=== PATIENT | female | born 1985 | race Caucasian/White ===

== ENCOUNTER → 2018-04-12 13:40 | Outpatient (CLI) | payer OTHER, SELFPAY ==
[2018-04-20 09:48] LABS: HPV APTIMA, High Risk Negative (Negative)
== END ==
PROVIDERS: Visit Provider Obstetrics & Gynecology
DX: Z12.4 Encounter for screening for malignant neoplasm of cervix (principal); N92.6 Irregular menstruation, unspecified
CPT/HCPCS: 88175; G0145

== ENCOUNTER → 2018-04-25 08:06 | Outpatient (CLI) | payer OTHER, SELFPAY ==
[2018-04-25 09:13] LABS: Hematocrit 36.4 % (37-47); Hemoglobin 10.3 g/dl (12.0-15.0); Mean Corp Hgb Conc 28.3 g/gl (32-36); Mean Corpuscular Hgb 21.4 pg (27.0-32.0); Mean Corpuscular Volume 75.7 fL (81-99); Mean Platelet Vol. 10.8 fl (6.2-12.0); Platelet Count 283 K/mm3 (150-450); RBC Distribution Width CV 16.9 % (11.6-14.6); RBC Distribution Width SD 46.5 fl (35.1-43.9); Red Blood Count 4.81 M/mm3 (4.2-5.4); White Blood Count 8.7 K/mm3 (4.4-11.0)
[2018-04-25 09:15] LABS: Scan Indicated on CBC? Y/N NO
[2018-04-25 09:33] LABS: Progesterone Level 0.19 ng/mL (See Comment); Vitamin D,25 Hydroxy 16.6 ng/mL (29.95-100.01)
[2018-04-25 09:38] LABS: ALB/GLOB Ratio 0.9 RATIO (0.9-2.4); AST(SGOT) 43 U/L (15-37); Alanine Aminotransfer ALT/SGPT 60 U/L (13-56); Albumin, Serum 3.5 g/dL (3.2-5.0); Alkaline Phosphatase 93 U/L (45-117); Anion Gap 9 (5-15); BUN 6 mg/dL (7-18); BUN/Creat Ratio 7.7 RATIO (10-20); Chloride 108 mmol/L (98-107); Cholesterol 141 mg/dL (200); Creatinine, Serum 0.78 mg/dL (0.55-1.02); EST Glomerular Filtration Rate 92 mL/min (>60); Est Glom Filt Rate - Afr Amer 111 mL/min (>60); Estradiol 42.7 pg/mL; Follicle Stimulating Hormone 3.9 mIU/mL; Free T3 2.9 pg/mL (2.18-3.98); Globulin 4.1 g/dL (2.2-4.2); Glucose 114 mg/dL (74-106); High Density Lipoprotein 30 mg/dL; Luteinizing Hormone 3.7 mIU/mL; Potassium 3.3 mmol/L (3.5-5.1); Protein, Total 7.6 g/dL (6.4-8.2); Sodium Level 142 mmol/L (136-145); T4 Free Direct 1.01 ng/dL (0.76-1.46); Thyroid Stim Hormone (TSH) 2.95 uIU/mL (0.358-3.74); Triglycerides 210 mg/dL; Very Low Density Lipoprotein 42 mg/dL (5-40)
[2018-04-25 14:48] LABS: Prolactin 7.7 ng/mL
[2018-04-26 09:17] LABS: DHEA Sulfate 128.6 ug/dL (84.8-378.0)
[2018-04-26 10:51] LABS: Sex Hormone-binding Globulin 19.8 nmol/L (24.6-122.0)
[2018-04-28 10:58] LABS: 17-Hydroxyprogesterone 41 ng/dL (.)
== END ==
PROVIDERS: Visit Provider Obstetrics & Gynecology
DX: N92.4 Excessive bleeding in the premenopausal period (principal); I10 Essential (primary) hypertension
CPT/HCPCS: 36415; 80053; 80061; 82306; 82533; 82627; 82670; 83001; 83002; 83498; 84144; 84146; 84270; 84403; 84439; 84443; 84481; 85027; 82626

== ENCOUNTER → 2018-05-16 08:13 | Outpatient (CLI) | payer OTHER, SELFPAY ==
--- NOTE | 2018-05-16 08:19 | US_ITS ---
STUDY: ABDOMINAL ULTRASOUND - RIGHT UPPER QUADRANT REASON FOR VISIT: Female, 32 years old. Elevated liver enzymes. Prior cholecystectomy. TECHNIQUE: Ultrasound evaluation of the right upper quadrant was performed with real-time and static sinclair-scale imaging. TECHNICAL QUALITY: Adequate. COMPARISON: None. FINDINGS: Liver: The liver is enlarged and measures 21.3 cm. There is increased echogenicity consistent with fatty infiltration. The bile ducts are within normal limits. There is hepatic color flow. The direction of portal flow is hepatopetal. There is no demonstrated mass lesion. Gallbladder: The patient is status post cholecystectomy. Common Bile Duct (C.B.D.): The common bile duct measures 4.4 mm. Pancreas: Normal size of the head, body and tail of the pancreas. There is increased echogenicity of the pancreas. There is no demonstrated pancreatic mass or cyst. Right Kidney: Normal size of the right kidney. The right kidney measures 12.4 cm x 6.7 cm x 5.8 cm. Normal renal cortex. The right cortex measures 1.8 cm. There is no demonstrated renal mass or cyst. There is no right hydronephrosis. US/Liver IMPRESSION: Hepatomegaly and fatty infiltration of the liver. Electronically Signed: Jameel Mckinney MD at 15:27 EDT Tel [phone], Service support ,
== END ==
PROVIDERS: Visit Provider Obstetrics & Gynecology
DX: R94.5 Abnormal results of liver function studies (principal)
CPT/HCPCS: 76705

== ENCOUNTER 2018-05-26 05:29 | Day surgery (SDC) | payer SELFPAY, OTHER ==
[2018-05-19 14:47] VITALS: BP 156/104; PULSE 89; RESP 18; TEMP 36.4; O2SAT 92; BMI 60.0
--- NOTE | 2018-05-19 15:07 | SDCEKG_ITS ---
Test Reason : Blood Pressure : / mmHG Vent. Rate : 091 BPM Atrial Rate : 091 BPM P-R Int : 158 ms QRS Dur : 102 ms QT Int : 380 ms P-R-T Axes : 028 032 035 degrees QTc Int : 467 ms Normal sinus rhythm Nonspecific ST abnormality Abnormal ECG Confirmed by SAMUEL AYALA ([id number]), newspaper editor managing NIKKI CHOI ([id number]) on 05/24/2018 1:44:44 PM Referred By: Rosalina Berrios Confirmed By:SAMUEL AYALA
[2018-05-19 15:53] LABS: Partial Thromboplast Time 28.5 Seconds (24.1-36.2); Prothrombin Time (Protime)PT. 13.5 SECONDS (11.7-14.9)
[2018-05-24 15:36] LABS: Thyroglobulin Antibody < 1.0 IU/mL (0.0-0.9); Thyroid Peroxidase AB 18 IU/mL (0-34)
[2018-05-26] VITALS (7 sets, daily range): BP systolic 121–156; BP diastolic 67–95; PULSE 88–99; RESP 16–30; TEMP 35.9–36.2; O2SAT 92–99; BMI 60.0
[2018-05-26 05:56] LABS: Internal QC Validated? YES +Cl - CLEAR BKGD; Pregnancy, Urine Negative Negative
--- NOTE | 2018-05-26 07:47 | EMB_PTH ---
PATIENT: TASIA EDWARDS LOC: [facility] [place] U#:[id number] AGE/SX: 32/F ROOM: RE05/26/[address]: Dr. Rosalina Fu MD : [id number] BED: DIS: 05/26/2018 SPEC #: [id number] RECD: 05/26/18 10:51 STATUS: AMANDA FIGUEROAVera #: [id number] PAMELA: 05/26/18 07:[address]: Rosalina Farrell DEPT: SURGICAL PATHOLOGY RECD BY: Teofilo Amin ENTERED: 05/26/18 11:55 SP TYPE: ENDOM BX/C OTHR DR: Dr. Stacy Malik MD Tissues: Endometrium, NOS Procedures: Surgery Specimen Level IV HEADER OPERATION: Hysteroscopy, dilation and curettage, Tyrone Clear PRE-OP DIAGNOSIS: Menorrhagia TISSUE SUBMITTED: Endometrial tissue MICROSCOPIC DIAGNOSIS Endometrial curettings: Endometrial adenocarcinoma, endometrioid type, FIGO grade 2. Fragments of benign ecto- and endocervical mucosa. DOROTEO:mateo 05/27/18 COMMENT Immunohistochemistry for mismatch repair protein can be performed if clinically indicated. Please notify the laboratory if it is needed. MICROSCOPIC DESCRIPTION Slides are reviewed. GROSS DESCRIPTION Received in fixative is one container labeled with the patient's name and designated endometrial curettings. The specimen consists of multiple irregular fragments of light bess soft tissue that in aggregate measure 7.5 x 6 x 1.5 cm. The entire specimen is submitted in 17 cassettes. / DOROTEO:mateo 05/26/18 TC:0 CPT: 69899
--- NOTE | 2018-05-26 08:40 | DCINST_ITS ---
Discharge Diet: No Restrictions Discharge Activity: Return to Normal Activity, May Shower, - - No tub bath for 2 weeks May resume sexual activity in: 4 weeks Call your doctor if your incision/area has: Sudden Increased Bleeding Call your doctor if you observe: Fever of 101 or Higher, Inability to urinate, Inability to have a bowel movement, Using more than one pad per hour, Shortness of breath, Chest pain, Calf discomfort, Uncontrolled pain Allergies/Adverse Reactions: Allergies sulfamethoxazole [From ] Allergy (Verified 05/19/18 14:37) SORES IN MOUTH trimethoprim [From ] Allergy (Verified 05/19/18 14:37) SORES IN MOUTH Medications to take at Discharge Calcium Carbonate [Calcium] 600 mg PO DAILY 05/19/18 Cholecalciferol (Vitamin D3) [Vitamin D3] 5,000 unit PO DAILY 05/19/18 Iron Carbonyl [Feosol] 65 mg PO BID 05/19/18 Metformin HCl [Glucophage] 1,000 mg PO BIDCM 05/19/18 Norethindrone [Aygestin] 2 tab PO DAILY 5 Days #20 tab 05/26/18 The following prescriptions were given: Norethindrone [Aygestin] 2 tab PO DAILY 5 Days #20 tab Primary Care Physician: Stacy Malik MD [Primary Care Provider] - Test Results: Test results from this visit will be discussed in further detail at your follow- up appointment, if applicable. Please Follow Up With: Rosalina Berrios MD When: 5-7 days
--- NOTE | 2018-05-26 08:40 | PCM.IMDPSTOP ---
Problem List (1) Anemia Status: Acute Qualifiers: Anemia type: iron deficiency Iron deficiency anemia type: chronic blood loss Qualified Code(s): D50.0 - Iron deficiency anemia secondary to blood loss (chronic) (2) BMI 60.0-69.9, adult Status: Acute (3) Excessive and frequent menstruation with irregular cycle Status: Acute (4) Metabolic syndrome Status: Acute Immediate Post-Op Note Date of Procedure: 05/26/18 Primary Surgeon/Physician: Rosalina Berrios, director of outpatient services: Mercedez Benson Pre-Operative Diagnosis: Menometrorrhagia, Thickened endometrial stripe Post-Operative Diagnosis: Menometrorrhagia, Thickened endometrial stipe Surgery/Procedure Performed:: Hysterosocpy, dilation and curettage, TruClear polypectomy Description of Surgical Findings:: Abundant polypoid tissue within endometrial cavity Estimated Blood Loss: 20 mL Specimen's removed: endometrial curettings Type of Anesthesia:: Local MAC ASA Class: ASA3 Severe Disease - Admit VTE Documentation VTE Present on Admission: No VTE Mechan Device Prophylaxis: SCD's VTE Pharm Prophylaxis ordered?: No
--- NOTE | 2018-05-26 09:00 | PCM.OPRPT ---
Problem List (1) Anemia Status: Acute Qualifiers: Anemia type: iron deficiency Iron deficiency anemia type: chronic blood loss Qualified Code(s): D50.0 - Iron deficiency anemia secondary to blood loss (chronic) (2) BMI 60.0-69.9, adult Status: Acute (3) Excessive and frequent menstruation with irregular cycle Status: Acute (4) Metabolic syndrome Status: Acute Report of Operation Date of Procedure: 05/26/18 Pre-Operative Diagnosis: Menometrorrhagia, Thickened endometrial stripe Post-Operative Diagnosis: Menometrorrhagia, Thickened endometrial stipe Surgery/Procedure Performed:: Hysterosocpy, dilation and curettage, TruClear polypectomy Description of Surgical Findings:: Abundant polypoid tissue within endometrial cavity drapery inspector: Mercedez Benson Type of Anesthesia:: Local MAC Specimen's removed: endometrial curettings Estimated Blood Loss (mL): 20 mL Description of Procedure: Patient taken to the operating room and signed and performed. She is placed in the dorsal supine position and induced under MAC. She is then placed into dorsal lithotomy and examination under anesthesia performed. The perineum was prepped and draped in sterile fashion. The bladder was straight cathed that arise. A long weighted speculum placed the vagina and the cervix visualized and grasped at the anterior cervical lip. A paracervical block was placed to a total of 20 cc of 1% lidocaine without epinephrine. The cervix was already significantly dilated consistent with 26 [place]. There was abundant vaginal bleeding without any hemorrhage however. Hysteroscopy was performed demonstrating a large intrauterine polyp as well as papillary changes throughout the uterine cavity. I was unable to visualize the ostia due to the prominence of changes in the polyp. The fluid deficit was quickly reached due to the saline required for optimal visualization given the amount of bleeding present. 1500 mL a aborted the true clear procedure. Traditional D&C with polypectomy was performed retrieving abundant tissue. The procedure was completed with improvement of the bleeding. The tenaculum and speculum were removed. The tenaculum site was hemostatic. The patient was placed into dorsal supine position, awakened and transferred to the recovery room without complication. Sponge counts were correct ?2. - Complications None - Admit VTE Documentation VTE Present on Admission: No VTE Mechan Device Prophylaxis: SCD's
--- NOTE | 2018-05-26 10:18 | SUR.PHASEII ---
AT 1001, PHASE 2 COMPLETE. AWAITING RIDE HOME WHICH CANNOT COME UNTIL 1200 AT THE EARLIEST. PATIENT AND FAMILY 'HOTEL STATUS' AT THIS POINT FOR THEIR CONVENIENCE.
--- NOTE | 2018-05-27 08:41 | OP.PCM_ITS ---
Problem List (1) Anemia Status: Acute Qualifiers: Anemia type: iron deficiency Iron deficiency anemia type: chronic blood loss Qualified Code(s): D50.0 - Iron deficiency anemia secondary to blood loss (chronic) (2) BMI 60.0-69.9, adult Status: Acute (3) Excessive and frequent menstruation with irregular cycle Status: Acute (4) Metabolic syndrome Status: Acute Report of Operation Date of Procedure: 05/26/18 Pre-Operative Diagnosis: Menometrorrhagia, Thickened endometrial stripe Post-Operative Diagnosis: Menometrorrhagia, Thickened endometrial stipe Surgery/Procedure Performed:: Hysterosocpy, dilation and curettage, TruClear polypectomy Description of Surgical Findings:: Abundant polypoid tissue within endometrial cavity travel nurse: Mercedez Benson Type of Anesthesia:: Local MAC Specimen's removed: endometrial curettings Estimated Blood Loss (mL): 20 mL Description of Procedure: Patient taken to the operating room and signed and performed. She is placed in the dorsal supine position and induced under MAC. She is then placed into dorsal lithotomy and examination under anesthesia performed. The perineum was prepped and draped in sterile fashion. The bladder was straight cathed that arise. A long weighted speculum placed the vagina and the cervix visualized and grasped at the anterior cervical lip. A paracervical block was placed to a total of 20 cc of 1% lidocaine without epinephrine. The cervix was already significantly dilated consistent with 26 [place]. There was abundant vaginal bleeding without any hemorrhage however. Hysteroscopy was performed demonstrating a large intrauterine polyp as well as papillary changes throughout the uterine cavity. I was unable to visualize the ostia due to the prominence of changes in the polyp. The fluid deficit was quickly reached due to the saline required for optimal visualization given the amount of bleeding present. 1500 mL a aborted the true clear procedure. Traditional D&C with polypectomy was performed retrieving abundant tissue. The procedure was completed with improvement of the bleeding. The tenaculum and speculum were removed. The tenaculum site was hemostatic. The patient was placed into dorsal supine position, awakened and transferred to the recovery room without complication. Sponge counts were correct ?2. - Complications None - Admit VTE Documentation VTE Present on Admission: No VTE Mechan Device Prophylaxis: SCD's
== END 2018-05-26 10:01 | disposition home or self-care (01) ==
LOC: SDC 05:30 → AC 05:31
PROVIDERS: Anesthesiology; Visit Provider Obstetrics & Gynecology
PROC: 0UDB8ZZ Extraction of Endometrium, Via Natural or Artificial Opening Endoscopic (ICD-10-PCS; CPT 58558; principal; 2018-05-26 07:05)
DX: C54.1 Malignant neoplasm of endometrium (principal); N92.1 Excessive and frequent menstruation with irregular cycle; D50.0 Iron deficiency anemia secondary to blood loss (chronic); I10 Essential (primary) hypertension; E88.81 Metabolic syndrome and other insulin resistance; G47.30 Sleep apnea, unspecified; Z79.84 Long term (current) use of oral hypoglycemic drugs; Z79.899 Other long term (current) drug therapy
CPT/HCPCS: 58558; 36415; 81025; 85610; 85730; 86376; 86800; 86850; 86900; 88305; 93005; J7120; J2405

== ENCOUNTER → 2019-01-10 15:09 | Outpatient (CLI) | payer OTHER, SELFPAY ==
[2018-05-26 05:52] VITALS: BMI 60.0
== END ==
PROVIDERS: Visit Provider Obstetrics & Gynecology
DX: Z12.4 Encounter for screening for malignant neoplasm of cervix (principal)
CPT/HCPCS: 88175; G0145

== ENCOUNTER → 2022-04-07 | Outpatient (CLI) | payer OTHER, SELFPAY ==
[2022-04-07 11:28] LABS: Hematocrit 43.9 % (37-47); Hemoglobin 13.5 g/dL (12.0-15.0); Mean Corp Hgb Conc 30.8 g/dL (32-36); Mean Corpuscular Hgb 24.6 pg (27.0-32.0); Mean Platelet Vol. 12.9 fl (6.2-12.0); Platelet Count 220 K/mm3 (150-450); RBC Distribution Width CV 14.8 % (11.6-14.6); RBC Distribution Width SD 43.2 fl (35.1-43.9); Red Blood Count 5.49 M/mm3 (4.2-5.4); White Blood Count 7.6 K/mm3 (4.4-11.0)
[2022-04-07 11:53] LABS: T3 Total - Triiodothyronine 1.31 ng/mL (0.6-1.81); Vitamin B12 766 pg/mL (211-911); Vitamin D,25 Hydroxy 30.5 ng/mL
[2022-04-07 11:57] LABS: Hemoglobin A1c 4.7 % (3.8-5.6)
[2022-04-07 12:01] LABS: AST(SGOT) 33 U/L (15-37); Alanine Aminotransfer ALT/SGPT 53 U/L (13-56); Albumin, Serum 3.9 g/dL (3.2-5.0); Alkaline Phosphatase 99 U/L (45-117); Anion Gap 3 (5-15); BUN 11 mg/dL (7-18); BUN/Creat Ratio 11.1 RATIO (10-20); Calcium,Total 10.6 mg/dL (8.5-10.1); Chloride 110 mmol/L (98-107); Cholesterol 198 mg/dL (200); Creatinine, Serum 0.99 mg/dL (0.55-1.02); EST Glomerular Filtration Rate 68 mL/min (>60); Est Glom Filt Rate - Afr Amer 82 mL/min (>60); Estradiol 11.6 pg/mL; Ferritin 28 ng/mL (8-252); Free T3 2.6 pg/mL (2.18-3.98); Globulin 3.9 g/dL (2.2-4.2); Glucose 95 mg/dL (74-106); High Density Lipoprotein 46 mg/dL; Potassium 3.6 mmol/L (3.5-5.1); Protein, Total 7.8 g/dL (6.4-8.2); Sodium Level 143 mmol/L (136-145); T4 Free Direct 1.12 ng/dL (0.76-1.46); Thyroid Stim Hormone (TSH) 2.75 uIU/mL (0.358-3.74); Triglycerides 121 mg/dL; Very Low Density Lipoprotein 24 mg/dL (5-40)
[2022-04-08 20:57] LABS: Sex Hormone-binding Globulin 30.2 nmol/L (24.6-122.0)
== END | disposition home or self-care (01) ==
PROVIDERS: Visit Provider Obstetrics & Gynecology
DX: R53.83 Other fatigue (principal); R63.5 Abnormal weight gain; Z78.0 Asymptomatic menopausal state
CPT/HCPCS: 36415; 80053; 80061; 82306; 82607; 82670; 82728; 83036; 84270; 84403; 84439; 84443; 84480; 84481; 85027

== ENCOUNTER → 2022-11-18 | Outpatient (CLI) | payer OTHER, SELFPAY | END | disposition home or self-care (01) | PROVIDERS: PCP Family Medicine; Referring Provider Internal Medicine Endocrinology, Diabetes & Metabolism; Visit Provider Internal Medicine Endocrinology, Diabetes & Metabolism | DX: E27.9 Disorder of adrenal gland, unspecified (principal) | CPT/HCPCS: 36415; 82533 ==

== ENCOUNTER 2023-10-20 14:54 | Inpatient (IN) | payer OTHER, SELFPAY ==
[2023-10-20 14:56] VITALS: BP 167/91; PULSE 124; RESP 14; TEMP 36.6; O2SAT 94
--- NOTE | 2023-10-20 15:09 | CT_ITS ---
EXAM: CT ABDOMEN AND PELVIS WITHOUT INTRAVENOUS CONTRAST CLINICAL INDICATION: Kidney Stone TECHNIQUE: Helically acquired images were obtained of the abdomen and pelvis without intravenous contrast. This CT exam was performed using one or more of the following dose reduction techniques: automated exposure control, adjustment of the mA and/or kV according to patient size, and/or use of iterative reconstruction technique. COMPARISON: No relevant prior studies available. FINDINGS: LOWER THORAX: Unremarkable. Lung bases are clear. No cardiomegaly. No significant pericardial effusion. ABDOMEN: LIVER: There is fatty infiltration of the liver. GALLBLADDER AND BILE DUCTS: Gallbladder is nonvisualized and may be surgically absent. No intra- or extrahepatic biliary ductal dilation. PANCREAS: Unremarkable. No focal cystic mass. SPLEEN: Unremarkable. Normal size without focal cystic or solid mass. ADRENALS: Unremarkable. No nodules. KIDNEYS AND URETERS: There is left-sided hydronephrosis. There is a 9 mm stone in the proximal left ureter. There are multiple nonobstructing calyceal stones bilaterally. Normal renal size and position. STOMACH AND BOWEL: Unremarkable. No stomach or bowel distention. No focal inflammatory change. PELVIS: APPENDIX: No evidence of acute appendicitis. BLADDER: Unremarkable. REPRODUCTIVE: The patient status post hysterectomy. ABDOMEN and PELVIS: INTRAPERITONEAL SPACE: Unremarkable. No ascites or other fluid collection. No free air. BONES/JOINTS: Unremarkable. No suspicious lytic or blastic abnormality. SOFT TISSUES: Unremarkable. No discrete abdominal or pelvic wall hernia. VASCULATURE: Unremarkable. Abdominal aorta is non-dilated. LYMPH NODES: Unremarkable. No enlarged lymph nodes. CT/Abdomen/Pelvis without Cont IMPRESSION: Obstruction of the left collecting system due to a 9 mm stone in the proximal ureter. There is left-sided hydronephrosis. There are bilateral nonobstructing calyceal stones. Electronically Signed: Melchor Gonzalez MD at 16:34 EST ,
--- NOTE | 2023-10-20 15:10 | EDS_ITS ---
HPI HPI - GI History of Present Illness Chief Complaint: Flank Pain Narrative Narrative: 38-year-old female past medical history of previous ureteral stone, renal stone, insulin resistance, presents with left flank pain that began last evening. Feels somewhat similar to her previous ureteral stone. She relates history that she was seen at [facility] by urologist and had a ureteral stone that made her very sick. While they try to go after the left ureteral stone, she has a large stone in her left kidney which she was told they could not perform surgery on secondary to her weight. She has past surgical history of cholecystectomy and total hysterectomy. She denies any exacerbating or alleviating factors to her left flank pain. She denies any dysuria or hematuria, no overt fever, but has been chilled and nauseated. No vomiting. She presents because of the left flank pain that feels similar to her previous ureteral stone but the pain is not as severe. She has been taking ibuprofen with mild relief. She last took this at 10 AM, approximately 5 hours ago[address] [facility] Medical History (Updated 10/20/23 @ 16:19 by Lanette Masters) Kidney stones Home Medications calcium carbonate 600 mg calcium (1,500 mg) tablet 600 mg PO DAILY SUPPLEMENT 05/19/18 [History Last Taken 10/19/23] metformin 1,000 mg tablet 1,000 mg PO BIDCM DIABETES 05/19/18 [History Last Taken 10/19/23] magnesium oxide 420 mg tablet 420 mg PO DAILY supplement 10/20/23 [History Last Taken 10/19/23] multivitamin 1 tab PO DAILY health maintenance 10/20/23 [History Last Taken 10/19/23] Allergy/AdvReac Type Severity Reaction Status Date / Time sulfamethoxazole Allergy SORES IN Verified 10/20/23 14:55 [From ] MOUTH trimethoprim [From ] Allergy SORES IN Verified 10/20/23 14:55 MOUTH Social History Smoking Status: Never smoker ROS ROS ED ROS Narrative Constitutional: No fever, positive chills. HEENT: No sore throat. No neck pain. No loss of vision. No rhinorrhea. Cardiovascular: No chest pain. No palpitations. No pedal edema. Respiratory: No cough, no shortness of breath. Abdominal: No abdominal pain. Positive nausea. No vomiting. Genitourinary: No dysuria. No hematuria. Positive left flank pain. Musculoskeletal: No myalgias. No arthralgias. Neurologic: No headaches. No dizziness. No lightheadedness. Skin: No rash. No change in color. Psychiatric: No depression. No anxiety. EXAM Physical Exam Narrative Exam Narrative: Afebrile. Vital signs noted. HEENT: Normocephalic. Atraumatic. PERRL, EOMI. Neck soft and supple. No point tenderness or step off. Cardiovascular: Regular rate and rhythm. No murmurs, rubs, or gallops appreciated. Respiratory: No tachypnea. Lungs clear to auscultation bilaterally. Gastrointestinal: Abdomen soft, nontender, obese, with normoactive bowel sounds. No rebound or guarding. No CVA tenderness to percussion, left. Neurological: Awake. Alert. Nonfocal, nonlateralizing. Skin: No rash. Normal color. No pallor. Musculoskeletal: No pedal edema. Full range of motion extremities. Const Vital Signs: 10/20/23 14:56 10/20/23 16:26 10/20/23 16:45 Temperature 98 F 98.7 F Temperature Source Temporal Oral Pulse Rate 124 H 113 H 114 H Respiratory Rate 14 18 18 Blood Pressure 167/91 H 145/76 H 120/74 Blood Pressure Mean 116 99 89 Pulse Ox 94 94 97 Oxygen Delivery Method Room Air Room Air Room Air MDM MDM MDM Narrative Medical decision making narrative: Concern is for ureterolithiasis versus pyelonephritis. She is tachycardic. There is low concern for sepsis at this point although she is tachycardic. I will obtain a CBC and a BMP and she will be administered IV fluids at the rate of 250 mL/h. She was given ondansetron and ketorolac for analgesia and CT will be obtained to look for ureteral stone causing her left flank pain. I reviewed her laboratory work and she has a normal white count of 10.8, hemoglobin normal at 13.4, platelet count normal at 160. BMP is significant for chloride of 108, slight elevation which I think is nonspecific, she does have an acute kidney injury with a BUN of 15 and creatinine elevated at 1.30. Lactic acid is also elevated at 2.6, but this may be secondary to mild dehydration. WBC in the urine is elevated at 10-25 with negative nitrites. This will be sent for culture. CT of the abdomen and pelvis without contrast was reviewed. She does has a 9 mm stone at the ureteropelvic junction. It is a proximal stone with hydronephrosis. As she states she became septic previously, she is still tachycardic with a lactic acidosis, I discussed patient with Dr. Simmons who will admit the patient. Patient is in stable condition. History & Record Review Discussion w/independent historian: Patient and Family Lab Data Attestation: I reviewed the patient's lab results. Labs: Laboratory Results - last 24 hr 10/20/23 10/20/23 15:15 15:40 WBC 10.8 RBC 5.68 H Hgb 13.4 Hct 44.0 MCV 77.5 L MCH 23.6 L MCHC 30.5 L RDW Std Deviation 42.6 RDW Coeff of Gregory 15.3 H Plt Count 160 MPV 10.9 Immature Gran % (Auto) 0.500 Neut % (Auto) 86.7 H Lymph % (Auto) 4.8 L [place] % (Auto) 7.4 Eos % (Auto) 0.2 Baso % (Auto) 0.4 Absolute Neuts (auto) 9.4 H Absolute Lymphs (auto) 0.52 L Nucleated RBC % 0 Differential Comment SCANNED Sodium 143 Potassium 4.2 Chloride 108 H Carbon Dioxide 26.0 Anion Gap 9 BUN 15 Creatinine 1.30 H Estim Creat Clear Calc 55.47 Est GFR (MDRD) Af Amer 59 L Est GFR (MDRD) Non-Af 49 L BUN/Creatinine Ratio 11.5 Glucose 115 H Lactic Acid 2.6 H* Calcium 9.9 Urine Color Yellow Urine Clarity Sl. Cloudy Urine pH 8.0 Ur Specific [place] 1.010 Urine Protein 30 H Urine Glucose (UA) Normal Urine Ketones Negative Urine Occult Blood 25 H Urine Nitrite Negative Urine Bilirubin Negative Urine Urobilinogen Normal Ur Leukocyte Esterase 25 H Urine RBC 5-10 SEEN Urine WBC 10-25 SEEN Ur Squamous Epith Cells 0-5 SEEN Urine Bacteria RARE Urine Mucus 0 SEEN Radiography Diagnostic Testing: Clinical Impression(s) from Imaging Studies Abdomen/Pelvis CT 10/20/23 15:09 IMPRESSION: Obstruction of the left collecting system due to a 9 mm stone in the proximal ureter. There is left-sided hydronephrosis. There are bilateral nonobstructing calyceal stones. Electronically Signed: Melchor Gonzalez MD at 16:34 EST , Discharge Plan Disposition Disposition: Acute Care [facility] Discharge Date/Time: 10/20/23 17:33
[2023-10-20] MEDS: Ketorolac 30 MG/ML Syringe IV (15:17)
[2023-10-20] MEDS: 0.9% Normal Saline (1000mL) 1,000 ML 250 ML IV (15:17)
[2023-10-20] MEDS: Ondansetron 4 MG/2 ML Vial IV (15:17)
[2023-10-20 15:21] VITALS: BMI 66.6
[2023-10-20 15:33] LABS: Absolute Lymphocyte Count 0.52 X10^3/uL (0.83-4.51); Absolute Neutrophil Count 9.4 X10^3/uL (2.0-7.7); Basophil# 0.04 X10^3/uL; Basophil% 0.4 % (0-1); Eosinophil# 0.02 X10^3/uL; Eosinophils% 0.2 % (0-5); Hemoglobin 13.4 g/dL (12.0-15.0); Lymphocyte # 0.52 X10^3/ul (0.83-4.51); Lymphocyte % 4.8 % (19-41); Mean Corp Hgb Conc 30.5 g/dL (32-36); Mean Corpuscular Hgb 23.6 pg (27.0-32.0); Mean Corpuscular Volume 77.5 fL (81-99); Mean Platelet Vol. 10.9 fl (6.2-12.0); Monocyte% 7.4 % (0-10); NRBC Flagged by Analyzer 0 % (0-5); Neutrophil # 9.41 X10^3/uL (2.7-7.7); Neutrophil % 86.7 % (47-70); POSITIVE DIFFERENTIAL YES; Platelet Count 160 K/mm3 (150-450); RBC Distribution Width CV 15.3 % (11.6-14.6); RBC Distribution Width SD 42.6 fl (35.1-43.9); Red Blood Count 5.68 M/mm3 (4.2-5.4); White Blood Count 10.8 K/mm3 (4.4-11.0)
[2023-10-20 15:35] LABS: Differential Indicated SCAN CRITERIA MET
[2023-10-20 15:46] LABS: Anion Gap 9 (5-15); BUN 15 mg/dL (7-18); BUN/Creat Ratio 11.5 RATIO (10-20); Calcium,Total 9.9 mg/dL (8.5-10.1); Chloride 108 mmol/L (98-107); EST Glomerular Filtration Rate 49 mL/min (>60); Est Glom Filt Rate - Afr Amer 59 mL/min (>60); Estimated Creatinine Clearance 55.47 ml/min; Glucose 115 mg/dL (74-106); Potassium 4.2 mmol/L (3.5-5.1); Sodium Level 143 mmol/L (136-145)
[2023-10-20 15:50] LABS: Mucous, Urine 0 SEEN /hpf (<or=2+)
[2023-10-20 16:00] LABS: Color, Urine Yellow (Yellow); Glucose, Dipstick Normal (Normal); Ketone-Dipstick Negative (Negative); Leukocyte Esterase-Dipstick 25 /ul (Negative); Nitrite-Dipstick Negative (Negative); Occult Blood-Urine 25 /ul (Negative); Protein-Dipstick 30 mg/dl (Negative); Urine Bilirubin Dipstick Negative (Negative); Urine Clarity Sl. Cloudy (Clear); Urine Urobilinogen Normal (Normal)
[2023-10-20 16:08] LABS: Red Blood Cells-Urine 5-10 SEEN /hpf (0-5); White Blood Cells 10-25 SEEN /hpf (0-5)
[2023-10-20 16:09] LABS: Bacteria RARE /hpf (None Seen); Squamous Epithelial Cells - UA 0-5 SEEN /hpf (5-10)
[2023-10-20 16:15] LABS: Differential Comment SCANNED
[2023-10-20 16:17] LABS: Lactic Acid 2.6 mmol/L (0.4-1.9)
[2023-10-20] MEDS: 0.9% Normal Saline (1000mL) 1,000 ML 999 ML IV (16:22)
[2023-10-20 16:26] VITALS: BP 145/76; PULSE 113; RESP 18; TEMP 37.1; O2SAT 94
[2023-10-20 16:45] VITALS: BP 120/74; PULSE 114; RESP 18; O2SAT 97
--- NOTE | 2023-10-20 16:48 | NURSING ---
MED SURG AMANDA LEFT PROXIMAL URETERAL STONE
[2023-10-20] MEDS: Ceftriaxone 1 GM/50 ML BAG IV (17:24)
[2023-10-20 18:12] VITALS: BP 146/82; PULSE 111; RESP 18; TEMP 37.6; O2SAT 95
[2023-10-20] MEDS: 0.9% Saline Lock 10 ML Syringe IV (18:23)
[2023-10-20] MEDS: Lactated Ringers 1,000 ML 125 ML IV (19:00)
[2023-10-20 19:28] LABS: Reflex Lactate? Y
[2023-10-20 20:31] LABS: Lactic Acid 3.5 mmol/L (0.4-1.9)
[2023-10-20] MEDS: oxyCODONE 5 MG Tablet PO (21:18)
[2023-10-20 21:24] VITALS: BMI 66.6
[2023-10-20 21:55] VITALS: BP 139/70; PULSE 104; RESP 16; TEMP 37.1; O2SAT 99
--- NOTE | 2023-10-20 22:59 | PCM.CONS.GEN ---
Assessment & Plan Assessment/Plan (1) Lactic acidosis: (2) Ureteral calculus: (3) BMI 60.0-69.9, adult: PLAN: Plan 1. Lactic acidosis rising from 2.6 mmol/L present on admission to 3.5 mmol/L now after being empirically treated with Rocephin IV in the ER - Stop IV Rocephin and add IV Zosyn for broader coverage in this patient who has had a history of several renal calculi requiring intervention. We will also vigorously volume resuscitate with normal saline and recheck her lactic acid level in the a.m. to ensure improvement with this line of treatment. Patient has no signs of sepsis at this time. 2. ~1 cm proximal left ureteral stone with suspected early UTI causing #1 - Dr. Simmons to take patient for urgent stent placement and possible lithotripsy in the a.m. 3. Morbid obesity; with BMI of 66.6 and weight of 412 pounds at 5 foot 6 inches - Weight loss will be recommended. Check TSH. 4. ANGELES; on CPAP - Resume CPAP as previous. 5. History of insulin resistance; on metformin - Restart metformin when patient is able to tolerate oral intake. Hemoglobin A1c already ordered and pending at this time. 6. History of allergy to trimethoprim-sulfamethoxazole; which causes sores in her mouth - Noted. 7. History of cholecystectomy - Noted. 8. History of total hysterectomy - Noted. 9. DVT prophylaxis - Start SCDs but avoid blood thinners at this time with pending urologic procedure. Total time: Approximately 55 minutes. HPI Consult Data Date of Consult: 10/21/23 HPI Narrative Reason for Consultation: Elevating lactates with ~1 cm left ureteral stone. HPI Narrative: TASIA WYLIE, is a 38 F with a past medical history of morbid obesity; with a BMI of 66.6 this admission, ANGELES; on CPAP, history of insulin resistance; on metformin, history of allergy to trimethoprim-sulfamethoxazole; which causes sores in her mouth, history of cholecystectomy, history of total hysterectomy and history of renal calculi; requiring stent placement and lithotripsy who presented to [facility] ER complaining of left flank pain. Mrs. Wylie reports her symptoms began approximately 1 day prior to admission on the evening of 10/19/2023 with the abrupt onset of left flank pain, nausea and malaise that was very similar to her previous bouts of bouts of renal colic. She states she was recently seen at [facility] by urologist there and she was allegedly told they could not perform surgery on her due to her excessive weight of approximately 412 pounds. She claims her left flank pain is severe and was made slightly better after taking ibuprofen. She denies dysuria, hematuria, vomiting or overt fever but she has been chilled and nauseated. She was subsequently admitted to the urology service of Dr. Simmons after receiving an empiric dose of IV Rocephin in the ER. Then later in the evening she was noted to have an increasing lactate from 2.6 mmol/L present on admission up to 3.5 mmol/L which prompted hospitalist consultation for medical management. Her was at the bedside and he helped to augment the history. She was then started on IV Zosyn in addition to IV fluids with a repeat lactate pending in the a.m. and no signs of sepsis at this time. Thank you for allowing us to participate in the care of your patient. [facility] Medical History CPAP (continuous positive airway pressure) dependence Diabetes Kidney stones Sleep apnea Home Medications calcium carbonate 600 mg calcium (1,500 mg) tablet 600 mg PO DAILY SUPPLEMENT 05/19/18 [History Last Taken 10/19/23] metformin 1,000 mg tablet 1,000 mg PO BIDCM DIABETES 05/19/18 [History Last Taken 10/19/23] magnesium oxide 420 mg tablet 420 mg PO DAILY supplement 10/20/23 [History Last Taken 10/19/23] multivitamin 1 tab PO DAILY health maintenance 10/20/23 [History Last Taken 10/19/23] Allergy/AdvReac Type Severity Reaction Status Date / Time sulfamethoxazole Allergy SORES IN Verified 10/20/23 14:55 [From Julra] MOUTH trimethoprim [From ] Allergy SORES IN Verified 10/20/23 14:55 MOUTH Surgical History S/P hysterectomy Social History Smoking Status: Never smoker ROS ROS Narrative Review of systems: Constitutional: Patient admits to chills but she denies fever. Eyes: Patient denies visual changes. ENT: Patient denies runny nose, sore throat or ear pain. Cardiovascular: Patient denies chest pain or palpitations. Respiratory: Patient denies shortness of breath or cough. Gastrointestinal: Patient admits to nausea but denies abdominal pain or vomiting. Genitourinary: Patient admits to severe left flank pain radiating into her groin but she denies dysuria or hematuria. Musculoskeletal: Patient denies arthralgias or myalgias. Neurologic: Patient denies headache, dizziness or focal neurologic deficits. Integumentary: Patient denies rash or change in skin color. Psychiatric: Patient denies depression or anxiety. Allergic: Patient denies lip swelling, tongue swelling or urticaria. Hematologic: Patient denies easy bleeding or easy bruisability. 14 point review of systems otherwise negative except for positives noted above in HPI. Physical Exam Const alert, oriented x3 and healthy appearing Constitutional Narrative: Patient is morbidly obese and appears moderately uncomfortable. General Appearance: cooperative HEENT normocephalic, head/scalp atraumatic, hearing grossly normal bilaterally and moist oral mucous membranes Eyes PERRL, EOMs intact bilaterally and conjunctivae normal Neck no lymphadenopathy and supple Resp normal respiratory effort, no retractions, no use of accessory muscles and clear to auscultation bilaterally Cardio regular rate and regular rhythm GI normal to inspection, nondistended, normoactive bowel sounds, soft to palpation, non-tender and non-distended Extremity normal to inspection Skin Skin Narrative: Patient has no evidence of rash at this time. Neuro oriented x3, CN's II-XII intact bilaterally, moves all extremities, no focal motor deficits and no sensory deficits noted Sensorium / Orientation: awake, alert, oriented to person, oriented to place and oriented to time Speech: speech normal Motor Exam: strength 5/5 throughout Psych affect normal Medical Records Data Attestation: I reviewed the patient's medical records Lab / Micro Data Attestation: I reviewed the patient's lab results. 10/20/23 15:15 10/20/23 15:15 Labs: Laboratory Results - last 24 hr 10/20/23 15:15: WBC 10.8, RBC 5.68 H, Hgb 13.4, Hct 44.0, MCV 77.5 L, MCH 23.6 L, MCHC 30.5 L, RDW Std Deviation 42.6, RDW Coeff of Gregory 15.3 H, Plt Count 160, MPV 10.9, Immature Gran % (Auto) 0.500, Neut % (Auto) 86.7 H, Lymph % (Auto) 4.8 L, [place] % (Auto) 7.4, Eos % (Auto) 0.2, Baso % (Auto) 0.4, Absolute Neuts (auto) 9.4 H, Absolute Lymphs (auto) 0.52 L, Nucleated RBC % 0, Differential Comment SCANNED, Sodium 143, Potassium 4.2, Chloride 108 H, Carbon Dioxide 26.0, Anion Gap 9, BUN 15, Creatinine 1.30 H, Estim Creat Clear Calc 55.47, Est GFR (MDRD) Af Amer 59 L, Est GFR (MDRD) Non-Af 49 L, BUN/Creatinine Ratio 11.5, Glucose 115 H, Lactic Acid 2.6 H*, Calcium 9.9 10/20/23 15:40: Urine Color Yellow, Urine Clarity Sl. Cloudy, Urine pH 8.0, Ur Specific [place] 1.010, Urine Protein 30 H, Urine Glucose (UA) Normal, Urine Ketones Negative, Urine Occult Blood 25 H, Urine Nitrite Negative, Urine Bilirubin Negative, Urine Urobilinogen Normal, Ur Leukocyte Esterase 25 H, Urine RBC 5-10 SEEN, Urine WBC 10-25 SEEN, Ur Squamous Epith Cells 0-5 SEEN, Urine Bacteria RARE, Urine Mucus 0 SEEN 10/20/23 19:50: Lactic Acid 3.5 H* Imagaing Radiology Impression Abdomen/Pelvis CT 10/20/23 15:09 IMPRESSION: Obstruction of the left collecting system due to a 9 mm stone in the proximal ureter. There is left-sided hydronephrosis. There are bilateral nonobstructing calyceal stones. Electronically Signed: Melchor Gonzalez MD at 16:34 EST , Charges/Coding Visit Charges Inpatient E&M: 22108 Init Hosp L2
[2023-10-21] VITALS (25 sets, daily range): BP systolic 127–162; BP diastolic 64–96; PULSE 91–162; RESP 16–42; TEMP 36.1–39.6; O2SAT 79–100; BMI 66.6
[2023-10-21] MEDS: Ketorolac 15 MG/ML Vial IV (00:13)
[2023-10-21] MEDS: 0.9% Saline Lock 10 ML Syringe IV (00:13)
[2023-10-21] MEDS: Piperacil/Tazobactam 3.375 GM in 0.9% Normal Saline (50mL MB+) 50 ML IV ×4 (00:13→22:56)
[2023-10-21] MEDS: 0.9% Normal Saline (250mL Bag) 250 ML 15 ML IV (00:14)
[2023-10-21] MEDS: 0.9% Normal Saline (1000mL) 1,000 ML 200 ML IV ×2 (00:15→04:58)
--- NOTE | 2023-10-21 05:29 | EKG12_ITS ---
Test Reason : AM EKG Blood Pressure : / mmHG Vent. Rate : 102 BPM Atrial Rate : 102 BPM P-R Int : 150 ms QRS Dur : 096 ms QT Int : 356 ms P-R-T Axes : 061 061 091 degrees QTc Int : 463 ms Sinus tachycardia Septal infarct , age undetermined Abnormal ECG When compared with ECG of 19-MAY-2018 13:59, No significant change was found Confirmed by ISAIAH PASTRANA, MIMI ([id number]), technical writer and editor FIORDALIZA SINGH ([id number]) on 11/02/2023 10:12:35 AM Referred By: Confirmed By:MIMI COLON MD
--- NOTE | 2023-10-21 06:00 | EKG12_ITS ---
Test Reason : TACHY Blood Pressure : / mmHG Vent. Rate : 144 BPM Atrial Rate : 144 BPM P-R Int : 130 ms QRS Dur : 098 ms QT Int : 286 ms P-R-T Axes : 065 051 129 degrees QTc Int : 442 ms Sinus tachycardia Marked ST abnormality, possible inferolateral subendocardial injury Abnormal ECG When compared with ECG of 21-OCT-2023 05:29, MANUAL COMPARISON REQUIRED, DATA IS UNCONFIRMED Confirmed by ISAIAH PASTRANA, MIMI ([id number]), communications editor FIORDALIZA SINGH ([id number]) on 10/22/2023 2:09:48 PM Referred By: ALLAN Confirmed By:MIMI COLON MD
[2023-10-21 06:02] LABS: Hemoglobin 11.8 g/dL (12.0-15.0); Mean Corp Hgb Conc 30.3 g/dL (32-36); Mean Corpuscular Hgb 23.6 pg (27.0-32.0); Mean Corpuscular Volume 77.8 fL (81-99); Mean Platelet Vol. 11.1 fl (6.2-12.0); Platelet Count 124 K/mm3 (150-450); RBC Distribution Width CV 15.6 % (11.6-14.6); RBC Distribution Width SD 43.4 fl (35.1-43.9); Red Blood Count 5.01 M/mm3 (4.2-5.4); White Blood Count 10.6 K/mm3 (4.4-11.0)
[2023-10-21 06:26] LABS: Anion Gap 6 (5-15); BUN 18 mg/dL (7-18); BUN/Creat Ratio 10.9 RATIO (10-20); Calcium,Total 8.9 mg/dL (8.5-10.1); Chloride 111 mmol/L (98-107); Creatinine, Serum 1.65 mg/dL (0.55-1.02); EST Glomerular Filtration Rate 37 mL/min (>60); Est Glom Filt Rate - Afr Amer 45 mL/min (>60); Glucose 125 mg/dL (74-106); Potassium 3.7 mmol/L (3.5-5.1); Sodium Level 142 mmol/L (136-145)
[2023-10-21 06:29] LABS: Lactic Acid 1.1 mmol/L (0.4-1.9)
[2023-10-21 06:42] LABS: Thyroid Stim Hormone (TSH) 0.89 uIU/mL (0.358-3.74)
--- NOTE | 2023-10-21 08:17 | PCM.PN.HOSP ---
Reason for Visit Reason for Visit: Diagnoses Acidosis, unspecified (10/20/23) Calculus of ureter (10/20/23) Body mass index [BMI] 60.0-69.9, adult (10/20/23) Subjective Subjective Patient underwent cystoscopy today with left ureteral stent placement. Patient was reportedly stable over in the PACU but upon arrival to the floor, patient was notably hypoxic around 79%. Patient was also tachypneic with a respiratory rate in the 40s. Patient was placed on nasal cannula at 5 L but still hypoxic and tachypneic and was placed on nonrebreather where her pulse ox improved to 99%. Patient is also notably tachycardic which appeared to be sinus. Patient denies any chest pain or palpitations. Is breathing more comfortably was changed over to nonrebreather. Objective Data Objective Data Vital Signs: Vital Signs Temp Pulse Resp BP Pulse Ox O2 Del Method 38.9 C H 102 H 18 144/88 H 97 Room Air 10/21/23 07:59 10/21/23 07:59 10/21/23 07:59 10/21/23 07:59 10/21/23 07:59 10/21/23 07:59 Oxygen Delivery Method Room Air Weight: 187.2 kg Body Mass Index (BMI) 66.6 Intake & Output: Intake and Output for Last 24 Hours 10/19/23 10/20/23 10/21/23 23:59 23:59 23:59 Intake Total 1660.83 / 1660.83 Output Total 200 / 200 Balance 1460.83 / 1460.83 Lab / Micro Data 10/21/23 05:45 10/21/23 05:45 Labs: Laboratory Results - last 24 hr 10/20/23 15:15: WBC 10.8, RBC 5.68 H, Hgb 13.4, Hct 44.0, MCV 77.5 L, MCH 23.6 L, MCHC 30.5 L, RDW Std Deviation 42.6, RDW Coeff of Gregory 15.3 H, Plt Count 160, MPV 10.9, Immature Gran % (Auto) 0.500, Neut % (Auto) 86.7 H, Lymph % (Auto) 4.8 L, [place] % (Auto) 7.4, Eos % (Auto) 0.2, Baso % (Auto) 0.4, Absolute Neuts (auto) 9.4 H, Absolute Lymphs (auto) 0.52 L, Nucleated RBC % 0, Differential Comment SCANNED, Sodium 143, Potassium 4.2, Chloride 108 H, Carbon Dioxide 26.0, Anion Gap 9, BUN 15, Creatinine 1.30 H, Estim Creat Clear Calc 55.47, Est GFR (MDRD) Af Amer 59 L, Est GFR (MDRD) Non-Af 49 L, BUN/Creatinine Ratio 11.5, Glucose 115 H, Lactic Acid 2.6 H*, Calcium 9.9 10/20/23 15:40: Urine Color Yellow, Urine Clarity Sl. Cloudy, Urine pH 8.0, Ur Specific [place] 1.010, Urine Protein 30 H, Urine Glucose (UA) Normal, Urine Ketones Negative, Urine Occult Blood 25 H, Urine Nitrite Negative, Urine Bilirubin Negative, Urine Urobilinogen Normal, Ur Leukocyte Esterase 25 H, Urine RBC 5-10 SEEN, Urine WBC 10-25 SEEN, Ur Squamous Epith Cells 0-5 SEEN, Urine Bacteria RARE, Urine Mucus 0 SEEN 10/20/23 19:50: Lactic Acid 3.5 H* 10/21/23 05:45: WBC 10.6, RBC 5.01, Hgb 11.8 L, Hct 39.0, MCV 77.8 L, MCH 23.6 L, MCHC 30.3 L, RDW Std Deviation 43.4, RDW Coeff of Gregory 15.6 H, Plt Count 124 L, MPV 11.1, Sodium 142, Potassium 3.7, Chloride 111 H, Carbon Dioxide 25.0, Anion Gap 6, BUN 18, Creatinine 1.65 H, Estim Creat Clear Calc 43.70, Est GFR (MDRD) Af Amer 45 L, Est GFR (MDRD) Non-Af 37 L, BUN/Creatinine Ratio 10.9, Glucose 125 H, Lactic Acid 1.1, Calcium 8.9, TSH 0.89 Radiography Diagnostic Testing: Radiology Impression Abdomen/Pelvis CT 10/20/23 15:09 IMPRESSION: Obstruction of the left collecting system due to a 9 mm stone in the proximal ureter. There is left-sided hydronephrosis. There are bilateral nonobstructing calyceal stones. Electronically Signed: Melchor Gonzalez MD at 16:34 EST , Physical Exam Const Constitutional Narrative: Tachypneic but alert. On nonrebreather. HEENT head/scalp atraumatic Resp Resp Narrative: Diminished but clear anteriorly. Cardio Cardio Narrative: Tachycardic and regular. GI GI Narrative: Obese but soft nontender nondistended normal bowel sounds Assessment & Plan Assessment/Plan (1) Lactic acidosis: (2) Ureteral calculus: (3) BMI 60.0-69.9, adult: PLAN: Plan Acute hypoxic respiratory failure Pulse ox dropped down to 79% on room air. Improved with nonrebreather. Will be able to wean oxygen down. Chest x-ray reviewed and appears more consistent with CHF. Will give the patient a dose of IV furosemide. Official read currently pending. No baseline chest x-rays available to be compare to. Patient was receiving 200 cc of IV fluid per hour when she arrived. Will Hep-Lock the IV. Check a D-dimer and if elevated, check a CTA of the chest. Tachycardia Appears to be sinus. Some ST changes but I think this is more rate dependent. Check troponins and 2D echocardiogram. lactic acidosis rising from 2.6 mmol/L present on admission to 3.5 mmol/L, now resolved. Complicating this is that the patient takes metformin which can cause lactic acidosis. Empirically treated with pip/tazo Patient has no signs of sepsis at this time. proximal left ureteral stone UA unremarkable for UTI, though will continue w empiric abx for now. If cx negative, would recommend dc abx. Dr. Simmons to take patient for urgent stent placement and possible lithotripsy in the a.m. Chronic conditions: Morbid obesity; with BMI of 66.6 and weight of 412 pounds at 5 foot 6 inches - Weight loss will be recommended. ANGELES; on CPAP - Resume CPAP as previous. history of insulin resistance; on metformin - Restart metformin when patient is able to tolerate oral intake. Hemoglobin A1c already ordered and pending at this time. History of allergy to trimethoprim-sulfamethoxazole; which causes sores in her mouth - Noted. History of cholecystectomy - Noted. History of total hysterectomy - Noted. DVT prophylaxis - Start SCDs but avoid blood thinners at this time with pending urologic procedure. Transferred to the progressive care unit for closer monitoring. Case discussed with the patient significant other at bedside. Charges/Coding Visit Charges Inpatient E&M: 84032 Subs Hosp L2
[2023-10-21] MEDS: Acetaminophen 325 MG Tablet 650 MG PO ×3 (08:28→22:15)
--- NOTE | 2023-10-21 09:08 | PCM.HP.STD ---
HPI - General General Date of Admission: 10/20/23 Date of Service: 10/21/23 Chief Complaint: Left flank pain HPI Narrative TASIA EDWARDS, is a 38 F who presented to the emergency room yesterday with complaints of uncontrolled left flank pain with nausea. She has a history of stones and has had a stent with lithotripsy in the past. She has been passing multiple small stones recently, and passed a small 1 Wednesday night. On Wednesday night she awoke in the middle of the night with constant left flank pain that continued and worsened. [facility] Medical History CPAP (continuous positive airway pressure) dependence Diabetes Kidney stones Sleep apnea Home Medications calcium carbonate 600 mg calcium (1,500 mg) tablet 600 mg PO DAILY SUPPLEMENT 05/19/18 [History Last Taken 10/19/23] metformin 1,000 mg tablet 1,000 mg PO BIDCM DIABETES 05/19/18 [History Last Taken 10/19/23] magnesium oxide 420 mg tablet 420 mg PO DAILY supplement 10/20/23 [History Last Taken 10/19/23] multivitamin 1 tab PO DAILY health maintenance 10/20/23 [History Last Taken 10/19/23] Allergy/AdvReac Type Severity Reaction Status Date / Time sulfamethoxazole Allergy SORES IN Verified 10/20/23 14:55 [From Julra] MOUTH trimethoprim [From Julra] Allergy SORES IN Verified 10/20/23 14:55 MOUTH Surgical History S/P hysterectomy Social History Smoking Status: Never smoker ROS Cardiovascular Cardiovascular: Reports abdominal pain; Denies chest pain or dyspnea Respiratory/Chest Respiratory/Chest: Denies chest tightness or cough Gastrointestinal Gastrointestinal: Reports nausea; Denies vomiting Genitourinary Genitourinary: Reports abdominal discomfort, flank pain and low back pain; Denies dysuria, hematuria, urinary frequency or urinary urgency Musculoskeletal Musculoskeletal: Reports systems reviewed and no addt'l complaints, except as documented Integumentary Integumentary: Reports systems reviewed and no addt'l complaints, except as documented Neurologic Neurologic: Reports systems reviewed and no addt'l complaints, except as documented Psychiatric Psychiatric: Reports systems reviewed and no addt'l complaints, except as documented Endocrine Endocrinology: Reports systems reviewed and no addt'l complaints, except as documented Hematologic/Lymphatic Hematologic/Lymphatic: Reports systems reviewed and no addt'l complaints, except as documented Allergic/Immunologic Allergic/Immunologic: Reports systems reviewed and no addt'l complaints, except as documented Vital Signs Vital Signs Vital Signs: 10/20/23 14:56 10/20/23 16:26 10/20/23 16:45 Temperature 98 F 98.7 F Temperature Source Temporal Oral Pulse Rate 124 H 113 H 114 H Pulse Strength Respiratory Rate 14 18 18 Respiratory Effort Respiratory Depth Respiratory Pattern Blood Pressure 167/91 H 145/76 H 120/74 Blood Pressure Mean 116 99 89 Blood Pressure Source Blood Pressure Position Blood Pressure Location Pulse Ox 94 94 97 Oxygen Delivery Method Room Air Room Air Room Air 10/20/23 18:12 10/20/23 18:14 10/20/23 21:55 Temperature 99.6 F H 98.8 F Temperature Source Temporal Oral Pulse Rate 111 H 104 H Pulse Strength Respiratory Rate 18 16 Respiratory Effort Normal Respiratory Depth Respiratory Pattern Blood Pressure 146/82 H 139/70 H Blood Pressure Mean 103 93 Blood Pressure Source Monitor Monitor Blood Pressure Position Semi-Fowlers Semi-Fowlers Blood Pressure Location Right Forearm Right Arm Pulse Ox 95 99 Oxygen Delivery Method Room Air Room Air Room Air 10/21/23 05:27 10/21/23 07:59 10/21/23 08:18 Temperature 98.3 F 102.0 F H Temperature Source Temporal Oral Pulse Rate 100 102 H Pulse Strength Normal (2+) Respiratory Rate 16 18 Respiratory Effort Respiratory Depth Respiratory Pattern Blood Pressure 145/80 H 144/88 H Blood Pressure Mean 101 106 Blood Pressure Source Monitor Monitor Blood Pressure Position Semi-Fowlers Semi-Fowlers Blood Pressure Location Right Arm Right Forearm Pulse Ox 99 97 Oxygen Delivery Method CPAP Room Air 10/21/23 08:21 Temperature Temperature Source Pulse Rate Pulse Strength Respiratory Rate Respiratory Effort Normal Non-Labored Respiratory Depth Normal Respiratory Pattern Normal Blood Pressure Blood Pressure Mean Blood Pressure Source Blood Pressure Position Blood Pressure Location Pulse Ox Oxygen Delivery Method Room Air Weight Weight: 187.2 kg Body Mass Index (BMI) 66.6 Physical Exam Const alert, oriented x3 and no apparent distress General Appearance: cooperative, comfortable, well kempt and well developed HEENT normocephalic, head/scalp atraumatic, hearing grossly normal bilaterally, external ears normal and external nose normal Eyes General Eye: normal appearance of both eyes Neck supple General: trachea midline Lymph Lymphatic: no lymphedema noted Chest inspection of chest normal Resp normal respiratory effort, normal air movement and no retractions Cardio Rate: tachycardic GI soft to palpation, non-tender and non-distended Inspection: central obesity and pannus present Back/Spine General Back: CVA tenderness left Skin no rashes or lesions noted, no jaundice, no petechiae and no mottling Neuro oriented x3 and CN's II-XII intact bilaterally Psych mental status grossly normal and thought process normal Results Lab / Micro Data 10/21/23 05:45 10/21/23 05:45 Labs: Laboratory Results - last 24 hr 10/20/23 15:15: WBC 10.8, RBC 5.68 H, Hgb 13.4, Hct 44.0, MCV 77.5 L, MCH 23.6 L, MCHC 30.5 L, RDW Std Deviation 42.6, RDW Coeff of Gregory 15.3 H, Plt Count 160, MPV 10.9, Immature Gran % (Auto) 0.500, Neut % (Auto) 86.7 H, Lymph % (Auto) 4.8 L, [place] % (Auto) 7.4, Eos % (Auto) 0.2, Baso % (Auto) 0.4, Absolute Neuts (auto) 9.4 H, Absolute Lymphs (auto) 0.52 L, Nucleated RBC % 0, Differential Comment SCANNED, Sodium 143, Potassium 4.2, Chloride 108 H, Carbon Dioxide 26.0, Anion Gap 9, BUN 15, Creatinine 1.30 H, Estim Creat Clear Calc 55.47, Est GFR (MDRD) Af Amer 59 L, Est GFR (MDRD) Non-Af 49 L, BUN/Creatinine Ratio 11.5, Glucose 115 H, Lactic Acid 2.6 H*, Calcium 9.9 10/20/23 15:40: Urine Color Yellow, Urine Clarity Sl. Cloudy, Urine pH 8.0, Ur Specific [place] 1.010, Urine Protein 30 H, Urine Glucose (UA) Normal, Urine Ketones Negative, Urine Occult Blood 25 H, Urine Nitrite Negative, Urine Bilirubin Negative, Urine Urobilinogen Normal, Ur Leukocyte Esterase 25 H, Urine RBC 5-10 SEEN, Urine WBC 10-25 SEEN, Ur Squamous Epith Cells 0-5 SEEN, Urine Bacteria RARE, Urine Mucus 0 SEEN 10/20/23 19:50: Lactic Acid 3.5 H* 10/21/23 05:45: WBC 10.6, RBC 5.01, Hgb 11.8 L, Hct 39.0, MCV 77.8 L, MCH 23.6 L, MCHC 30.3 L, RDW Std Deviation 43.4, RDW Coeff of Gregory 15.6 H, Plt Count 124 L, MPV 11.1, Sodium 142, Potassium 3.7, Chloride 111 H, Carbon Dioxide 25.0, Anion Gap 6, BUN 18, Creatinine 1.65 H, Estim Creat Clear Calc 43.70, Est GFR (MDRD) Af Amer 45 L, Est GFR (MDRD) Non-Af 37 L, BUN/Creatinine Ratio 10.9, Glucose 125 H, Lactic Acid 1.1, Calcium 8.9, TSH 0.89 Imagaing Radiology Impression Abdomen/Pelvis CT 10/20/23 15:09 IMPRESSION: Obstruction of the left collecting system due to a 9 mm stone in the proximal ureter. There is left-sided hydronephrosis. There are bilateral nonobstructing calyceal stones. Electronically Signed: Melchor Gonzalez MD at 16:34 EST , Assessment & Plan Assessment/Plan (1) Renal calculus, left: (2) Ureteral calculus: (3) Hydronephrosis: (4) Acute kidney injury: (5) Lactic acidosis: PLAN: Plan antibiotics, supportive care cystoscopy with left ureteral stent insertion, informed consent obtained plan for stone management in few weeks
--- NOTE | 2023-10-21 09:27 | PCM.OPRPT ---
Report of Operation Date of Procedure: 10/21/23 Pre-Operative Diagnosis: Left ureteral and renal stones with hydronephrosis and pyelonephritis Post-Operative Diagnosis: Same Surgery/Procedure Performed:: Cystoscopy with left ureteral stent insertion Surgeon: Kenzie Simmons Type of Anesthesia: MAC Specimen's removed: None Description of Procedure: The patient is a 38-year-old female with metabolic syndrome and a history of stones who presents with obstruction and pyelonephritis secondary to a large proximal left ureteral stone. Informed consent was obtained. The patient was taken the operating room and placed on the operating room table. Anesthesia monitored the head, neck, airway, IV access and vital signs throughout the case. Once anesthesia was appropriate ministered, the patient was placed into dorsolithotomy position was prepped and draped in usual sterile fashion. The cystoscope was inserted through the urethra under direct visualization into the urinary bladder. The left ureteral orifice was observed and intubated with a 0.035 Glidewire. A 6 [place] 24 cm JJ stent was inserted over the wire with good positioning in the renal pelvis as well as the urinary bladder. The bladder was emptied and the cystoscope was removed. The patient was awakened and taken to the recovery room in good condition. There were no complications during this procedure. Grafts/Implants Used: 6 x 24 JJ Complications None Admit VTE Documentation VTE Present on Admission: Yes VTE Mechan Device Prophylaxis: SCD's VTE Pharm Prophylaxis ordered?: No Reason prophylaxis not ordered:: Treatment Not Indicated
[2023-10-21 09:30] LABS: Hemoglobin A1c 5.3 % (3.8-5.6)
[2023-10-21] MEDS: Lactated Ringers 1,000 ML 15 ML IV (10:51)
--- NOTE | 2023-10-21 13:40 | RAD_ITS ---
STUDY: X-RAY CHEST REASON FOR EXAM: Female, 38 years old. Sob TECHNIQUE: Single AP portable view of the chest. COMPARISON: None. FINDINGS: Vascular congestion and CHF. Superimposed atelectasis and/or infiltrate in the right femoral. There is no demonstrated pleural abnormality. Normal size heart. Normal mediastinum and ghulam. Normal visualized pulmonary arteries. Normal visualized aortic arch and descending thoracic aorta. Normal visualized thoracic spine. Normal visualized ribs, clavicles, and shoulders. There is no demonstrated abnormality of the visualized soft tissue structures of the upper abdomen. RAD/Chest 1 View (Portable) IMPRESSION: CHF. Superimposed atelectasis and/or infiltrate in the right lower lobe. Electronically Signed: Jameel Mckinney MD at 14:37 EST ,
[2023-10-21 14:44] LABS: Troponin-I HS 22 pg/mL (3.0-54.0)
--- NOTE | 2023-10-21 15:05 | ECHOD_ITS ---
Reason For Study: TACHYCARDIA Procedure This was a 2D Doppler, Color Flow transthoracic echocardiogram. Exam performed portable in patient room. Left Ventricle Mildly dilated left ventricle. Left ventricular systolic function is normal. The estimated ejection fraction is 55 %. No evidence for diastolic dysfunction. Right Ventricle Normal RV size. Normal systolic function. Atria The left and right atria are normal. Mitral Valve Mild diffuse mitral valve thickening. Trivial mitral valve insufficiency. Tricuspid Valve Normal tricuspid valve. Trivial tricuspid valve insufficiency. Aortic Valve Trisinus/trileaflet aortic valve. Pulmonic Valve Normal pulmonic valve. Great Vessels Normal aortic root. Pericardium/Pleural No pericardial effusion. MMode/2D Measurements & Calculations LVIDd: 6.3 cm IVSd: 0.99 cm Ao root diam: 3.1 cm LVIDs: 4.4 cm LVPWd: 1.0 cm RVDd: 3.8 cm FS: 30.5 % LAV(MOD-bp): 52.1 ml LVAd ap4: 48.0 cm2 SV(MOD-sp4): 112.0 ml LAV(MOD-bp) Indexed: 19.2 ml/m2 LVLd ap4: 9.2 cm LAV(MOD-sp2): 48.3 ml EDV(MOD-sp4): 205.9 ml LAV(MOD-sp4): 48.7 ml EDV(sp4-el): 213.3 ml LVAs ap4: 28.7 cm2 LVLs ap4: 7.7 cm ESV(MOD-sp4): 93.9 ml ESV(sp4-el): 90.7 ml EF(MOD-sp4): 54.4 % EF(sp4-el): 57.5 % SV(sp4-el): 122.6 ml LA A4 area: 19.3 cm2 LA dimension(2D): 3.9 cm RA A4 area: 16.4 cm2 Time Measurements MV dec time: 0.24 sec Doppler Measurements & Calculations MV E max casey: 112.9 cm/sec Lat Peak E' Casey: 12.9 cm/sec Med Peak E' Casey: 9.1 cm/sec MV A max casey: 80.4 cm/sec E/E' lat: 8.7 E/E' med: 12.4 MV E/A: 1.4 Ao V2 max: 168.1 cm/sec LV V1 max: 151.3 cm/sec PA V2 max: 124.7 cm/sec Ao max P.3 mmHg LV V1 max P.2 mmHg ECHO/Echo Complete Interpretation Summary The estimated ejection fraction is 55 %. Mildly dilated left ventricle. No evidence for diastolic dysfunction. Ordering Physician: Maninder Valerio Referring Physician: OMEGA OROZCO Performed By: Kayli Acevedo RDCS
[2023-10-21 15:06] LABS: D-Dimer Quantitative (DVT/PE) 1.32 FEU/ug/m (0.27-0.49)
--- NOTE | 2023-10-21 15:07 | CT_ITS ---
STUDY: CTA CHEST REASON FOR EXAM: Female, 38 years old. respiratory failure RADIATION DOSAGE (If Supplied By Facility): CTDIvol = ( 49.34 ) mGy, DLP = ( 1502.59 ) mGycm TECHNIQUE: The examination was performed with the intravenous administration of IV 100mL Isovue-370. Post-processing of the angiographic images was performed, with multiplanar reformation and 3D reconstruction. Individualized dose optimization techniques were used for this CT. COMPARISON: None. FINDINGS: Exam is limited due to decreased resolution related to large body habitus and breathing artifact. Normal enhancement of the main pulmonary artery and right and left pulmonary arteries. Normal enhancement of the bilateral peripheral pulmonary arteries. There is no demonstrated pulmonary embolism. Normal thoracic aorta and visualized great vessels. There is no demonstrated aortic dissection. Borderline cardiomegaly. Normal mediastinum. Normal hilar regions. Normal visualized trachea and bronchi. The lungs are well expanded. Diffuse multifocal groundglass consolidation more severe through the lower lobes compatible with diffuse multifocal pneumonitis. Mosaic pattern demonstrated which may indicate small airway disease. Normal pleura. Normal chest wall structures. Normal osseous structures. Normal visualized upper abdomen. CT/CTA Chest W/WO Contrast IMPRESSION: Negative CTA chest examination, without a demonstrated pulmonary embolism or arterial dissection. Diffuse multifocal pneumonitis with underlying small airway disease not excluded. Electronically Signed: Vivi Allen MD at 17:26 EST ,
--- NOTE | 2023-10-21 15:13 | CPS ---
Pt has own CPAP of [id number]. Pt will use @HS & prn.
[2023-10-21] MEDS: Furosemide 40 MG/4 ML Vial IV (16:01)
--- NOTE | 2023-10-21 17:33 | PN.URO_ITS ---
Subjective Subjective Patient developed acute onset significant tachycardia and hypoxia requiring nonrebreather. Blood cultures were sent and D-dimer which was elevated. CT of the chest was performed. Currently she is sitting upright in bed, breathing without difficulty on nasal cannula and able to speak in full sentences. She reports that her pain from the stone has essentially resolved. reports that these are the same type of attacks that she had last time she had an infection. Objective Data Objective Data Vital Signs: Vital Signs Temp Pulse Resp BP Pulse Ox O2 Del Method O2 Flow Rate 99.8 F H 111 H 20 H 143/80 H 95 Nasal Cannula 3 10/21/23 16:11 10/21/23 16:11 10/21/23 16:11 10/21/23 16:11 10/21/23 16:11 10/21/23 16:11 10/21/23 16:11 Oxygen Flow Rate (L/min) 3 Oxygen Delivery Method Nasal Cannula Weight: 187.2 kg Body Mass Index (BMI) 66.6 Intake & Output: Intake and Output for Last 24 Hours 10/19/23 10/20/23 10/21/23 23:59 23:59 23:59 Intake Total 2835.08 / 2835.08 Output Total 200 / 200 Balance 2635.08 / 2635.08 Lab / Micro Data 10/21/23 05:45 10/21/23 05:45 Labs: Laboratory Results - last 24 hr 10/20/23 19:50: Lactic Acid 3.5 H* 10/21/23 05:45: WBC 10.6, RBC 5.01, Hgb 11.8 L, Hct 39.0, MCV 77.8 L, MCH 23.6 L , MCHC 30.3 L, RDW Std Deviation 43.4, RDW Coeff of Gregory 15.6 H, Plt Count 124 L, MPV 11.1, Sodium 142, Potassium 3.7, Chloride 111 H, Carbon Dioxide 25.0, Anion Gap 6, BUN 18, Creatinine 1.65 H, Estim Creat Clear Calc 43.70, Est GFR (MDRD) Af Amer 45 L, Est GFR (MDRD) Non-Af 37 L, BUN/Creatinine Ratio 10.9, Glucose 125 H, Hemoglobin A1c 5.3, Lactic Acid 1.1, Calcium 8.9, TSH 0.89 10/21/23 13:59: D-Dimer Quant (PE/DVT) 1.32 H*, Troponin I High Sens 22 Micro: Microbiology 10/20/23 15:40 Urine, Clean Catch Urine Culture - Final Mixed Gram Pos & Gram Neg Org Radiography Diagnostic Testing: Radiology Impression Chest X-Ray 10/21/23 13:40 IMPRESSION: CHF. Superimposed atelectasis and/or infiltrate in the right lower lobe. Electronically Signed: Jameel Mckinney MD at 14:37 EST , Chest CTA 10/21/23 15:07 IMPRESSION: Negative CTA chest examination, without a demonstrated pulmonary embolism or arterial dissection. Diffuse multifocal pneumonitis with underlying small airway disease not excluded. Electronically Signed: Vivi Allen MD at 17:26 EST , Physical Exam Narrative And oriented x 3 in no acute distress On nasal cannula Aspiratory distress at present Tender nondistended Assessment & Plan Assessment/Plan (1) Renal calculus, left: (2) Acute kidney injury: (3) Hydronephrosis: (4) Ureteral calculus: (5) Metabolic syndrome: PLAN: Plan Continue supportive care and antibiotics await culture results, repeat urine culture now that the stent is in place await hospitalist management for pneumonitis, CT negative for PE. Their help is appreciated. continue SCD's
[2023-10-22] VITALS (7 sets, daily range): BP systolic 129–154; BP diastolic 53–96; PULSE 93–98; RESP 12–16; TEMP 37–37.6; O2SAT 92–97
[2023-10-22 04:33] LABS: Absolute Lymphocyte Count 0.91 X10^3/uL (0.83-4.51); Absolute Neutrophil Count 4.8 X10^3/uL (2.0-7.7); Basophil# 0.03 X10^3/uL; Basophil% 0.4 % (0-1); Eosinophil# 0.12 X10^3/uL; Eosinophils% 1.8 % (0-5); Hematocrit 36.9 % (37-47); Lymphocyte # 0.91 X10^3/ul (0.83-4.51); Lymphocyte % 13.3 % (19-41); Mean Corp Hgb Conc 29.8 g/dL (32-36); Mean Corpuscular Hgb 23.3 pg (27.0-32.0); Mean Platelet Vol. 11.7 fl (6.2-12.0); Monocyte# 0.89 X10^3/uL; NRBC Flagged by Analyzer 0 % (0-5); Neutrophil # 4.84 X10^3/uL (2.7-7.7); Neutrophil % 70.8 % (47-70); Platelet Count 109 K/mm3 (150-450); RBC Distribution Width CV 15.8 % (11.6-14.6); RBC Distribution Width SD 44.7 fl (35.1-43.9); Red Blood Count 4.73 M/mm3 (4.2-5.4); White Blood Count 6.8 K/mm3 (4.4-11.0)
[2023-10-22 05:22] LABS: Anion Gap 6 (5-15); BUN 18 mg/dL (7-18); BUN/Creat Ratio 13.5 RATIO (10-20); Calcium,Total 9.4 mg/dL (8.5-10.1); Chloride 111 mmol/L (98-107); Creatinine, Serum 1.33 mg/dL (0.55-1.02); EST Glomerular Filtration Rate 48 mL/min (>60); Est Glom Filt Rate - Afr Amer 58 mL/min (>60); Estimated Creatinine Clearance 54.22 ml/min; Glucose 139 mg/dL (74-106); Potassium 3.1 mmol/L (3.5-5.1); Sodium Level 143 mmol/L (136-145)
[2023-10-22] MEDS: Piperacil/Tazobactam 3.375 GM in 0.9% Normal Saline (50mL MB+) 50 ML IV ×3 (05:57→21:11)
--- NOTE | 2023-10-22 08:18 | PN.HOSP_ITS ---
Subjective Subjective Feeling better. Low grade temps overnight. Since resolved. Weaned off oxygen. Objective Data Objective Data Vital Signs: Vital Signs Temp Pulse Resp BP Pulse Ox O2 Del Method O2 Flow Rate 37.0 C 94 16 129/77 H 93 CPAP 3 10/22/23 06:00 10/22/23 06:00 10/22/23 06:00 10/22/23 06:00 10/22/23 06:00 10/22/23 06:00 10/21/23 16:58 Oxygen Flow Rate (L/min) 3 Oxygen Delivery Method CPAP Weight: 187.2 kg Body Mass Index (BMI) 66.6 Intake & Output: Intake and Output for Last 24 Hours 10/20/23 10/21/23 10/22/23 23:59 23:59 23:59 Intake Total 3315.08 / 3315.08 50 / 50 Output Total 1300 / 2200 900 / 900 Balance 2015.08 / 1115.08 -850 / -850 Lab / Micro Data 10/22/23 03:55 10/22/23 03:55 Labs: Laboratory Results - last 24 hr 10/21/23 05:45: Hemoglobin A1c 5.3 10/21/23 13:59: D-Dimer Quant (PE/DVT) 1.32 H*, Troponin I High Sens 22 10/22/23 03:55: WBC 6.8, RBC 4.73, Hgb 11.0 L, Hct 36.9 L, MCV 78.0 L, MCH 23.3 L, MCHC 29.8 L, RDW Std Deviation 44.7 H, RDW Coeff of Gregory 15.8 H, Plt Count 109 L, MPV 11.7, Immature Gran % (Auto) 0.700, Neut % (Auto) 70.8 H, Lymph % (Auto) 13.3 L, [place] % (Auto) 13.0 H, Eos % (Auto) 1.8, Baso % (Auto) 0.4, Absolute Neuts (auto) 4.8, Absolute Lymphs (auto) 0.91, Nucleated RBC % 0, Sodium 143, Potassium 3.1 L, Chloride 111 H, Carbon Dioxide 26.0, Anion Gap 6, BUN 18, Creatinine 1.33 H, Estim Creat Clear Calc 54.22, Est GFR (MDRD) Af Amer 58 L, Est GFR (MDRD) Non-Af 48 L, BUN/Creatinine Ratio 13.5, Glucose 139 H, Calcium 9.4 Micro: Microbiology 10/20/23 15:40 Urine, Clean Catch Urine Culture - Final Mixed Gram Pos & Gram Neg Org Radiography Diagnostic Testing: Radiology Impression Chest X-Ray 10/21/23 13:40 IMPRESSION: CHF. Superimposed atelectasis and/or infiltrate in the right lower lobe. Electronically Signed: Jameel Mckinney MD at 14:37 EST , Chest CTA 10/21/23 15:07 IMPRESSION: Negative CTA chest examination, without a demonstrated pulmonary embolism or arterial dissection. Diffuse multifocal pneumonitis with underlying small airway disease not excluded. Electronically Signed: Vivi Allen MD at 17:26 EST , Physical Exam Const alert and no apparent distress HEENT head/scalp atraumatic and moist oral mucous membranes Resp normal respiratory effort, no retractions, no use of accessory muscles and clear to auscultation bilaterally Cardio regular rate, regular rhythm, S1 normal heart sound and S2 normal heart sound GI normal to inspection, nondistended, normoactive bowel sounds, soft to palpation, non-tender and non-distended Assessment & Plan Assessment/Plan (1) Lactic acidosis: (2) Ureteral calculus: (3) BMI 60.0-69.9, adult: PLAN: Plan Acute hypoxic respiratory failure * Pulse ox dropped down to 79% on room air. Improved with nonrebreather. Will be able to wean oxygen down. * Chest x-ray reviewed and appears more consistent with CHF. Will give the patient a dose of IV furosemide. Official read currently pending. No [facility] chest x-rays available to be compare to. * Patient was receiving 200 cc of IV fluid per hour when she arrived. Will Hep- Lock the IV. * CTA of the chest showed no pulmonary embolism. Did showed diffuse multifocal pneumonitis with underlying small airway disease. On my read, appears more edematous. Patient x-rays weaned down to room air so I think is more consistent with CHF given the rapid improvement with stopping IV fluids as well as giving furosemide. * Given the rapid improvement with diuresis, seems less likely due to actual pneumonia. Continue with pip-tazo for now. Follow-up on blood cultures. If they remain negative then would transition antibiotics for 3 more days upon discharge. Tachycardia * Appears to be sinus. Likely reactive given the respiratory failure. Has since resolved. * Some ST changes but I think this is more rate dependent. * Check troponins and 2D echocardiogram. lactic acidosis * rising from 2.6 mmol/L present on admission to 3.5 mmol/L, now resolved. Complicating this is that the patient takes metformin which can cause lactic acidosis. * Empirically treated with pip/tazo * Patient has no signs of sepsis at this time. proximal left ureteral stone * UA unremarkable for UTI, though will continue w empiric abx for now. If cx negative, would recommend dc abx. * Patient underwent a cystoscopy with left ureteral stent insertion. * Urine culture pending Chronic conditions: * Morbid obesity; with BMI of 66.6 and weight of 412 pounds at 5 foot 6 inches - Weight loss will be recommended. * ANGELES; on CPAP - Resume CPAP as previous. * history of insulin resistance; on metformin - Restart metformin when patient is able to tolerate oral intake. Hemoglobin A1c already ordered and pending at this time. * History of allergy to trimethoprim-sulfamethoxazole; which causes sores in her mouth - Noted. * History of cholecystectomy - Noted. * History of total hysterectomy - Noted. DVT prophylaxis - Start SCDs but avoid blood thinners at this time with pending urologic procedure. Charges/Coding Visit Charges Inpatient E&M: 27465 Subs Hosp L2
--- NOTE | 2023-10-22 11:15 | CASEMGMT ---
RN AFSANEH Face to Face with patient for initial transition planning/care coordination assessment. RN CM introduced self and role at [facility]. Patient lying in bed, alert and oriented, at bedside. Patient willing to participate in assessment and is able to answer all questions appropriately. Care providers, pharmacy, and demographics verified. Patient wishes to discharge home, denies need for home health at this time. Patient states she has no further needs or concerns at this time. CM to follow for discharge planning needs that may arise. PCP: [facility] Specialists: [facility]; [facility] Preferred Pharmacy: [facility] Retail Insurance: [facility] [place] Prescription Benefit: none Living Will/HPOA: none LNOK: Living Arrangements: Patient lives with in a single story home with no steps to enter. Patient is independent at home. Transportation: driving service DME/HHC: Patient has cpap at home. No previous HHC or SNF Disposition Plan: Patient to discharge home with family support and follow-up plans in place. Zahida SOUTH, RN, CM
[2023-10-22] MEDS: Furosemide 100 MG/10 ML Vial 60 MG IV (17:31)
[2023-10-22] MEDS: 0.9% Saline Lock 10 ML Syringe IV (17:31)
[2023-10-23 05:00] VITALS: BP 151/90; PULSE 86; RESP 16; TEMP 37.2; O2SAT 93
[2023-10-23] MEDS: Piperacil/Tazobactam 3.375 GM in 0.9% Normal Saline (50mL MB+) 50 ML IV (05:21)
[2023-10-23 06:10] LABS: Absolute Lymphocyte Count 1.49 X10^3/uL (0.83-4.51); Absolute Neutrophil Count 4.6 X10^3/uL (2.0-7.7); Basophil# 0.03 X10^3/uL; Basophil% 0.4 % (0-1); Eosinophil# 0.34 X10^3/uL; Eosinophils% 4.6 % (0-5); Hematocrit 38.5 % (37-47); Hemoglobin 11.7 g/dL (12.0-15.0); Lymphocyte # 1.49 X10^3/ul (0.83-4.51); Mean Corp Hgb Conc 30.4 g/dL (32-36); Mean Corpuscular Hgb 23.6 pg (27.0-32.0); Mean Corpuscular Volume 77.8 fL (81-99); Monocyte# 0.96 X10^3/uL; Monocyte% 12.9 % (0-10); NRBC Flagged by Analyzer 0 % (0-5); Neutrophil # 4.55 X10^3/uL (2.7-7.7); Neutrophil % 61.2 % (47-70); Platelet Count 145 K/mm3 (150-450); RBC Distribution Width CV 15.4 % (11.6-14.6); RBC Distribution Width SD 43.2 fl (35.1-43.9); Red Blood Count 4.95 M/mm3 (4.2-5.4); White Blood Count 7.4 K/mm3 (4.4-11.0)
[2023-10-23 06:26] LABS: Anion Gap 5 (5-15); BUN 16 mg/dL (7-18); BUN/Creat Ratio 14.8 RATIO (10-20); Calcium,Total 9.7 mg/dL (8.5-10.1); Chloride 109 mmol/L (98-107); Creatinine, Serum 1.08 mg/dL (0.55-1.02); EST Glomerular Filtration Rate 61 mL/min (>60); Est Glom Filt Rate - Afr Amer 73 mL/min (>60); Estimated Creatinine Clearance 66.77 ml/min; Glucose 105 mg/dL (74-106); Potassium 3.1 mmol/L (3.5-5.1); Sodium Level 142 mmol/L (136-145)
[2023-10-23 07:22] VITALS: O2SAT 93
--- NOTE | 2023-10-23 07:49 | PN.HOSP_ITS ---
Subjective Subjective Breathing well. No events overnight. Objective Data Objective Data Vital Signs: Vital Signs Temp Pulse Resp BP Pulse Ox O2 Del Method O2 Flow Rate 37.2 C 86 16 151/90 H 93 CPAP 3 10/23/23 05:00 10/23/23 05:00 10/23/23 05:00 10/23/23 05:00 10/23/23 05:00 10/23/23 06:27 10/21/23 16:58 Oxygen Flow Rate (L/min) 3 Oxygen Delivery Method CPAP Weight: 187.2 kg Body Mass Index (BMI) 66.6 Intake & Output: Intake and Output for Last 24 Hours 10/21/23 10/22/23 10/23/23 23:59 23:59 23:59 Intake Total 3315.08 / 3315.08 150 / 150 850 / 850 Output Total 1300 / 2200 900 / 900 1000 / 1000 Balance 08 -750 / -750 -150 / -150 Lab / Micro Data 10/23/23 06:01 10/23/23 06:01 Labs: Laboratory Results - last 24 hr 10/23/23 06:01: WBC 7.4, RBC 4.95, Hgb 11.7 L, Hct 38.5, MCV 77.8 L, MCH 23.6 L, MCHC 30.4 L, RDW Std Deviation 43.2, RDW Coeff of Gregory 15.4 H, Plt Count 145 L, MPV 11.0, Immature Gran % (Auto) 0.900, Neut % (Auto) 61.2, Lymph % (Auto) 20.0, [place] % (Auto) 12.9 H, Eos % (Auto) 4.6, Baso % (Auto) 0.4, Absolute Neuts (auto) 4.6, Absolute Lymphs (auto) 1.49, Nucleated RBC % 0, Sodium 142, Potassium 3.1 L , Chloride 109 H, Carbon Dioxide 28.0, Anion Gap 5, BUN 16, Creatinine 1.08 H, Estim Creat Clear Calc 66.77, Est GFR (MDRD) Af Amer 73, Est GFR (MDRD) Non-Af 61, BUN/Creatinine Ratio 14.8, Glucose 105, Calcium 9.7 Micro: Microbiology 10/20/23 15:40 Urine, Clean Catch Urine Culture - Final Mixed Gram Pos & Gram Neg Org Radiography Diagnostic Testing: Radiology Impression Echocardiogram 10/21/23 15:05 Interpretation Summary The estimated ejection fraction is 55 %. Mildly dilated left ventricle. No evidence for diastolic dysfunction. Ordering Physician: Maninder Valerio Referring Physician: OMEGA OROZCO Performed By: Kayli Acevedo RDCS Physical Exam Const alert and no apparent distress Assessment & Plan Assessment/Plan (1) Lactic acidosis: (2) Ureteral calculus: (3) BMI 60.0-69.9, adult: PLAN: Plan Acute hypoxic respiratory failure * Pulse ox dropped down to 79% on room air. Improved with nonrebreather. Will be able to wean oxygen down. * Chest x-ray reviewed and appears more consistent with CHF. Will give the patient a dose of IV furosemide. Official read currently pending. No baseline chest x-rays available to be compare to. * Patient was receiving 200 cc of IV fluid per hour when she arrived. Will Hep- Lock the IV. * CTA of the chest showed no pulmonary embolism. Did showed diffuse multifocal pneumonitis with underlying small airway disease. On my read, appears more edematous. Patient x-rays weaned down to room air so I think is more consis tent with CHF given the rapid improvement with stopping IV fluids as well as giving furosemide. * Given the rapid improvement with diuresis, seems less likely due to actual pneumonia. Continue with pip-tazo for now. Follow-up on blood cultures. If they remain negative then would transition antibiotics for 3 more days upon discharge. * Echo shows an EF 55% with mildly dilated LV. Acute HFpEF * EF 55% * Discontinue furosemide. Tachycardia * Appears to be sinus. Likely reactive given the respiratory failure. Has since resolved. * Some ST changes but I think this is more rate dependent. * Check troponins and 2D echocardiogram. lactic acidosis * Resolved * Patient has no signs of sepsis at this time. * Cx negative. proximal left ureteral stone * UA unremarkable for UTI, though will continue w empiric abx for now. If cx negative, would recommend dc abx. * Patient underwent a cystoscopy with left ureteral stent insertion. * Urine culture pending * Per dw Dr. Simmons on the , she recommended 3 more days of abx if culture is negative. Her office will contact her for follow up appointment. Will dc with ciprofloxacin. Chronic conditions: * Morbid obesity; with BMI of 66.6 and weight of 412 pounds at 5 foot 6 inches - Weight loss will be recommended. * ANGELES; on CPAP - Resume CPAP as previous. * history of insulin resistance; on metformin - Restart metformin when patient is able to tolerate oral intake. Hemoglobin A1c already ordered and pending at this time. * History of allergy to trimethoprim-sulfamethoxazole; which causes sores in her mouth - Noted. * History of cholecystectomy - Noted. * History of total hysterectomy - Noted. DVT prophylaxis - Start SCDs but avoid blood thinners at this time with pending urologic procedure.
[2023-10-23 08:35] VITALS: BP 134/91; PULSE 87; RESP 18; TEMP 36.9; O2SAT 94
[2023-10-23] MEDS: Potassium Chloride Oral Tablet 20 MEQ 60 MEQ PO (08:37)
[2023-10-23 08:39] VITALS: O2SAT 94; O2SAT 95
--- NOTE | 2023-10-23 10:40 | PCM.DC.SUM ---
Providers Date of Admission: 10/21/23 Primary Care Physician: Dr. Omega Malik MD Consultations 10/20/23 21:05 Consult: Hospitalist Routine Consulting Provider: Doctor,Inpatient Reason for Consult: lactic acidosis EMERGENT Consult: No Notified: Yes Date Notified: 10/20/23 Time Notified: 21:05 Method of Notification: Text 10/20/23 21:17 Consult: Hospitalist Routine Consulting Provider: Karl Ashraf Reason for Consult: medical management EMERGENT Consult: No Notified: Yes Date Notified: 10/20/23 Time Notified: 21:17 Method of Notification: Dr Simmons notified MD Reason For Visit: LEFT PROXIMAL URETERAL STONE Diagnosis Discharge Diagnosis (1) Lactic acidosis: Status: Acute Code(s): E87.20 - Acidosis, unspecified (2) Ureteral calculus: Status: Acute Code(s): N20.1 - Calculus of ureter (3) BMI 60.0-69.9, adult: Status: Acute Code(s): Z68.44 - Body mass index [BMI] 60.0-69.9, adult Plan Acute hypoxic respiratory failure Pulse ox dropped down to 79% on room air. Improved with nonrebreather. Will be able to wean oxygen down. Chest x-ray reviewed and appears more consistent with CHF. Will give the patient a dose of IV furosemide. Official read currently pending. No baseline chest x-rays available to be compare to. Patient was receiving 200 cc of IV fluid per hour when she arrived. Will Hep-Lock the IV. CTA of the chest showed no pulmonary embolism. Did showed diffuse multifocal pneumonitis with underlying small airway disease. On my read, appears more edematous. Patient x-rays weaned down to room air so I think is more consistent with CHF given the rapid improvement with stopping IV fluids as well as giving furosemide. Given the rapid improvement with diuresis, seems less likely due to actual pneumonia. Continue with pip-tazo for now. Follow-up on blood cultures. If they remain negative then would transition antibiotics for 3 more days upon discharge. Echo shows an EF 55% with mildly dilated LV. Acute HFpEF EF 55% Discontinue furosemide. Tachycardia Appears to be sinus. Likely reactive given the respiratory failure. Has since resolved. Some ST changes but I think this is more rate dependent. Check troponins and 2D echocardiogram. lactic acidosis Resolved Patient has no signs of sepsis at this time. Cx negative. proximal left ureteral stone UA unremarkable for UTI, though will continue w empiric abx for now. If cx negative, would recommend dc abx. Patient underwent a cystoscopy with left ureteral stent insertion. Urine culture pending Per dw Dr. Simmons on the , she recommended 3 more days of abx if culture is negative. Her office will contact her for follow up appointment. Will dc with ciprofloxacin. Chronic conditions: Morbid obesity; with BMI of 66.6 and weight of 412 pounds at 5 foot 6 inches - Weight loss will be recommended. ANGELES; on CPAP - Resume CPAP as previous. history of insulin resistance; on metformin - Restart metformin when patient is able to tolerate oral intake. Hemoglobin A1c already ordered and pending at this time. History of allergy to trimethoprim-sulfamethoxazole; which causes sores in her mouth - Noted. History of cholecystectomy - Noted. History of total hysterectomy - Noted. DVT prophylaxis - Start SCDs but avoid blood thinners at this time with pending urologic procedure. Medications at Discharge Home Medications calcium carbonate 600 mg calcium (1,500 mg) tablet 600 mg PO DAILY SUPPLEMENT 05/19/18 metformin 1,000 mg tablet 1,000 mg PO BIDCM DIABETES 05/19/18 magnesium oxide 420 mg tablet 420 mg PO DAILY supplement 10/20/23 multivitamin 1 tab PO DAILY health maintenance 10/20/23 acetaminophen 325 mg tablet 1,000 mg (3.0769 x 325 mg) PO Q8H PRN Pain 1-10 Or Fever #0 tabs 10/23/23 ciprofloxacin HCl 500 mg tablet (Cipro) 500 mg PO BID #6 tabs 10/23/23 Hospital Course Procedures - (cystoscopy. ) Summary of Care Provided Minutes Spent on Discharge: 32 Hospital Course: Patient presented left flank pain. Patient was found to have a 9 mm stone on the proximal ureter on the left with a left-sided hydronephrosis. Patient was started on IV fluids. Patient underwent cystoscopy with left ureteral stent insertion. After surgery, patient became very short of breath and was hypoxic and tachycardic. Chest x-ray looks more like CHF as patient was receiving 200 cc of IV fluid prior to the procedure. Fluids were stopped and patient did receive Lasix. Patient transferred to PCU. CT of the chest did not show any pulmonary embolism. Patient overall responded very well with furosemide. Echocardiogram showed EF of 55%. Patient will continue to be on antibiotics or cultures are negative. Patient will follow-up with urology as outpatient Weight / BMI Weight Weight: 187.2 kg Body Mass Index (BMI) 66.6 ABG / Lab / Microbiology Data 10/23/23 06:01 10/23/23 06:01 Laboratory: Laboratory Results - last 24 hr 10/23/23 06:01: WBC 7.4, RBC 4.95, Hgb 11.7 L, Hct 38.5, MCV 77.8 L, MCH 23.6 L, MCHC 30.4 L, RDW Std Deviation 43.2, RDW Coeff of Gregory 15.4 H, Plt Count 145 L, MPV 11.0, Immature Gran % (Auto) 0.900, Neut % (Auto) 61.2, Lymph % (Auto) 20.0, [place] % (Auto) 12.9 H, Eos % (Auto) 4.6, Baso % (Auto) 0.4, Absolute Neuts (auto) 4.6, Absolute Lymphs (auto) 1.49, Nucleated RBC % 0, Sodium 142, Potassium 3.1 L, Chloride 109 H, Carbon Dioxide 28.0, Anion Gap 5, BUN 16, Creatinine 1.08 H, Estim Creat Clear Calc 66.77, Est GFR (MDRD) Af Amer 73, Est GFR (MDRD) Non-Af 61, BUN/Creatinine Ratio 14.8, Glucose 105, Calcium 9.7 Microbiology: Microbiology 10/20/23 15:40 Urine, Clean Catch Urine Culture - Final Mixed Gram Pos & Gram Neg Org Radiography Diagnostic Testing: Radiology Impression Echocardiogram 10/21/23 15:05 Interpretation Summary The estimated ejection fraction is 55 %. Mildly dilated left ventricle. No evidence for diastolic dysfunction. Ordering Physician: Maninder Valerio Referring Physician: OMEGA OROZCO Performed By: Kayli Acevedo RDCS D/C Instructions Discharge Diet: No restrictions Meaningful Use Info Meaningful Use Diagnoses (Choose all that apply): None applicable Discharge Plan Admission Admit Date/Time: 10/21/23 16:06 Primary Reason for Your Visit: ureteral stone. Attending Provider: Maninder Valerio Primary Care Provider: Omega Malik Consulting Providers: Doctor,Inpatient; Karl Ashraf Instructions Additional Instructions / Restrictions: Follow up Dr. Simmons. The office will contact you. Discharge Orders/Prescriptions Prescriptions: New acetaminophen 325 mg Tablet 1,000 mg PO Q8H PRN (Reason: Pain 1-10 Or Fever) Qty: 0 0RF ciprofloxacin HCl [Cipro] 500 mg tablet 500 mg PO BID Qty: 6 0RF Continued calcium carbonate 600 MG tablet 600 mg PO DAILY multivitamin Tablet 1 tab PO DAILY magnesium oxide 420 mg tablet 420 mg PO DAILY Held metformin 1,000 MG tablet 1,000 mg PO BIDCM Hold Instructions: Resume on 10/26/23. Referrals / Follow Up: Omega Malik MD [Primary Care Provider] - Within 2 Weeks Disposition Disposition (needs filled in before D/C Order can be placed): Home, Self Care Charges/Coding Visit Charges Inpatient E&M: 27456 Disch Hosp >30min
== END 2023-10-23 12:33 | disposition home or self-care (01) | DRG 659 ==
LOC: ED 15:13 → MS3 19:43 → PCU 10-21 15:04
PROVIDERS: Anesthesiology; Internal Medicine; Urology; Emergency Provider Emergency Medicine; PCP Family Medicine
PROC: 0T778DZ Dilation of Left Ureter with Intraluminal Device, Via Natural or Artificial Opening Endoscopic (ICD-10-PCS; CPT 52332; principal; 2023-10-21 11:20)
DX: N13.6 Pyonephrosis (principal); J96.01 Acute respiratory failure with hypoxia; I50.31 Acute diastolic (congestive) heart failure; Z68.44 Body mass index [BMI] 60.0-69.9, adult; E87.20 Acidosis, unspecified; N17.9 Acute kidney failure, unspecified; E11.9 Type 2 diabetes mellitus without complications; E66.01 Morbid (severe) obesity due to excess calories; G47.33 Obstructive sleep apnea (adult) (pediatric); E86.0 Dehydration; E88.810 Metabolic syndrome; Z79.84 Long term (current) use of oral hypoglycemic drugs; Z79.899 Other long term (current) drug therapy; R00.0 Tachycardia, unspecified
CPT/HCPCS: 36415; 71045; 71275; 74176; 80048; 81001; 83036; 83605; 84443; 84484; 85025; 85027; 85379; 87040; 87086; 87088; 93005; 93306; 94668; 94762; 99252; 99283; J7030; J7050; J7120; Q9967; A4216; C2617; G0463; J1940; J2405

== ENCOUNTER → 2023-12-02 | Outpatient (CLI) | payer OTHER, SELFPAY | END | disposition home or self-care (01) | PROVIDERS: PCP Family Medicine; Referring Provider Urology; Visit Provider Urology | DX: N20.1 Calculus of ureter (principal); N13.30 Unspecified hydronephrosis; R10.9 Unspecified abdominal pain; R39.0 Extravasation of urine | CPT/HCPCS: 87086; 87088 ==

== ENCOUNTER 2023-12-09 05:58 | Day surgery (SDC) | payer SELFPAY, OTHER ==
[2023-12-09] VITALS (8 sets, daily range): BP systolic 131–169; BP diastolic 78–101; PULSE 86–98; RESP 16–20; TEMP 36.3–36.7; O2SAT 94–100; BMI 65.8
--- OUTSIDE RECORDS SUMMARY | 2023-12-09 06:21 | XMS RPT_ITS | CCD ---
Author Name Unknown Address [id number] [place] [address] Organization [facility] Care Team Providers Care Dance Therapist Name Role Phone Amaury Ocampo Unavailable Unavailable PROVIDER, UNKNOWN Unavailable Unavailable Jaquez, Stacy Unavailable Unavailable Amaury Ocampo Unavailable Unavailable PROVIDER, UNKNOWN Unavailable Unavailable Jaquez, Stacy Unavailable Unavailable Terrence Amaury Unavailable Unavailable PROVIDER, UNKNOWN Unavailable Unavailable Jaquez, Stacy Unavailable Unavailable NAE BILLINGSLEY DO Admitting Unavailable NAE BILLINGSLEY DO Primary Care Unavailable NAE BILLINGSLEY DO Attending Unavailable JAQUEZ, OMEGA T Consulting Unavailable JAQUEZ, OMEGA T Referring Unavailable PROVIDER, UNKNOWN Consulting Unavailable PROVIDER, UNKNOWN Consulting Unavailable PROVIDER, UNKNOWN Consulting Unavailable RAND SCHREIBER Admitting Unavailable SCHREIBER, RAND SUMMER Primary Care Unavailable JITENDRA SCHREIBERON ALONZO Attending Unavailable JAQUEZ, OMEGA T Consulting Unavailable PROVIDER, UNKNOWN Consulting Unavailable PROVIDER, UNKNOWN Consulting Unavailable PROVIDER, UNKNOWN Consulting Unavailable VENU MCDANIELS Admitting Unavailable VENU MCDANIELS Primary Care Unavailable VENU MCDANIELS Attending Unavailable JAQUEZ, OMEGA T Consulting Unavailable PROVIDER, UNKNOWN Consulting Unavailable PROVIDER, UNKNOWN Consulting Unavailable PROVIDER, UNKNOWN Consulting Unavailable CRISTIAN WILEY Attending Dara vailable NAE BILLINGSLEY Referring Unavailable HUNTER LLAMAS Admitting Unavailable BAKARI VELÁZQUEZ Consulting Unavailable ISMAEL LOFTON Attending Unavailable BAKARI VELÁZQUEZ Admitting Unavailable GHULAMBAKARI Attending Unavailable JAQUEZ, OMEGA T Primary Care Unavailable JAQUEZ, OMEGA T Primary Care Unavailable BAKARI VELÁZQUEZ Referring Unavailable GHULAMBAKARI Attending Unavailable JAQUEZ, OMEGA T Primary Care Unavailable JAQUEZ, OMEGA T Primary Care Unavailable JAQUEZ, OMEGA T Primary Care Unavailable JYOTI CRUZ Admitting Unavailabl KHANG Driscoll Attending Unavailable BAKARI VELÁZQUEZ Consulting Unavailable CRISTIAN MCKEON Unavailable STACY JAQUEZ MD Unavailable Angela Maldonado RN Unavailable Unavailable ARNOLDO POOL MD Unavailable Kaleb MAJOR MD Unavailable Vitor CHOI MD Unavailable ALEXANDRO WYLIE Unavailable Unavailable Geraldine Trejo Unavailable Unavailable Bryon Berger Unavailable Unavailable Bon SEGURA, Shania Unavailable Unavailable Unavailable Unavailable Allergies Allergy Classification Reported Allergen(s) Allergy Type Date of Onset Reaction(s) Facility (1 source) Sulfamethoxazole / Trimethoprim Drug Allergy [facility] Repository (1 source) Iodine; Translations: [IODINE] Drug Allergy 3 [facility] Repository (1 source) Sulfamethoxazole; Translations: [SULFAMETHOXAZOLE] Drug Allergy 8 [facility] Repository (1 source) Sulfamethoxazole / Trimethoprim; Translations: [SULFAMETHOXAZOLE-TR IMETHOPRIM] Drug Allergy 3 [facility] Repository (1 source) Trimethoprim; Translations: [TRIMETHOPRIM] Drug Allergy 8 [facility] Repository (1 source) Sulfacetamide Drug Allergy [facility], [facility].; [facility]. (1 source) Sulfamethoxazole / Trimethoprim Drug Allergy [facility]. Medications Current Medications Medication Drug Class(es) Dates Sig (Normalized) Sig (Original) metFORMIN hydrochloride 1000 mg oral tablet (1 source) Biguanide take 1 tablet by jose twice daily METFORMIN HCL, 1000MG (Oral Tablet) ; 1 Two times daily (1000 MG) Completed/Discontinued Medications Medication Drug Class(es) Dates Sig (Normalized) Sig (Original) [id number] 200 actuat albuterol 0.09 mg/actuat metered dose inhaler (1 source) beta2-Adrenergic Agonist Start: 03-27-2014 End: 04-06-2014 take 2 puff(s) by inhalation every six hours for wheezing PROAIR HFA, 108 (90 Base)MCG/ACT (Inhalation Aerosol Solution) ; 2 (two) puffs puffs q 6 hours for wheezing and shortness of breath for 10 days Quantity: 1 {Inhaler} Refills: 0 Ordered: 15-May-2014 Start: 27-Mar-2014 End: 06-Apr-2014 Status: Inactive amoxicillin 500 mg oral capsule (1 source) Penicillin-class Antibacterial Start: 11-20-2016 End: 02-19-2023 amoxicillin 500 mg capsule ; 1 (one) Capsule three times daily for 0 days Quantity: 42 {Capsule} Refills: 0 Ordered: 19-Feb-2023 COLTON Ordoñez Start: 20-Nov-2016 End: 19-Feb-2023 Status: Inactive Comments: medication to be dispensed in office Problems Active Problems Problem Classification Problem Date Documented Date Episodic/Chronic Administrative/social admission (2 sources) Issue of repeat prescriptions 11-18-2010 Episodic Allergic reactions (2 sources) Allergy status to other antibiotic agents status; Translations: [Allergy status to other antibiotic agents status] Onset: 06-21-2018 Episodic Calculus of urinary tract (2 sources) Calculus of kidney; Translations: [Calculus of ureter] Onset: 03-24-2023 Episodic Cancer of uterus (3 sources) Malignant neoplasm of endometrium; Translations: [Endometrial carcinoma] Onset: 05-01-2018 06-09-2018 Chronic Past or Other Problems Problem Classification Problem Date Documented Date Episodic/Chronic Abdominal pain (1 source) Flank pain Onset: 02-23-2023 Episodic Pneumonia (except that caused by tuberculosis or sexually transmitted disease) (1 source) Pneumonia (except that caused by tuberculosis or sexually transmitted disease) 03-28-2014 Unclassified (1 source) Fever - The onset of the fever has been acute and they have been occurring in an intermittent pattern for 2 weeks. The patient has had a temperature of up to 102 F. There has been associated cough (slight) and dysuria (slight), while there has been no chest pain, diarrhea, dyspnea or sore throat. Note for Fever : pt has had pneumonia in the past. Concerned about possible kidney stones, but never had one. Pt took ibuprofen that helped the fever. Pt had hysterectomy. 02-19-2023 Unclassified (1 source) !Patient notification of lab results - Dr. Jaquez. The test(s) that you had done were/was a sleep study. Your tests showed the following abnormalities: sleep apnea which is best treated with CPAP set at 15 cm H2O . You should call our office for a new prescription. 01-30-2019 Unclassified (1 source) cough - The onset of the cough has been acute and has been occurring for 2 weeks. There has been no associated fever, runny nose or sore throat. Note for cough : Pt said she does have a lot of sinus pressure and the cough is worse at night.. 08-20-2016 Unclassified (1 source) !Patient notification of lab results 1 - [facility]. The test(s) that you had done were/was blood work (You were mildly anemic (low blood count) and this was due to a low iron count. I would recommend that you get over the counter iron (325 mg Ferrous sulfate) and take 1 pill twice a day for the next month. Then you should have repeat blood tests.Also, the protein level on your blood test was elevated. This is actually a test which combines the amount of a number of individual protein levels to give the total level which we tested. Sometimes the total is elevated because several individual proteins are in the high normal range. In other cases, it is because a single protein is elevated and thus driving up the total. There is an additional blood test called a serum protein electrophoresis that must be run at this time which helps identify these individual protein levels. We can do this test at the same time as the other is repeated in a month). You should call our office if you have any questions. Please continue your current medication/therapy, follow up as scheduled and let us know if your symptoms do not improve. 03-29-2014 Unclassified (1 source) !Patient notification of lab results 1 - [facility]. The test(s) that you had done were/was an iron, TIBC, B12 and folate. Your tests showed the following abnormalities: low iron . Please adjust your therapy by adding Ferrous sulfate 325 mg 3x/day and rech iron/TIBC in 1 month. 03-29-2014 Unclassified (1 source) cough - The onset of the cough has been acute and has been occurring in a persistent pattern for 6 days. The cough is characterized as productive of mucoid sputum. The symptoms have been associated with fever and headache. Note for cough : pt also c/o burning with urination. See urine results. Here for exam. 03-27-2014 Unclassified (1 source) recheck - other illness (WARTS ON HANDS. CRYO I MONTH AGO.). 01-12-2011 Unclassified (1 source) Warts.. - The lesions are located on the left hand (3RD DIGIT) and right hand (THUMB AND 3RD DIGIT). The patient describes this as worsening. 12-01-2010 Unclassified (1 source) Skin lesion - Note for Skin lesion : On the righ thumb. 11-04-2010 Unclassified (1 source) [ADDITIONAL REASON] Sore throat - Note for Sore throat : Has been occuring for a few days. No cough. 11-04-2010 Results Test Name Value Interpretation Reference Range Facil ity Vital Signs Date Time Vital Sign Value Performing Clinician Marva lockwood 02-19-2023 09:28-0400 Body height 165.1 cm [facility]. 02-19-2023 09:28-0400 Body mass index (BMI) [Ratio] 67.33 kg/m2 Brii Ordo[facility], [facility]. 02-19-2023 09:28-0400 Body surface area Derived from formula 2.67 m2 Brii Ordoñez [facility].; [facility], [facility]. 02-19-2023 09:28-0400 Body temperature 98.8 [degF] Brii [facility]doñ[facility] RN [facility]. Encounters Encounter Date Encounter Type Care Provider Facility Start: 05-26-2023 Evaluation and management of inpatient OMEGA T GISELE Facility:[id number] Start: 04-29-2023 ambulatory OMEGA JAQUEZ Facility :[id number] Start: 04-08-2023 End: 04-08-2023 ambulatory BAKARI VELÁZQUEZ Facility:[id number] Start: 03-24-2023 End: 03-24-2023 ambulatory BAKARI VELÁZQUEZ Facility:[id number] Start: 02-23-2023 End: 02-25-2023 Evaluation and management of inpatient NAE BILLINGSLEY Facility:[id number] Start: 02-23-2023 End: 02-23-2023 Emergency department patient visit NAE BILLINGSLEY Facility:[id number] Start: 02-22-2023 End: 02-23-2023 Emergency department patient visit NAE RIVERA [facility] Start: 02-22-2023 ambulatory RAND ROSADO SCHREIBER [facility] Start: 02-22-2023 End: 02-22-2023 Medication Refill/Order CRISTIAN TAYLOR SHOP GIRL-C Work Phone: [facility] [employer] Start: 02-19-2023 End: 02-24-2023 ambulatory CRISTIAN TAYLOR IMAGING SPECIALIST-CLINICAL LABORATORY TECHNOLOGIST Facility:A Start: 02-19-2023 End: 02-19-2023 Office outpatient visit 10 minutes CRISTIAN TAYLOR SHOP GIRL-C Work Phone: [employer] Start: 11-27-2022 End: 11-27-2022 ambulatory VENU Magallanes AMYJANINE [facility] Start: 01-30-2019 End: 01-30-2019 Historical Summary CRISTIAN TAYLOR SHOP GIRL-C Work Phone: [employer] Start: 10-27-2018 End: 10-27-2018 Historical Summary CRISTIAN TAYLOR SHOP GIRL-C Work Phone: [employer] Start: 07-13-2018 End: 07-13-2018 Historical Summary CRISTIAN TAYLOR SHOP GIRL-C Work Phone: [employer] Start: 06-21-2018 Patient encounter Amaury Ocampo [facility] Start: 06-14-2018 Patient encounter Amaury Ocampo [facility] Start: 06-09-2018 End: 06-09-2018 Historical Summary CRISTIAN TAYLOR SHOP GIRL-C Work Phone: [employer] Start: 06-01-2018 End: 06-01-2018 Historical Summary CRISTIAN TAYLOR SHOP GIRL-C Work Phone: [place] [employer] Start: 06-01-2018 Patient encounter Amaury Ocampo [facility] Start: 11-20-2016 End: 11-20-2016 Office outpatient visit 10 minutes CRISTIAN TAYLOR SHOP GIRL-C Work Phone: [place] [employer] [facility] [employer] Start: 08-20-2016 End: 08-20-2016 Office outpatient visit 10 minutes CRISTIAN TAYLOR SHOP GIRL-C Work Phone: [employer] Start: 11-20-2015 End: 11-20-2015 Lab Only CRISTIAN TAYLOR SHOP GIRL-C Work Phone: [employer] Start: 03-29-2014 End: 03-29-2014 Follow-up encounter CRISTIAN TAYLOR SHOP GIRL-C Work Phone: [facility] [employer] Start: 03-29-2014 End: 03-29-2014 Results Review CRISTIAN TAYLOR SHOP GIRL-C Work Phone: [facility] [employer] Start: 03-28-2014 End: 03-28-2014 Patient encounter procedure CRISTIAN TAYLOR SHOP GIRL-C Work Phone: [place] [facility] [facility] [employer] Start: 03-27-2014 End: 03-27-2014 Patient encounter procedure CRISTIAN MELENDEZER SHOP GIRL-C Work Phone: [place] [facility] [facility] [employer] Start: 03-27-2014 End: 03-27-2014 Patient encounter procedure CRISTIAN MELENDEZER SHOP GIRL-C Work Phone: [employer] Start: 10-18-2013 End: 10-18-2013 Results Review CRISTIAN MELENDEZER SHOP GIRL-C Work Phone: [facility] Start: 09-01-2013 End: 09-01-2013 Results Review CRISTIAN TAYLOR SHOP GIRL-C Work Phone: [facility] Start: 12-30-2012 End: 12-30-2012 Results Review CRISTIAN TAYLOR SHOP GIRL-C [facility] Start: 05-21-2011 End: 05-21-2011 Annotation/Addendum CRISTIAN TAYLOR SHOP GIRL-C Work [facility]: [facility] Start: 05-20-2011 End: 05-20-2011 Annotation/Addendum CRISTIAN TAYLOR SHOP GIRL-C Work Phone: [facility] Start: 01-12-2011 End: 01-12-2011 Patient encounter procedure CRISTIAN TAYLOR SHOP GIRL-C Work [facility]: [facility] Start: 01-07-2011 End: 01-07-2011 Historical Summary CRISTIAN TAYLOR SHOP GIRL-C Work Phone: [facility] Start: 12-01-2010 End: 12-01-2010 Patient encounter procedure CRISTIAN TAYLOR SHOP GIRL-C Work Phone: [facility] Start: 11-18-2010 End: 11-18-2010 Medication Refill/Order CRISTIAN TAYLOR SHOP GIRL-C Work Phone: [facility] Start: 11-17-2010 End: 11-17-2010 Medication Refill/Order CRISTIAN MELENDEZER SHOP GIRL-C Work Phone: [facility] Start: 11-04-2010 End: 11-04-2010 Patient encounter procedure CRISTIAN TAYLOR SHOP GIRL-C Work Phone: [facility] [employer] Start: 11-04-2010 End: 11-04-2010 Historical Summary CRISTIAN TAYLOR SHOP GIRL-C Work Phone: [facility] [employer] Procedures Date Procedure Procedure Detail Performing Clinician Start: 02-23-2023 Urinalysis NAE PETERSON Plan of Treatment Date Care Activity Detail Author Start: 11-20-2016 Patient Education SINUSITIS Indication: Acute sinusitis, recurrence not specified, unspecified location Start: 20-Nov-2016 Instruction Type: Patient Education [employer]; [employer] Start: 08-20-2016 Patient Education Pneumonia *: coughing Indication: Atypical pneumonia Start: 20-Aug-2016 Instruction Type: Patient Education [employer]; [employer] Start: 04-29-2014 Immunoelectrophoresis serum SERUM ELECTROPHORESIS (42632) Start: 29-Apr-2014 21:15 Request [employer]; [facility] [employer] Start: 04-29-2014 Assay of iron IRON (35052) Start: 29-Apr-2014 21:15 Request [employer] [place]; [employer] [facility] [employer] Start: 04-29-2014 Blood count complete auto&auto difrntl wbc CBC, PLATELETS & AUT DIFF ([id number]) Start: 29-Apr-2014 21:15 Request [employer] [place]; [employer] [facility] [employer] Start: 03-27-2014 Chest x-ray X-RAY CHEST- TWO VIEWS - AP/LL ([id number]) Start: 27-Mar-2014 Intent Comments: Please call result to [place] office [phone] this afternoon (or cell Dr. Bryan [phone]) [employer]; [place] [employer] [facility] [employer] Payers Date Payer Category Payer Unknown [id number] 2022 Unknown 60 1985 Unknown [id number] 1985 Unknown [id number] 1985 Unknown [id number] Unknown Social History Date Type Detail Facility Alcohol Use: Alcohol Use: ; N o Alcohol Use. [facility]; [facility] Current Work/Study Status Current Work/St udy Status [facility]; [facility] Tobacco use: Tobacco use: ; N ever smoker. [facility]; [facility] Work Phone: Never smoked tobacco [facility]; [facility] Work Phone: Clinical Notes 02-24-2023 to 05-27-2023 Note Date & Type Note Facility 05-27-2023 Note HNO ID: [id number] Author: Artis Paredes MD Service: General Internal Medicine Author Type: Physician Type: Progress Notes Filed: 05/27/2023 2:14 PM Note Text: DEPARTMENT OF HOSPITAL MEDICINE PROGRESS NOTE SERVICE DATE: 05/27/2023 SERVICE TIME: 2:08 PM Hospital Medicine/Primary Attending: Artis Paredes MD Subjective INTERVAL HPI: Patient seen and examined. She did spike a fever over night. Was given PM tylenol. She is complaining of pain in the right leg. MEDICATIONS: Reviewed Objective PHYSICAL EXAM: BP 138/63 Pulse 103 Temp (Src) 98.8 (Axillary) Resp 20 Ht 5' 6 (1.68m) Wt 420 lb (190.5kg) SpO2 94% BMI 67.82 kg/(m2). O2 Therapy: (BIPAP) Physical Exam Performed GENERAL: Alert, no distress, cooperative SKIN: Skin color, texture, turgor normal. No rashes or lesions. NOSE: Nares normal. Septum midline. NECK: No jugulovenous distention, No carotid bruits, Carotid pulse normal contour, Supple LUNGS: Lungs clear to auscultation, Good diaphragmatic excursion CARDIAC: Normal S1 and S2; no rubs, murmurs, or gallops ABDOMEN: Abdomen soft, non-tender, BS normal, No masses or organomegaly EXTREMITIES: Extremities normal, no deformities, edema, clubbing or skin discoloration. Good capillary refill., No ulcers Lines, Drains, and Airways Line Duration Peripheral 05/26/[address] [facility] Left Antecubital 20 Gauge 1 day DATA: Diagnostic tests reviewed for today's visit: Most recent labs and imaging results. Assessment/Plan Principal Problem: Sepsis (HCC) (POA: Yes) Assessment AND Plan: Continue with IV antibiotics. Will obtain follow up AM labs. CT pending. Morbid obesity BMI 65.37 Patient is currently on cardiac low carb diet Resolved Problems: * No resolved hospital problems. * Medication and Non-Pharmacologic VTE Prophylaxis/Anticoagulants Anticoagulant AND Antiplatelet Medications (From admission, onward) Start Dose Route Frequency Last Action Ordered Stop 05/26/23 1330 heparin 5,000 Units injection (Medical Risk Categories) 5,000 Units SUBCUTANEOUS EVERY 12 HOURS Given, 05/27 0851 05/26/23 1308 -- 05/26/23 1300 activity - mobilize patient (md,ca) VTE Prophylaxis: VTE prophylaxis appropriate Disposition: To be determined Plan of care discussed with: Provider, RN, Patient SIGNATURE: Artis Paredes MD PATIENT NAME: Lorna Wylie DATE: May 27, 2023 TIME: 2:08 PM etx [id number] [facility] 05-26-2023 Note HNO ID: [id number] Author: Bertin Delgado RPh Service: ? Author Type: Pharmacist Type: Plan of Care Filed: 05/26/2023 12:46 PM Note Text: PHARMACY MEDICATION REVIEW Patient Name: Lorna Wylie : 1985 The below information represents the best possible medication history: Yes Medication history completed by: ED Pharmacist Bertin Delgado RPh Source of history: Patient: Reliability of source: Appears reliable, clearly identified: Medication name, Medication dose, Medication route, Medication frequency, Timing of last dose, and Indications and Pharmacy records: Tammy Medication nonadherence identified: No barriers noted Preferred outpatient pharmacy: e- [facility] [address] [place] [address] - [address] - [phone] [address] [facility] Allergies: Sulfamethoxazole-Tr* Hives, Unknown Iodine Rash Sulfamethoxazole Unknown Trimethoprim Unknown Prior to Admission Medications Prescriptions Last Dose Informant Patient Reported? Taking? metFORMIN (GLUCOPHAGE) 1,000 mg tablet 05/25/2023 Yes Yes Sig: Take 1,000 mg by mouth twice daily with meals. Prediabetic potassium citrate ER (UROCIT-K) 10 mEq (1,080 mg) 05/25/2023 Yes Yes Sig: Take 540 mg by mouth three times daily. Facility-Administered Medications: None Bertin Delgado RPh 05/26/2023 [facility] 04-29-2023 Note HNO ID: [id number] Author: RT Salvador(R) Service: Radiology Author Type: Technologist Type: Progress Notes Filed: 04/29/2023 12:06 PM Note Text: ------ Summary: DEE ------ Radiology Service Progress Note PATIENT NAME: Lorna Wylie DATE OF SERVICE: April 29, 2023 TIME: 12:06 PM PATIENT IDENTITY VERIFICATION COMPLETED USING TWO (2) IDENTIFIERS: Name and Date of confirmed by patient verbally. FALL SCREENING: Has the patient had 2 falls in the last year or 1 fall with injury or currently using an Ambulatory Assistive Device (Walker, Cane, Wheelchair, Crutches, etc.)? No PATIENT GENDER DATA: Female. status: : No status: NO. PATIENT RELEVANT IMPLANT DATA REVIEWED: Not Applicable RADIOLOGY DEPARTMENT: General X-ray: Exam(s) Completed: Abdomen X-Ray: Abdomen PERIPHERAL IV DATA: Not applicable SIGNED BY: RT Salvador(R) April 29, 2023 12:06 PM [facility] 04-28-2023 Note HNO ID: [id number] Author: Karen Mcdonald RN Service: Nursing Author Type: Registered Nurse Type: Progress Notes Filed: 04/28/2023 4:31 PM Note Text: PRE-PROCEDURE INSTRUCTIONS TO PREPARE FOR YOUR PROCEDURE: Your arrival time for your procedure is 1145. Do NOT eat any solid foods after MIDNIGHT the night prior to your procedure - this includes gum or mints. You can drink clear liquids* up until 0945, which is 2 hours before your arrival time. *Clear liquids = water, carbohydrate drink (sports drink that is clear or yellow in color), Ensure Pre-Surgery (given by AMADOR or your DrJeanette), fruit juice without pulp (apple/cranberry), clear tea, black coffee (no cream). NO CARBONATED BEVERAGES AND NO ALCOHOL. Shower the morning of the procedure, put on clean clothes, and have clean sheets for your bed to help prevent infection after your procedure. Leave all valuables such as jewelry including rings, piercings, wallets, and purses at home. Wear comfortable, loose-fitting clothing. If you wear glasses or contacts, please bring a case. SPECIAL INSTRUCTIONS: If instructed, bring your first voided urine specimen with you. If you were provided skin preparation to use prior to your procedure, complete this as directed. If you were provided Ensure Pre-Surgery drink, you need to drink this at NA. This should be consumed quickly (in less than 5 minutes, rather than sipped over time) If you use crutches or a walker, bring them with you. If you have a home CPAP/BIPAP machine, bring it with you. If you were instructed to complete a fleets enema or bowel prep, complete as directed. Bring copy of Living Will/Power of Compressor Operator. Do not smoke or chew. If you use tobacco, quit or at least cut down before surgery. Do not smoke or chew after midnight the day before your surgery. This effects bleeding, infection, healing, and so much more. Do not take any Diet or Herbal Supplements 2 weeks prior to your surgery date. Please notify your physician if there is any change in your physical condition such as a cold, cough, fever, sore throat, or skin irritation near the surgical site. Visitors under the age of 14 are restricted in the Surgery Center. UPON ARRIVAL: Access to [facility] is located on [address] Customer Acquisition Specialist parking is available for your convenience from 5am-5pm- there is a $5.00 charge for this service. Take the elevators directly inside the entrance to the 1st Floor Surgery Lobby. Sign in at the podium located to the left when you get off the elevators. A payment may be expected at the time of service. One visitor may come back to the preoperative area with you. The preoperative staff will be reviewing your medical history, please let them know if you prefer not to have a visitor with you during this time. Once you are ready for surgery, two visitors at a time are permitted in your preoperative room. PATIENT MEDICATION INSTRUCTIONS Please read below carefully for your personalized instructions. Medications: If you are on blood thinner or anticoagulants including aspirin, please confirm with your surgical team on when to stop these medications. Unless instructed differently by your surgical team, stay on all of your medications until your surgery. Pre-Surgery Med Instructions Medication Instructions POTASSIUM CITRATE ORAL DO NOT TAKE MORNING OF SURGERY metFORMIN (GLUCOPHAGE) 1,000 mg tablet DO NOT TAKE MORNING OF SURGERY - No diabetic medication the morning of surgery. - Accucheck day of surgery. If you have any medication changes between receiving these instructions and your surgery date, please provide this updated information with the nurse who calls you the week day prior to your surgical procedure so we can update your list and provide you with updated instructions for the morning of your procedure. [facility] 04-27-2023 Note HNO ID: [id number] Author: Marnie Dong APRN.GONZALO Service: ? Author Type: Nurse Practitioner Type: Progress Notes Filed: 04/27/2023 1:46 PM Note Text: ------ Summary: DOS MEDS ------ PATIENT MEDICATION INSTRUCTIONS Please read below carefully for your personalized instructions. Medications: If you are on blood thinner or anticoagulants including aspirin, please confirm with your surgical team on when to stop these medications. Unless instructed differently by your surgical team, stay on all of your medications until your surgery. Pre-Surgery Med Instructions Medication Instructions POTASSIUM CITRATE ORAL DO NOT TAKE MORNING OF SURGERY metFORMIN (GLUCOPHAGE) 1,000 mg tablet DO NOT TAKE MORNING OF SURGERY - No diabetic medication the morning of surgery. - Accucheck day of surgery. If you have any medication changes between receiving these instructions and your surgery date, please provide this updated information with the nurse who calls you the week day prior to your surgical procedure so we can update your list and provide you with updated instructions for the morning of your procedure. [facility] 04-08-2023 Note HNO ID: [id number] Author: Bakari Velázquez MD Service: ? Author Type: Physician Type: Procedures Filed: 04/08/2023 10:10 AM Note Text: CYSTOSCOPY/stent removal- PROCEDURE NOTE: Cysto/stent remove-[id number] Dx:[id number] Lorna Wylie is a 37 year old female who presents for a cystoscopy and stent removal Pt ID verified with patient: yes Procedure verified with patient: cystoscopy/stent remove-yes Procedure confirmed with physician and support services specialist: yes Special equipment-cystoscope and grasping forceps UNIVERSAL PROTOCOL / SAFETY CHECKLIST Procedure to be Performed: Cystoscopy and stent removal Sign In: A Moment of CARE was completed. Personnel directly involved with the procedure wore the appropriate PPE (Personal Protective Equipment). Patient/Surrogate Stated/Verified: PATIENT VERIFIED(optional for EMERGENT procedures): Patient name, Date of , Relevant allergies, and The intended procedure Time Out Communication: Intended patient and procedure match the source documents. Consent documented and matches the intended procedure. Sign Out: SIGN OUT (optional for EMERGENT procedures): No specimen collected. Bakari Velázquez MD The benefits, risks, alternatives of the cystoscopy procedure and personnel were discussed with the patient. The verbal consent was obtained and the patient agrees to proceed. Procedure: The patient was placed on the procedure table in the supine/lithotomy position and prepped in the usual sterile fashion. Antibiotic was Bactrim I used a flexible cystoscope to perform the procedure. The stent was grasped and removed intact. ASSESSMENT/PLAN: 1. Kidney stone - ICD9: 592.0, ICD10: N20.0 The left ureteral stone and left upper pole stone are now gone. The left lower pole stone remains. I will arrange left ESWL. I plan to place a stent at the same time. Bakari Velázquez MD See progress note for plans Bakari Velázquez MD [facility] 04-08-2023 Note HNO ID: [id number] Author: RT Ariane(R) Service: Radiology Author Type: Technologist Type: Progress Notes Filed: 04/08/2023 9:18 AM Note Text: Radiology Service Progress Note PATIENT NAME: Lorna Wylie DATE OF SERVICE: April 08, 2023 TIME: 9:18 AM PATIENT IDENTITY VERIFICATION COMPLETED USING TWO (2) IDENTIFIERS: Name and Date of confirmed by patient verbally. FALL SCREENING: Has the patient had 2 falls in the last year or 1 fall with injury or currently using an Ambulatory Assistive Device (Walker, Cane, Wheelchair, Crutches, etc.)? No PATIENT GENDER DATA: Female. status: : No status: NO. PATIENT RELEVANT IMPLANT DATA REVIEWED: Not Applicable RADIOLOGY DEPARTMENT: General X-ray: Exam(s) Completed: Abdomen X-Ray: Abdomen PERIPHERAL IV DATA: Not applicable SIGNED BY: RT Ariane(R) April 08, 2023 9:18 AM [facility] 03-24-2023 Note HNO ID: [id number] Author: Marisol Zafar RN Service: Nursing Author Type: Registered Nurse Type: Nursing Progress Note Filed: 03/24/2023 2:47 PM Note Text: Procedural site to Left flank from ESWL slightly reddened [facility] 03-24-2023 Note HNO ID: [id number] Author: Candi Subramanian APRN.CRNA Service: ? Author Type: Nurse Skid Road Man Type: Anesthesia Procedure Notes Filed: 03/24/2023 11:36 AM Note Text: ANESTHESIOLOGY PROCEDURE NOTE Airway General Information Procedure Start Time/Medication Administration: 03/24/2023 11:20 AM Patient location during procedure: OR Timeout Performed Pre-procedure: timeout performed Consent Obtained: Yes Patient identity confirmed: arm band Staffing Anesthesiologist: Melvin Casarez DO BOTTLE CAPPER: Candi Subramanian APRN.CRNA Performed by: anesthesiologist Indications and Patient Condition Indications for airway management: anesthesia and airway protection Preoxygenated: yes anesthesia circuit Patient position: sniffing Method: asleep Cricoid Pressure: Yes Manual In-Line Stabilization: Yes Difficult Mask: No Airway Accessory: oral airway Final Airway Details Final airway type: endotracheal airway Final Endotracheal Airway: ETT Cuffed: yes Successful intubation technique: video laryngoscopy Devices used: InsideMaps Endotracheal tube insertion site: oral Blade: Heather Blade size: #3 ETT size (mm): 7.0 Measured from: gums Measurement (cm): 22 Placement verified by: chest auscultation Cormack-Lehane Classification: grade I - full view of glottis Number of attempts at approach: 1 Failed airway: no Unrecognized esophageal intubation: no Airway not difficult SIGNATURE: Candi Subramanian APRN.CRNA PATIENT NAME: Lorna Wylie DATE: March 24, 2023 TIME: 11:35 AM CSN: [id number] [facility] 03-23-2023 Note HNO ID: [id number] Author: Michael Tuttle RN Service: Nursing Author Type: Registered Nurse Type: Progress Notes Filed: 03/23/2023 3:08 PM Note Text: PATIENT MEDICATION INSTRUCTIONS Please read below carefully for your personalized instructions. Medications: If you are on blood thinner or anticoagulants including aspirin, please confirm with your surgical team on when to stop these medications. Unless instructed differently by your surgical team, stay on all of your medications until your surgery. Pre-Surgery Med Instructions Medication Instructions metFORMIN (GLUCOPHAGE) 1,000 mg tablet DO NOT TAKE MORNING OF SURGERY - No diabetic medication the morning of surgery. - Accucheck day of surgery. If you have any medication changes between receiving these instructions and your surgery date, please provide this updated information with the nurse who calls you the week day prior to your surgical procedure so we can update your list and provide you with updated instructions for the morning of your procedure. PRE-PROCEDURE INSTRUCTIONS TO PREPARE FOR YOUR PROCEDURE: Your arrival time for your procedure is 0900. Do NOT eat any solid foods after MIDNIGHT the night prior to your procedure - this includes gum or mints. You can drink clear liquids* up until 0700, which is 2 hours before your arrival time. *Clear liquids = water, carbohydrate drink (sports drink that is clear or yellow in color), Ensure Pre-Surgery (given by AMADOR or your DrJeanette), fruit juice without pulp (apple/cranberry), clear tea, black coffee (no cream). NO CARBONATED BEVERAGES AND NO ALCOHOL. Shower the morning of the procedure, put on clean clothes, and have clean sheets for your bed to help prevent infection after your procedure. Leave all valuables such as jewelry including rings, piercings, wallets, and purses at home. Wear comfortable, loose-fitting clothing. If you wear glasses or contacts, please bring a case. SPECIAL INSTRUCTIONS: If instructed, bring your first voided urine specimen with you. If you were provided skin preparation to use prior to your procedure, complete this as directed. If you were provided Ensure Pre-Surgery drink, you need to drink this at n/a. This should be consumed quickly (in less than 5 minutes, rather than sipped over time) If you use crutches or a walker, bring them with you. If you have a home CPAP/BIPAP machine, bring it with you. If you were instructed to complete a fleets enema or bowel prep, complete as directed. Bring copy of Living Will/Power of Compressor Operator. Do not smoke or chew. If you use tobacco, quit or at least cut down before surgery. Do not smoke or chew after midnight the day before your surgery. This effects bleeding, infection, healing, and so much more. Do not take any Diet or Herbal Supplements 2 weeks prior to your surgery date. Please notify your physician if there is any change in your physical condition such as a cold, cough, fever, sore throat, or skin irritation near the surgical site. Visitors under the age of 14 are restricted in the Surgery Center. UPON ARRIVAL: Access to [facility] (the glass building) is located on [address]. Customer Acquisition Specialist parking is available for your convenience from 5am-5pm- there is a $5.00 charge for this service. Take the elevators directly inside the entrance to the 1st Floor Surgery Lobby. Sign in at the podium located to the left when you get off the elevators. A payment may be expected at the time of service. One visitor may come back to the preoperative area with you. The preoperative staff will be reviewing your medical history, please let them know if you prefer not to have a visitor with you during this time. Once you are ready for surgery, two visitors at a time are permitted in your preoperative room. [facility] 03-23-2023 Note HNO ID: [id number] Author: Marnie Dong APRN.GONZALO Service: ? Author Type: Nurse Practitioner Type: Progress Notes Filed: 03/23/2023 9:46 AM Note Text: ------ Summary: dos meds ------ PATIENT MEDICATION INSTRUCTIONS Please read below carefully for your personalized instructions. Medications: If you are on blood thinner or anticoagulants including aspirin, please confirm with your surgical team on when to stop these medications. Unless instructed differently by your surgical team, stay on all of your medications until your surgery. Pre-Surgery Med Instructions Medication Instructions metFORMIN (GLUCOPHAGE) 1,000 mg tablet DO NOT TAKE MORNING OF SURGERY - No diabetic medication the morning of surgery. - Accucheck day of surgery. If you have any medication changes between receiving these instructions and your surgery date, please provide this updated information with the nurse who calls you the week day prior to your surgical procedure so we can update your list and provide you with updated instructions for the morning of your procedure. [facility] 02-28-2023 Note . MICRO - Microbiology PROCEDURE: Blood Culture (bacterial) [*1] SOURCE: Blood BODY SITE: COLLECTED DATE/TIME: 02/22/2023 23:10 EDT RECEIVED DATE/TIME: 02/23/2023 15:40 EDT START DATE/TIME: 02/23/2023 15:41 EDT FREE TEXT SOURCE: FINAL REPORTS Final Report [] Verified Date/Time/Personnel: 02/28/2023 15:59 EDT Blood Culture: No Growth at 5 days. PRELIMINARY REPORTS Preliminary Report [] Verified Date/Time/Personnel: 02/23/2023 16:59 EDT Culture has been received in lab and is no growth to date. Routine cultures are held for 5 days. Performing Locations *1: This test was performed at: [address], [address] [place] [address] ([place]) 02-24-2023 Note . MICRO - Microbiology PROCEDURE: Urine Culture [*1] SOURCE: Urine BODY SITE: COLLECTED DATE/TIME: 02/19/2023 10:30 EDT RECEIVED DATE/TIME: 02/19/2023 18:51 EDT START DATE/TIME: 02/19/2023 18:51 EDT FREE TEXT SOURCE: AMENDED REPORTS Amended Report [] Verified Date/Time/Personnel: 02/24/2023 20:51 EDT >100,000 cfu/ml Escherichia coli FINAL REPORTS Final Report [] Verified Date/Time/Personnel: 02/21/2023 10:22 EDT >100,000 cfu/ml Escherichia coli LENA to follow PRELIMINARY REPORTS Preliminary Report [] Verified Date/Time/Personnel: 02/20/2023 13:19 EDT >100,000 cfu/ml Escherichia coli LENA to follow SUSCEPTIBILITY RESULTS Escherichia coli Antibiotic LENA Dilut LENA Inter Ampicillin >16 Resistant Ampicillin/ 16/8 Intermediate Sulbactam Aztreonam <=4 Susceptible Cefazolin 4 Susceptible Ciprofloxacin <=0.25 Susceptible Ertapenem <=0.5 Susceptible Gentamicin >8 Resistant Imipenem <=1 Susceptible Levofloxacin <=0.5 Susceptible Meropenem <=1 Susceptible Minocycline <=4 Susceptible Nitrofurantoin <=32 Susceptible Piperacillin/ <=8 Susceptible Tazobactam Tobramycin 8 Intermediate Trimethoprim/ >2/38 Resistant Sulfa Performing Locations *1: This test was performed at: [facility], [address] [place] [address], [facility] , [facility] ([place]) 02-24-2023 Note HNO ID: [id number] Author: Ismael Lofton DO Service: Hospital Medicine Author Type: Physician Type: Progress Notes Filed: 02/24/2023 5:33 PM Note Text: HOSPITALIST SERVICE DAILY PROGRESS NOTE PRIMARY CARE PHYSICIAN: No primary care provider on file. SUBJECTIVE: Patient seen and examined at bedside. Patient was admitted to the hospital yesterday for obstructive kidney stones and UTI. She states that her pain has improved but she did continues to have fevers and sweats overnight. She was seen by urology today and had cystoscopy and left ureteral stent insertion performed this afternoon. Of note, patient has no history of kidney stones in the past. OBJECTIVE: PHYSICAL EXAM: BP 151/84 Pulse 91 Temp (Src) 98.5 (Temporal) Resp 22 Ht 5' 6 (1.68m) Wt 415 lb 3 oz (188.3kg) SpO2 95% BMI 67.05 kg/(m2). O2 Therapy: Nasal Cannula, Liters: 2 General: Patient is alert and oriented x3 and is in no acute respiratory distress HEENT: Normal cephalic, atraumatic, PERRLA, TM's normal, Nose clear, Mouth normal Neck: Negative hepatojugular reflux or jugular venous distention, negative carotid bruit. Lungs: Clear to auscultation, no wheezing, rales, or rhonchi. Cardiac: Regular rhythm and rate, S1-S2 within normal limits, no murmurs, gallops were appreciated, no rubs. Abdomen: Morbidly obese. Soft, nontender, nondistended, no HSM detected, bowel sounds are active. Extremities: No edema, cyanosis, or clubbing. Skin: No rashes or breakdown. Musculoskeletal: normal MS exam, moves all extremities, DTR's normal Lymphatic: Negative cervical, supra-clavicular, groin lymphadenopathy. Neurologic: Cranial nerves from II-XII intact grossly, no focal deficits. Psychiatry: Normal affect. DATA: Intake/Output Summary (Last 24 hours) at 02/24/2023 1726 Last data filed at 02/24/2023 1531 Gross per 24 hour Intake 1890 ml Output -- Net 1890 ml Current Facility-Administered Medications Medication Dose Route Frequency Provider Last Rate Last Admin lactated ringers iv infusion 5-30 mL/hr INTRAVENOUS CONTINUOUS Gustavo Rose APRN.BOTTLE CAPPER lactated ringers iv infusion 5-30 mL/hr INTRAVENOUS CONTINUOUS Efren Cade MD NaCl 0.9% iv flush bag 20 mL INTRAVENOUS PRN Bakari Velázquez MD NaCl 0.9% iv infusion 75 mL/hr INTRAVENOUS CONTINUOUS Bakari Velázquez MD 75 mL/hr at 02/23/23 2337 75 mL/hr at 02/23/23 2337 cefTRIAXone 1 g in D5W 100 mL Vial-Bag (ROCEPHIN) 1 g INTRAVENOUS q 24 H Bakari Velázquez MD Stopped at 02/24/23 0832 ondansetron (PF) 4 mg injection (ZOFRAN) 4 mg INTRAVENOUS q 6 H PRN Bakari Velázquez MD acetaminophen 650 mg tab(s) (TYLENOL) 650 mg ORAL q 4 H PRN Baakri Velázquez MD 650 mg at 02/24/23 0802 traMADol 50 mg tab(s) (ULTRAM) 50 mg ORAL q 6 H PRN Bakari Velázquez MD HYDROmorphone (PF) 0.4 mg injection (DILAUDID) 0.4 mg INTRAVENOUS q 4 H PRN Bakari Velázquez MD heparin 5,000 Units injection 5,000 Units SUBCUTANEOUS q 12 H Bakari Velázquez MD 5,000 Units at 02/23/23 2019 Recent Results (from the past 36 hour(s)) PHYSICIAN CONSULT (AK,AV,EU,FV,HL,IR,GAURAV,MH,MM,MR,SP) Collection Time: 02/23/23 10:44 AM Narrative Bakari Velázquez MD 02/23/2023 8:21 PM Urology INITIAL CONSULT NOTE SERVICE DATE: 02/23/2023 SERVICE TIME: 8:18 PM REASON FOR CONSULT: Left ureteral stone with infection REQUESTING PHYSICIAN: David PRIMARY CARE PHYSICIAN: No primary care provider on file. Subjective Ms. Wylie is a 37 year old female who presented to [facility] with left flank pain, fevers and chills. In the emergency department she was hypotensive. She was fluid resuscitated CT scan showed a 7 mm left proximal ureteral stone. She was transferred to [facility]. On arrival she was normotensive and did not appear toxic. I was consulted routinely for a left ureteral stone. FUNCTIONAL STATUS: Independent No past medical history on file. No past surgical history on file. No family history on file. metFORMIN (GLUCOPHAGE) 1,000 mg tablet, Take 1,000 mg by mouth twice daily with meals., Disp: , Rfl: , 02/22/2023 Current Facility-Administered Medications Medication Dose Route Frequency NaCl 0.9% iv flush bag 20 mL INTRAVENOUS PRN NaCl 0.9% iv infusion 75 mL/hr INTRAVENOUS CONTINUOUS cefTRIAXone 1 g in D5W 100 mL Vial-Bag (ROCEPHIN) 1 g INTRAVENOUS q 24 H ondansetron (PF) 4 mg injection (ZOFRAN) 4 mg INTRAVENOUS q 6 H PRN acetaminophen 650 mg tab(s) (TYLENOL) 650 mg ORAL q 4 H PRN traMADol 50 mg tab(s) (ULTRAM) 50 mg ORAL q 6 H PRN HYDROmorphone (PF) 0.4 mg injection (DILAUDID) 0.4 mg INTRAVENOUS q 4 H PRN heparin 5,000 Units injection 5,000 Units SUBCUTANEOUS q 12 H Allergies As of Date: 02/23/2023 Allergen Noted Reaction SEPTRA [SULFAMETHOXAZOLE-TRIMETHO*02/23/2023 Hives Fully Assessed 02/23/2023 COMPLETE REVIEW OF SYSTEMS: Pain in her left flank is currently controlled No chest pain No cough She wears (more content not included)... [facility] 02-24-2023 Note HNO ID: [id number] Author: Gustavo Rose APRN.YOUSIF Service: Anesthesiology Author Type: Nurse Skid [address] Man Type: Anesthesia Procedure Notes Filed: 02/24/2023 3:21 PM Note Text: ANESTHESIOLOGY PROCEDURE NOTE Airway General Information Procedure Start Time/Medication Administration: 02/24/2023 3:15 PM Patient location during procedure: OR Timeout Performed Pre-procedure: timeout performed Consent Obtained: Yes Patient identity confirmed: arm band Staffing Anesthesiologist: Efren Cade MD BOTTLE CAPPER: Gustavo Rose APRN.BOTTLE CAPPER Performed by: anesthesiologist Indications and Patient Condition Indications for airway management: anesthesia Preoxygenated: yes anesthesia circuit Patient position: sniffing Method: asleep Cricoid Pressure: Yes Manual In-Line Stabilization: No Difficult Mask: No Final Airway Details Final airway type: endotracheal airway Final Endotracheal Airway: ETT Cuffed: yes Successful intubation technique: direct laryngoscopy Devices used: intubating stylet Endotracheal tube insertion site: oral Blade: Choi Blade size: #2 ETT size (mm): 7.0 Measured from: lips Measurement (cm): 22 Placement verified by: chest auscultation and capnometry Cormack-Lehane Classification: grade I - full view of glottis Number of attempts at approach: 1 Failed airway: no Unrecognized esophageal intubation: no Airway not difficult SIGNATURE: Gustavo Rose APRN.BOTTLE CAPPER PATIENT NAME: Lorna Wylie DATE: February 24, 2023 TIME: 3:20 PM CSN: [id number] [facility] 02-24-2023 Note HNO ID: [id number] Author: GENNA Duque Service: Care Management Author Type: Traveling Buyer Type: Care Mgt Progress Note Filed: 02/24/2023 12:09 PM Note Text: CARE MANAGEMENT PROGRESS NOTE SERVICE DATE: 02/24/2023 SERVICE TIME: 12:04 PM LOS: 1 day Pt admitted from home with spouse for left ureteral stone. Pt will have stents placed today. Pt is independent at home, has a PCP and insurance. No anticipated needs at this time. SIGNATURE: GENNA Duque PATIENT NAME: Lorna Wylie DATE: February 24, 2023 TIME: 12:04 PM PAGER/CONTACT #: [facility] Summary Purpose Family History No Family History Records FoundNo Family History Records FoundNo Family History Records FoundNo Family History Records Found Advance Directives No Advanced Directives Records FoundNo Advanced Directives Records FoundNo Advanced Directives Records FoundNo Advanced Directives Records Found Additional Source Comments INFORMATION SOURCE (unrecogn ized section and content) DATE CREATED AUTHOR AUTHOR'S ORGANIZ ATION 03/01/2023 [facility] DATE CREATED AUTHOR AUTHOR'S ORGANIZ ATION 05/20/2023 [facility] ([place]) DATE CREATED AUTHOR AUTHOR'S ORGANIZ ATION 05/28/2023 [facility] nter FOR RECORDS PERTAINING TO PATIENTS WHO ARE OR HAVE BEEN ENROLLED IN A CHEMICAL DEPENDENCY/SUBSTANCEABUSE PROGRAM, SOME INFORMATION MAY BE OMITTED. This clinical summary was aggregated from multiple sources. Caution should be exercised in using it in the provision of clinical care. This summary normalizes information from multiple sources, and as a consequence, information in this document may materially change the coding, format and clinical context of patient data. In addition, data may be omitted in some cases. CLINICAL DECISIONS SHOULD BE BASED ON THE PRIMARY CLINICAL RECORDS. [facility] [employer] [facility]. provides no warranty or guarantee of the accuracy or completeness of information in this document.
[2023-12-09] MEDS: Lactated Ringers 1,000 ML 15 ML IV (06:47)
[2023-12-09 07:23] LABS: Bedside Glucose 117 mg/dL (74-106)
[2023-12-09 07:27] LABS: Anion Gap 4 (5-15); BUN 15 mg/dL (7-18); BUN/Creat Ratio 17.1 RATIO (10-20); Calcium,Total 10.4 mg/dL (8.5-10.1); Chloride 114 mmol/L (98-107); Creatinine, Serum 0.88 mg/dL (0.55-1.02); EST Glomerular Filtration Rate 77 mL/min (>60); Est Glom Filt Rate - Afr Amer 93 mL/min (>60); Estimated Creatinine Clearance 151.42 ml/min; Glucose 109 mg/dL (74-106); Potassium 3.7 mmol/L (3.5-5.1); Sodium Level 144 mmol/L (136-145)
[2023-12-09] MEDS: Cefazolin 3 GM in 0.9% Normal Saline (100mL Bag) 100 ML IV (07:40)
--- NOTE | 2023-12-09 09:18 | EX.PCM.DISCH ---
Discharge Instructions Diet Discharge Diet: No restrictions Activity Discharge Activity: Return to Normal Activity Dressing / Incision Call your doctor if you observe: Fever of 101 or Higher, Inability to urinate, Inability to have a bowel movement and Uncontrolled pain Follow Up Care Please Follow Up With: Kenzie Simmons MD When: the office will call to make further surgical arrangements Test Results: Test results from this visit will be discussed in further detail at your follow-up appointment, if applicable. Discharge Plan Admission Attending Provider: Kenzie Simmons Primary Care Provider: Pedro Malik Discharge Orders/Prescriptions Prescriptions: New oxycodone-acetaminophen [Percocet] 5-325 mg tablet 1 tab PO Q8H PRN (Reason: pain) 5 Days Qty: 15 0RF Continued calcium carbonate 600 MG tablet 600 mg PO DAILY metformin 1,000 MG tablet 1,000 mg PO BIDCM Hold Instructions: Resume on 10/26/23. multivitamin Tablet 1 tab PO DAILY magnesium oxide 420 mg tablet 420 mg PO DAILY acetaminophen 325 mg Tablet 1,000 mg PO Q8H PRN (Reason: Pain 1-10 Or Fever) Qty: 0 0RF ibuprofen 200 mg capsule 600 mg PO DAILY Referrals / Follow Up: Pedro Malik MD [Primary Care Provider] - Disposition Disposition (needs filled in before D/C Order can be placed): Home, Self Care
[2023-12-09 10:14] LABS: Anion Gap 2 (5-15); BUN 15 mg/dL (7-18); BUN/Creat Ratio 13.5 RATIO (10-20); Chloride 111 mmol/L (98-107); Creatinine, Serum 1.11 mg/dL (0.55-1.02); EST Glomerular Filtration Rate 59 mL/min (>60); Est Glom Filt Rate - Afr Amer 71 mL/min (>60); Estimated Creatinine Clearance 120.04 ml/min; Glucose 111 mg/dL (74-106); Sodium Level 142 mmol/L (136-145)
--- NOTE | 2023-12-09 10:14 | OP.PCM_ITS ---
Report of Operation Date of Procedure: 12/09/23 Pre-Operative Diagnosis: Left proximal ureteral and left renal stones Post-Operative Diagnosis: Same Surgery/Procedure Performed:: Cystoscopy, left ureteroscopy, holmium laser lithotripsy, left ureteral stent change Surgeon: Kenzie Simmons Type of Anesthesia: General Specimen's removed: None Description of Procedure: The patient is a 38-year-old female who has had a left ureteral stent inserted for management of an obstructing proximal ureteral stone in addition to a very large left lower pole stone. She now presents for definitive surgical intervention and informed consent has been obtained. The patient was taken to the operating room and placed on the operating room table. Anesthesia monitored the head, neck, airway, IV access and vital signs throughout the case. Once anesthesia was appropriately administered, the patient was placed into dorsolithotomy position and was prepped and draped in usual sterile fashion. The cystoscope was then inserted through the urethra under direct visualization into the urinary bladder. The left ureteral stent was easily visualized. 2 separate 0.035 Glidewire's were passed alongside the indwelling stent which was then removed with graspers. There was slight difficulty with removal of the stent as there was obstruction with the proximal coil likely in the mid ureter. With constant tension, the stent was removed without evidence of injury. At this time the flexible ureteroscope was inserted over one of the wires and easily obtained access to the left ureter. In the mid left ureter and obstruction was met and the scope could not pass proximal to it. It appeared to be a stone with some mucosa beginning to grow around it. The 200 ?m laser fiber was then used to break the stone into smaller pieces. The stone was very large and I difficulty identifying normal ureteral anatomy. I spent a lot of time in care and safely breaking the stone. After an hour of intervention, he attempted to advance the ureteroscope past the level of the stone and I was unable to do this safely. At this time the decision was made to stop the procedure, replaced the stent and further manage the stone with shockwave lithotripsy. Using the indwelling Glidewire, and the cystoscope, a 6 Vietnamese 24 cm stent was inserted over the wire with good positioning in the renal pelvis and the urinary bladder. Of note, there were no issues with the positioning of the safety wire throughout the case, and her abdomen remained soft and nondistended. I felt that there was significant edema and the stone was much larger than anticipated and the safest action was to terminate the procedure at that time. The patient's bladder was emptied and the cystoscope was removed. Grafts/Implants Used: 6 x 24 JJ stent Complications None Admit VTE Documentation VTE Present on Admission: Yes VTE Mechan Device Prophylaxis: SCD's VTE Pharm Prophylaxis ordered?: No Reason prophylaxis not ordered:: Treatment Not Indicated
== END 2023-12-09 11:07 | disposition home or self-care (01) ==
LOC: SDC 05:58 → AC 06:00
PROVIDERS: PCP Family Medicine; Referring Provider Urology; Visit Provider Urology
PROC: 0TJ98ZZ Inspection of Ureter, Via Natural or Artificial Opening Endoscopic (ICD-10-PCS; CPT 52352; principal; 2023-12-09 07:20)
DX: N20.2 Calculus of kidney with calculus of ureter (principal); E11.9 Type 2 diabetes mellitus without complications; I10 Essential (primary) hypertension; N13.6 Pyonephrosis
CPT/HCPCS: 52356; 00873; 76000; 80048; 82962; J7120; C2617; J2405

== ENCOUNTER 2023-12-30 09:14 | Day surgery (SDC) | payer SELFPAY, OTHER ==
[2023-12-30] VITALS (8 sets, daily range): BP systolic 132–174; BP diastolic 84–99; PULSE 78–94; RESP 16–18; TEMP 35.8–36.8; O2SAT 91–96; BMI 66.2
[2023-12-30] MEDS: Lactated Ringers 1,000 ML 15 ML IV (10:03)
[2023-12-30 10:23] LABS: Bedside Glucose 100 mg/dL (74-106)
[2023-12-30] MEDS: Cefazolin 3 GM in 0.9% Normal Saline (100mL Bag) 100 ML IV (10:49)
--- NOTE | 2023-12-30 12:10 | DCINST_ITS ---
Discharge Instructions Diet Discharge Diet: No restrictions Activity Discharge Activity: Return to Normal Activity Dressing / Incision Call your doctor if you observe: Fever of 101 or Higher, Inability to urinate and Inability to have a bowel movement Follow Up Care Please Follow Up With: Kenzie Simmons MD When: the office will call to make follow up arrangements Test Results: Test results from this visit will be discussed in further detail at your follow- up appointment, if applicable. Discharge Plan Admission Attending Provider: Kenzie Simmons Primary Care Provider: Pedro Malik Discharge Orders/Prescriptions Prescriptions: New phenazopyridine [Pyridium] 200 mg tablet 200 mg PO TID PRN PRN (Reason: Bladder Spasms) 7 Days Qty: 30 0RF oxycodone-acetaminophen [Percocet] 5-325 mg tablet 1 tab PO Q8H PRN (Reason: pain) 5 Days Qty: 15 0RF cephalexin [cephalexin] 500 mg capsule 500 mg PO Q12 3 Days Qty: 6 0RF Continued calcium carbonate 600 MG tablet 600 mg PO DAILY metformin 1,000 MG tablet 1,000 mg PO BIDCM Hold Instructions: Resume on 10/26/23. multivitamin Tablet 1 tab PO DAILY magnesium oxide 420 mg tablet 420 mg PO DAILY acetaminophen 325 mg Tablet 1,000 mg PO Q8H PRN (Reason: Pain 1-10 Or Fever) Qty: 0 0RF ibuprofen 200 mg capsule 600 mg PO DAILY PRN (Reason: pain) Referrals / Follow Up: Pedro Malik MD [Primary Care Provider] - Disposition Disposition (needs filled in before D/C Order can be placed): Home, Self Care
--- NOTE | 2023-12-30 12:13 | PCM.OPRPT ---
Report of Operation Date of Procedure: 12/30/23 Pre-Operative Diagnosis: Left renal and ureteral ureteral stones Post-Operative Diagnosis: Same Surgery/Procedure Performed:: Left renal extracorporal shockwave lithotripsy Description of Surgical Findings:: Unable to determine amount of stone burden along with a left ureteral stent today. Will plan to proceed with CT evaluation in a few weeks prior to stent removal. Surgeon: Kenzie Simmons Type of Anesthesia: General Specimen's removed: None Description of Procedure: The patient is a 38-year-old female with a large left renal stone and a left ureteral stone that she previously underwent laser lithotripsy for. She now presents for extracorporal shockwave lithotripsy. Informed consent was obtained. The patient was taken the operating room and placed on the operating room table. Anesthesia monitored the head, neck, airway, IV access and vital signs throughout the case. Once anesthesia was appropriately administered, she was aligned with the lithotripter and her stone was clearly identified in the left kidney. 3000 shocks were applied to the stone which appeared to be fragmented at the conclusion of the case. Visualization of the entire length of the left ureter was performed with the fluoroscopy. At this time I was unable to determine the amount of stone debris alongside the stent. The patient was then awakened and taken to the recovery room in good condition. There were no complications during this procedure. Grafts/Implants Used: None Complications None Admit VTE Documentation VTE Present on Admission: Yes VTE Mechan Device Prophylaxis: SCD's VTE Pharm Prophylaxis ordered?: No Reason prophylaxis not ordered:: Treatment Not Indicated
--- NOTE | 2023-12-30 12:16 | HP.PCM_ITS ---
[facility] - General General Date of Service: 12/30/23 Chief Complaint: Left kidney stones [facility] Narrative TASIA EDWARDS, is a 38 F who presents for extracorporal shockwave lithotripsy of a large left renal calculus. Informed consent has been obtained. She is already been through a stent insertion for infection followed by ureteroscopy with laser lithotripsy and stent change. She has been having difficulty with stent discomfort but is otherwise doing well. She is aware that her stone burden is large and this may require multiple procedures to get rid of her stones. [facility] Medical History BMI 60.0-69.9, adult Cancer CPAP (continuous positive airway pressure) dependence Diabetes History of cellulitis History of echocardiogram History of edema Kidney stones Left ureteral calculus Multiple thyroid nodules Non-smoker Home Medications calcium carbonate 600 mg calcium (1,500 mg) tablet 600 mg PO DAILY SUPPLEMENT 05/19/18 [History Last Taken 10/19/23] metformin 1,000 mg tablet 1,000 mg PO BIDCM DIABETES 05/19/18 [History Last Taken 10/19/23] magnesium oxide 420 mg tablet 420 mg PO DAILY supplement 10/20/23 [History Last Taken 10/19/23] multivitamin 1 tab PO DAILY health maintenance 10/20/23 [History Last Taken 10/19/23] acetaminophen 325 mg tablet 1,000 mg (3.0769 x 325 mg) PO Q8H PRN Pain 1-10 Or Fever #0 tabs 10/23/23 [Rx Last Taken Unknown] ibuprofen 200 mg capsule 600 mg PO DAILY PRN pain 12/06/23 [History Last Taken Unknown] cephalexin 500 mg capsule 500 mg PO Q12 post-operative 3 days #6 CAPSULES 12/30/23 [Rx Last Taken Unknown] oxycodone-acetaminophen 5 mg-325 mg tablet (Percocet) 1 tab PO Q8H PRN pain 5 days #15 tabs 12/30/23 [Rx Last Taken Unknown] phenazopyridine 200 mg tablet (Pyridium) 200 mg PO TID PRN PRN Bladder Spasms 7 days #30 tabs 12/30/23 [Rx Last Taken Unknown] Allergy/AdvReac Type Severity Reaction Status Date / Time sulfamethoxazole Allergy SORES IN Verified 12/27/23 14:59 [From ] MOUTH trimethoprim [From ] Allergy SORES IN Verified 12/27/23 14:59 MOUTH Surgical History (Updated 12/27/23 @ 15:05 by Soila Bustillo) History of tonsillectomy and adenoidectomy Hx laparoscopic cholecystectomy Hx of cystoscopy S/P hysterectomy Social History Smoking Status: Never smoker ROS Constitutional Constitutional: Reports systems reviewed and no addt'l complaints, except as documented Eyes Eyes: Reports systems reviewed and no addt'l complaints, except as documented ENT HEENT: Reports systems reviewed and no addt'l complaints, except as documented Cardiovascular Cardiovascular: Reports systems reviewed and no addt'l complaints, except as documented Respiratory/Chest Respiratory/Chest: Reports systems reviewed and no addt'l complaints, except as documented Gastrointestinal Gastrointestinal: Reports systems reviewed and no addt'l complaints, except as documented Genitourinary Genitourinary: Reports hematuria, urinary frequency, urinary hesitancy and urinary urgency Musculoskeletal Musculoskeletal: Reports systems reviewed and no addt'l complaints, except as documented Integumentary Integumentary: Reports systems reviewed and no addt'l complaints, except as documented Neurologic Neurologic: Reports systems reviewed and no addt'l complaints, except as documented Psychiatric Psychiatric: Reports systems reviewed and no addt'l complaints, except as documented Endocrine Endocrinology: Reports systems reviewed and no addt'l complaints, except as documented Hematologic/Lymphatic Hematologic/Lymphatic: Reports systems reviewed and no addt'l complaints, except as documented Allergic/Immunologic Allergic/Immunologic: Reports systems reviewed and no addt'l complaints, except as documented Vital Signs Vital Signs Vital Signs: 12/30/23 09:42 12/30/23 09:42 12/30/23 11:51 Temperature 98.3 F 97.8 F Temperature Source Temporal Temporal Pulse Rate 94 86 Respiratory Rate 16 16 Respiratory Pattern Normal Normal Blood Pressure 174/99 H 138/90 H Blood Pressure Mean 124 106 Blood Pressure Source Monitor Monitor Blood Pressure Position Sitting Semi-Fowlers Blood Pressure Location Right Forearm Right Forearm Baseline BP 174/99 Pulse Ox 96 91 Oxygen Delivery Method Room Air Room Air Oxygen Flow Rate (L/min) 12/30/23 11:55 12/30/23 12:00 12/30/23 12:05 Temperature Temperature Source Pulse Rate 88 87 86 Respiratory Rate 18 16 16 Respiratory Pattern Blood Pressure 137/93 H 137/92 H 146/92 H Blood Pressure Mean 107 107 110 Blood Pressure Source Monitor Monitor Monitor Blood Pressure Position Semi-Fowlers Semi-Fowlers Semi-Fowlers Blood Pressure Location Right Forearm Right Forearm Right Forearm Baseline BP 174/99 174/99 174/99 Pulse Ox 92 93 94 Oxygen Delivery Method Nasal Cannula Nasal Cannula Nasal Cannula Oxygen Flow Rate (L/min) 2 2 2 12/30/23 12:10 Temperature Temperature Source Pulse Rate 86 Respiratory Rate 16 Respiratory Pattern Blood Pressure 144/91 H Blood Pressure Mean 108 Blood Pressure Source Monitor Blood Pressure Position Semi-Fowlers Blood Pressure Location Right Forearm Baseline BP 174/99 Pulse Ox 94 Oxygen Delivery Method Nasal Cannula Oxygen Flow Rate (L/min) 2 Weight Weight: 186 kg Body Mass Index (BMI) 66.2 Physical Exam Const alert, oriented x3 and no apparent distress General Appearance: cooperative, comfortable and well kempt HEENT normocephalic, head/scalp atraumatic, hearing grossly normal bilaterally, external ears normal and external nose normal Eyes General Eye: normal appearance of both eyes Neck supple General: normal visual inspection and trachea midline Chest inspection of chest normal Resp normal respiratory effort, normal air movement and no retractions Cardio regular rate and regular rhythm GI soft to palpation and non-tender no CVA tenderness Back/Spine no CVA tenderness Extremity normal to inspection Skin no rashes or lesions noted, no wounds and skin turgor normal Neuro oriented x3, CN's II-XII intact bilaterally and moves all extremities Psych mental status grossly normal, thought process normal and cooperative Results Lab / Micro Data Labs: Laboratory Results - last 24 hr 12/30/23 09:54: POC Glucose 100 Assessment & Plan Assessment/Plan (1) Kidney stones: (2) Left ureteral calculus: PLAN: Plan Proceed with left renal extracorporal shockwave lithotripsy and evaluation of the left ureter today
[2023-12-30 12:51] LABS: Bedside Glucose 108 mg/dL (74-106)
== END 2023-12-30 13:57 | disposition home or self-care (01) ==
LOC: SDC 09:16 → AC 09:18
PROVIDERS: PCP Family Medicine; Referring Provider Urology; Visit Provider Urology
PROC: (CPT 50590; principal; 2023-12-30 10:35)
DX: N20.2 Calculus of kidney with calculus of ureter (principal); E11.9 Type 2 diabetes mellitus without complications; Z79.84 Long term (current) use of oral hypoglycemic drugs
CPT/HCPCS: 50590; 00873; 82962; J7120; J2405

== ENCOUNTER 2024-01-03 23:04 | Emergency (ER) | payer OTHER, SELFPAY ==
[2024-01-03 23:04] VITALS: BP 204/117; PULSE 107; RESP 16; TEMP 37.2; O2SAT 94; BMI 66.0
[2024-01-03 23:23] VITALS: BP 189/109
--- NOTE | 2024-01-03 23:28 | ED.RN ---
Pt states I have problems with my blood pressure being high , denies headache, blurry vision.
[2024-01-03 23:49] LABS: Bacteria 0 SEEN /hpf (None Seen); Mucous, Urine 0 SEEN /hpf (<or=2+)
[2024-01-03 23:51] LABS: Color, Urine Yellow (Yellow); Glucose, Dipstick Normal (Normal); Ketone-Dipstick Negative (Negative); Leukocyte Esterase-Dipstick 500 /ul (Negative); Nitrite-Dipstick Positive (Negative); Occult Blood-Urine 250 /ul (Negative); Protein-Dipstick 30 mg/dl (Negative); Urine Bilirubin Dipstick Negative (Negative); Urine Clarity Clear (Clear); Urine Urobilinogen Normal (Normal)
[2024-01-04 00:01] LABS: Amorphous Sediment 0 SEEN; Calcium Oxalate Crystals Ur 0 SEEN /hpf (<or=2+); Coarse Granular Cast 0 SEEN /lpf (0-5 /lpf); Fine Granular Cast- Urine 0 SEEN /lpf (0-5); Hyaline Cast 0 SEEN /lpf (0-5); Other Crystals-Urine 0 SEEN /hpf (None Seen); Red Blood Cells-Urine 10-25 SEEN /hpf (0-5); Red Cell Cast 0 SEEN /lpf (None Seen); Squamous Epithelial Cells - UA 10-25 SEEN /hpf (5-10); Trichomonas 0 SEEN /hpf (None Seen); Triple Phosphate Crystals Ur 0 SEEN /hpf (<or=1+); Uric Acid Crystals Ur 0 SEEN /hpf (<or=1+); Waxy Cast-Urine 0 SEEN /lpf (None Seen); White Blood Cells 25-50 SEEN /hpf (0-5); White Cell Cast 0 SEEN /lpf (None Seen); Yeast-Urine 1+ /hpf (None Seen)
--- NOTE | 2024-01-04 00:06 | EX.ED.DYSGE1 ---
HPI History of Present Illness Chief Complaint: Complaint Informant: patient Onset/Context/Timing Onset: Today Context: Sudden Onset Timing: Continuous Quality: Aching Location: Left flank Worsened by: Activity Relieved by: Rest Narrative Narrative: Patient presents with fever and left flank pain that began today. Patient states she had a recent procedure for kidney stone removal. Patient states that she started having a fever up to 101 today. Patient states she still has some pain in her left flank. Patient admits to some nausea but denies any vomiting. Patient admits to some dysuria and urinary frequency. Patient denies any hematuria however. Patient states her pain radiates into her back. Patient states it is better with resting. Patient denies any abnormal vaginal bleeding or discharge. PFSH PFSH Medical History BMI 60.0-69.9, adult Cancer CPAP (continuous positive airway pressure) dependence Diabetes History of cellulitis History of echocardiogram History of edema Kidney stones Left ureteral calculus Multiple thyroid nodules Non-smoker Home Medications calcium carbonate 600 mg calcium (1,500 mg) tablet 600 mg PO DAILY SUPPLEMENT 05/19/18 [History Last Taken 10/19/23] metformin 1,000 mg tablet 1,000 mg PO BIDCM DIABETES 05/19/18 [History Last Taken 10/19/23] magnesium oxide 420 mg tablet 420 mg PO DAILY supplement 10/20/23 [History Last Taken 10/19/23] multivitamin 1 tab PO DAILY health maintenance 10/20/23 [History Last Taken 10/19/23] acetaminophen 325 mg tablet 1,000 mg (3.0769 x 325 mg) PO Q8H PRN Pain 1-10 Or Fever #0 tabs 10/23/23 [Rx Last Taken Unknown] ibuprofen 200 mg capsule 600 mg PO DAILY PRN pain 12/06/23 [History Last Taken Unknown] cephalexin 500 mg capsule 500 mg PO Q12 post-operative 3 days #6 CAPSULES 12/30/23 [Rx Last Taken Unknown] oxycodone-acetaminophen 5 mg-325 mg tablet (Percocet) 1 tab PO Q8H PRN pain 5 days #15 tabs 12/30/23 [Rx Last Taken Unknown] phenazopyridine 200 mg tablet (Pyridium) 200 mg PO TID PRN PRN Bladder Spasms 7 days #30 tabs 12/30/23 [Rx Last Taken Unknown] ciprofloxacin HCl 500 mg tablet 500 mg PO BID #14 TABLETS 01/04/24 [Rx Last Taken Unknown] Allergy/AdvReac Type Severity Reaction Status Date / Time sulfamethoxazole Allergy SORES IN Verified 01/03/24 23:07 [From ] MOUTH trimethoprim [From ] Allergy SORES IN Verified 01/03/24 23:07 MOUTH Surgical History History of tonsillectomy and adenoidectomy Hx laparoscopic cholecystectomy Hx of cystoscopy S/P hysterectomy Social History Smoking Status: Never smoker ROS ROS ED Constitutional Constitutional ED: Reports fever(s); Denies chills Eyes Eyes: Denies blurry vision or change in vision ENT ENT ED: Denies rhinorrhea or sore throat Cardiovascular Cardiovascular: Denies chest pain or palpitations Respiratory/Chest Respiratory/Chest: Denies cough or dyspnea Gastrointestinal Gastrointestinal: Reports abdominal pain and nausea; Denies vomiting Genitourinary Genitourinary ED: Reports dysuria and urinary frequency; Denies hematuria Musculoskeletal Musculoskeletal: Reports back pain; Denies neck pain Integumentary Denies abscess or rash Neurologic Neurologic: Reports headache(s); Denies weakness Allergic/Immunologic Allergic/Immunologic ED: Denies mouth swelling or urticaria EXAM Physical Exam Const Vital Signs: 01/03/24 23:04 01/03/24 23:23 01/04/24 01:04 Temperature 99 F Temperature Source Oral Pulse Rate 107 H 87 Respiratory Rate 16 16 Blood Pressure 204/117 H 189/109 H 152/95 H Blood Pressure Mean 146 135 114 Pulse Ox 94 92 Oxygen Delivery Method Room Air Room Air 01/04/24 03:00 01/04/24 05:00 Temperature Temperature Source Pulse Rate 88 83 Respiratory Rate 18 16 Blood Pressure 154/96 H 148/90 H Blood Pressure Mean 115 109 Pulse Ox 92 94 Oxygen Delivery Method Room Air Room Air Positive well nourished, well developed and obese General Appearance ED: well developed and NAD Nutritional Appearance: obese HEENT Reports moist mucous membranes Neck supple and no JVD Resp normal respiratory effort and clear to auscultation bilaterally Cardio regular rhythm Rate: tachycardic GI non-distended Palpation: soft and tender LLQ, LUQ and suprapubic Back/Spine General Back: CVA tenderness left Neuro oriented x3, CN's II-XII intact bilaterally and no sensory deficits noted Sensorium / Orientation: alert Motor Exam: strength 5/5 throughout MDM MDM MDM Narrative Medical decision making narrative: Differential diagnosis includes ureteral calculus, pyelonephritis, urinary tract infection, diverticulitis, and gastroenteritis. Urinalysis will be obtained to assess for urinary tract infection and hematuria. CBC will be obtained to assess for leukocytosis and anemia. Comprehensive metabolic profile will be obtained to assess for hepatic function, renal function, and electrolyte abnormality. CT scan of the abdomen pelvis will be obtained to assess for ureteral calculus, bowel obstruction, perforation. Urine culture will be obtained to assess for urinary tract infection. Lab Data Attestation: I reviewed the patient's lab results. Lab results narrative: Urinalysis was reviewed. There are positive nitrates and leukocyte esterase of 500. There are 25-50 white blood cells and 10-25 red blood cells. There are also 10-25 squamous epithelial cells. There is 1+ yeast. There are no bacteria seen. CBC was reviewed and was within normal limits. Comprehensive metabolic profile was reviewed. BUN was slightly elevated at 23 and creatinine was 1.54. These are slightly increased from previous result. Labs: Laboratory Results - last 24 hr 01/03/24 23:45 WBC 7.5 RBC 5.39 Hgb 12.7 Hct 41.7 MCV 77.4 L MCH 23.6 L MCHC 30.5 L RDW Std Deviation 43.4 RDW Coeff of Gregory 15.5 H Plt Count 176 MPV 11.5 Immature Gran % (Auto) 0.500 Neut % (Auto) 69.3 Lymph % (Auto) 17.3 L [place] % (Auto) 11.3 H Eos % (Auto) 1.2 Baso % (Auto) 0.4 Absolute Neuts (auto) 5.2 Absolute Lymphs (auto) 1.30 Nucleated RBC % 0 Sodium 141 Potassium 3.5 Chloride 109 H Carbon Dioxide 28.0 Anion Gap 4 L BUN 23 H Creatinine 1.54 H Estim Creat Clear Calc 86.73 Est GFR (MDRD) Af Amer 49 L Est GFR (MDRD) Non-Af 40 L BUN/Creatinine Ratio 14.9 Glucose 106 Calcium 11.0 H Total Bilirubin 0.60 AST 23 ALT 30 Alkaline Phosphatase 114 Total Protein 8.0 Albumin 3.9 Globulin 4.1 Albumin/Globulin Ratio 1.0 Urine Color Yellow Urine Clarity Clear Urine pH 7.0 Ur Specific [place] 1.010 Urine Protein 30 H Urine Glucose (UA) Normal Urine Ketones Negative Urine Occult Blood 250 H Urine Nitrite Positive H Urine Bilirubin Negative Urine Urobilinogen Normal Ur Leukocyte Esterase 500 H Urine RBC 10-25 SEEN Urine WBC 25-50 SEEN Ur Squamous Epith Cells 10-25 SEEN Calcium Oxalate Crystal 0 SEEN Uric Acid Crystals 0 SEEN Triple Phos Crystals 0 SEEN Other Crystals 0 SEEN Amorphous Sediment 0 SEEN Urine Bacteria 0 SEEN Hyaline Casts 0 SEEN Fine Granular Casts 0 SEEN Coarse Granular Casts 0 SEEN Waxy Casts 0 SEEN RBC Casts 0 SEEN WBC Casts 0 SEEN Urine Mucus 0 SEEN Urine Trichomonas 0 SEEN Urine Yeast 1+ Radiography Diagnostic Testing: Clinical Impression(s) from Imaging Studies Abdomen/Pelvis CT 01/04/24 02:12 IMPRESSION: There are bilateral kidney stones, the largest is in the left kidney measuring 19 mm. There is a left ureter stent in good position. There is residual mild left hydronephrosis. Electronically Signed: Franki Quiroz MD at 3:57 EST , CT scan of the abdomen pelvis was obtained. There are bilateral renal calculi. The left ureteral stent is in good position. There is mild left hydronephrosis. There is no other acute abnormality noted. This was interpreted by the radiologist was also independently reviewed by myself. Treatment and Re-Evaluation :: Patient was given IV fluids, morphine, and Zofran. Patient is feeling better on reevaluation. Patient was given a dose of Rocephin here. Patient was given a prescription for Cipro. Patient was instructed to follow-up with her urologist and primary care physician in 3 to 5 days. Patient understood and was agreeable with the plan. All questions were answered. Discharge Plan Triage Chief Complaint: Complaint ED Provider: Maninder Mccarty Dx/Rx/DC Orders Clinical Impression: Urinary tract infection, Bilateral nephrolithiasis Instructions: ED Pyelonephritis, Female (Adult) Prescriptions: New ciprofloxacin HCl [ciprofloxacin HCl] 500 mg tablet 500 mg PO BID Qty: 14 0RF No Action calcium carbonate 600 MG tablet 600 mg PO DAILY metformin 1,000 MG tablet 1,000 mg PO BIDCM Hold Instructions: Resume on 10/26/23. multivitamin Tablet 1 tab PO DAILY magnesium oxide 420 mg tablet 420 mg PO DAILY acetaminophen 325 mg Tablet 1,000 mg PO Q8H PRN (Reason: Pain 1-10 Or Fever) Qty: 0 0RF ibuprofen 200 mg capsule 600 mg PO DAILY PRN (Reason: pain) phenazopyridine [Pyridium] 200 mg tablet 200 mg PO TID PRN PRN (Reason: Bladder Spasms) 7 Days Qty: 30 0RF oxycodone-acetaminophen [Percocet] 5-325 mg tablet 1 tab PO Q8H PRN (Reason: pain) 5 Days Qty: 15 0RF cephalexin [cephalexin] 500 mg capsule 500 mg PO Q12 3 Days Qty: 6 0RF Primary Care Provider: Pedro Malik Referrals: Kenzie Simmons MD [Med Staff - Active Staff] - 3-5 Days Pedro Malik MD [Primary Care Provider] - 3-5 Days Disposition Disposition: Home, Self Care
[2024-01-04 00:07] LABS: AST(SGOT) 23 U/L (15-37); Alanine Aminotransfer ALT/SGPT 30 U/L (13-56); Albumin, Serum 3.9 g/dL (3.2-5.0); Alkaline Phosphatase 114 U/L (45-117); Anion Gap 4 (5-15); BUN 23 mg/dL (7-18); BUN/Creat Ratio 14.9 RATIO (10-20); Chloride 109 mmol/L (98-107); Creatinine, Serum 1.54 mg/dL (0.55-1.02); EST Glomerular Filtration Rate 40 mL/min (>60); Est Glom Filt Rate - Afr Amer 49 mL/min (>60); Estimated Creatinine Clearance 86.73 ml/min; Globulin 4.1 g/dL (2.2-4.2); Glucose 106 mg/dL (74-106); Potassium 3.5 mmol/L (3.5-5.1); Sodium Level 141 mmol/L (136-145)
[2024-01-04 00:27] LABS: Absolute Neutrophil Count 5.2 X10^3/uL (2.0-7.7); Basophil# 0.03 X10^3/uL; Basophil% 0.4 % (0-1); Eosinophil# 0.09 X10^3/uL; Eosinophils% 1.2 % (0-5); Hematocrit 41.7 % (37-47); Hemoglobin 12.7 g/dL (12.0-15.0); Lymphocyte % 17.3 % (19-41); Mean Corp Hgb Conc 30.5 g/dL (32-36); Mean Corpuscular Hgb 23.6 pg (27.0-32.0); Mean Corpuscular Volume 77.4 fL (81-99); Mean Platelet Vol. 11.5 fl (6.2-12.0); Monocyte# 0.85 X10^3/uL; Monocyte% 11.3 % (0-10); NRBC Flagged by Analyzer 0 % (0-5); Neutrophil # 5.19 X10^3/uL (2.7-7.7); Neutrophil % 69.3 % (47-70); Platelet Count 176 K/mm3 (150-450); RBC Distribution Width CV 15.5 % (11.6-14.6); RBC Distribution Width SD 43.4 fl (35.1-43.9); Red Blood Count 5.39 M/mm3 (4.2-5.4); White Blood Count 7.5 K/mm3 (4.4-11.0)
[2024-01-04 01:04] VITALS: BP 152/95; PULSE 87; RESP 16; O2SAT 92
--- NOTE | 2024-01-04 02:12 | CT_ITS ---
INDICATION: Left flank pain EXAMINATION: CT ABDOMEN AND PELVIS WITHOUT CONTRAST - CT Abdomen And Pelvis W/O Contrast Injection TECHNIQUE: Helically acquired images were obtained of the abdomen and pelvis without oral or IV contrast. A radiation dose optimization technique was used for this scan. IV Contrast dosage and agent: None. Oral contrast: None. RADIATION DOSAGE (If Supplied By Facility): CTDIvol = ( 24.18 ) mGy, DLP = ( 1250.39 ) mGycm COMPARISON: No relevant prior comparison study available FINDINGS: LOWER CHEST: Lung bases are clear. No cardiomegaly or pericardial effusion. LIVER: Homogeneous. No focal mass. No intra- or extrahepatic biliary ductal dilation. PANCREAS: No focal cystic or solid mass. SPLEEN: Normal size without focal cystic or solid mass. ADRENAL GLANDS: No nodules. KIDNEYS AND URETERS: There are bilateral kidney stones the largest is on the left side measuring 19 mm. There is a left ureter stent in good position. There is residual mild left hydronephrosis. PERITONEUM: No ascites or free air. No other fluid collection. BOWEL: No evidence of acute appendicitis. No stomach or bowel distension. No focal inflammatory change. LYMPH NODES: No enlarged mesenteric or retroperitoneal lymph nodes. VESSELS: Aorta is non-dilated. URINARY BLADDER: Unremarkable. REPRODUCTIVE ORGANS: No pelvic masses. ABDOMINAL WALL: No discrete abdominal or pelvic wall hernia. BONES: No lytic or blastic abnormality. CT/Abdomen/Pelvis without Cont IMPRESSION: There are bilateral kidney stones, the largest is in the left kidney measuring 19 mm. There is a left ureter stent in good position. There is residual mild left hydronephrosis. Electronically Signed: Franki Quiroz MD at 3:57 EST ,
--- OUTSIDE RECORDS SUMMARY | 2024-01-04 02:24 | XMS RPT_ITS | CCD ---
Author Name Unknown Address [address] [place] [address] Organization [facility] Care Team Providers Care [employer] Name Role Phone Amaury Ocampo Unavailable Unavailable [...] Consulting Unavailable PROVIDER, UNKNOWN Consulting Unavailable RAND VICKERS Admitting Unavailable VICKERS, RAND ALONZO Primary Care Unavailable RAND VICKERS Attending Unavailable JAQUEZ, OMEGA T Consulting Unavailable PROVIDER, UNKNOWN Consulting Unavailable PROVIDER, UNKNOWN Consulting Unavailable PROVIDER, UNKNOWN Consulting Unavailable VENU MDCANIELS Admitting Unavailable VENU MCDANIELS Primary Care Unavailable [...] BAKARI VELÁZQUEZ Consulting Unavailable CRISTIAN MCKEON Unavailable [phone] STACY JAQUEZ MD Unavailable Angela Maldonado RN Unavailable Unavailable ARNOLDO POOL MD Unavailable [phone] Kaleb MAJOR MD Unavailable Vitor CHOI MD Unavailable ALEXANDRO WYLIE Unavailable Unavailable Geraldine Trejo Unavailable Unavailable Bryon Berger Unavailable Unavailable Bon SEGURA, Shania Unavailable Unavailable Unavailable Unavailable Allergies Allergy Classification Reported Allergen(s) Allergy Type Date of Onset Reaction(s) Facility (1 source) Sulfamethoxazole / Trimethoprim Drug Allergy [facility] Repository (1 source) Iodine; Translations: [IODINE] Drug Allergy 3 [facility] Repository (1 source) Sulfamethoxazole; Translations: [SULFAMETHOXAZOLE] Drug Allergy 8 [facility] Repository (1 source) Sulfamethoxazole / Trimethoprim; Translations: [SULFAMETHOXAZOLE-TR IMETHOPRIM] Drug Allergy 3 [facility] Repository (1 source) Trimethoprim; Translations: [TRIMETHOPRIM] Drug Allergy 8 [facility] Repository (3 sources) Sulfacetamide Drug Allergy [facility], [facility].; [facility]. (3 sources) Sulfamethoxazole / Trimethoprim Drug Allergy [facility].; [facility]. Medications Current Medications Medication Drug Class(es) Dates Sig (Normalized) Sig (Original) metFORMIN hydrochloride 1000 mg oral tablet (3 sources) Biguanide take 1 tablet by jose twice daily METFORMIN HCL, 1000MG (Oral Tablet) ; 1 Two times daily (1000 MG) Completed/Discontinued Medications Medication Drug Class(es) Dates Sig (Normalized) Sig (Original) [id number] 200 actuat albuterol 0.09 mg/actuat metered dose inhaler (3 sources) beta2-Adrenergic Agonist Start: 03-27-2014 End: 04-06-2014 take 2 puff(s) by inhalation every six hours for wheezing PROAIR HFA, 108 (90 Base)MCG/ACT (Inhalation Aerosol Solution) ; 2 (two) puffs puffs q 6 hours for wheezing and shortness of breath for 10 days Quantity: 1 {Inhaler} Refills: 0 Ordered: 15-May-2014 Start: 27-Mar-2014 End: 06-Apr-2014 Status: Inactive amoxicillin 500 mg oral capsule (3 sources) Penicillin-class Antibacterial Start: 11-20-2016 End: 02-19-2023 amoxicillin 500 mg capsule ; 1 (one) Capsule three times daily for 0 days Quantity: 42 {Capsule} Refills: 0 Ordered: 19-Feb-2023 COLTON Ordoñez Start: 20-Nov-2016 End: 19-Feb-2023 Status: Inactive Comments: medication to be dispensed in office Problems Active Problems Problem Classification Problem Date Documented Date Episodic/Chronic Administrative/social admission (6 sources) Issue of repeat prescriptions 11-18-2010 Episodic Allergic reactions (2 sources) Allergy status to other antibiotic agents status; Translations: [Allergy status to other antibiotic agents status] Onset: 06-21-2018 Episodic Calculus of urinary tract (2 sources) Calculus of kidney; Translations: [Calculus of ureter] Onset: 03-24-2023 Episodic Cancer of uterus (5 sources) Malignant neoplasm of endometrium; Translations: [Endometrial carcinoma] Onset: 05-01-2018 06-09-2018 Chronic Past or Other Problems Problem Classification Problem Date Documented Date Episodic/Chronic Abdominal pain (1 source) Flank pain Onset: 02-23-2023 Episodic Pneumonia (except that caused by tuberculosis or sexually transmitted disease) (3 sources) Pneumonia (except that caused by tuberculosis or sexually transmitted disease) 03-28-2014 Unclassified (3 sources) Fever - The onset of the fever [...] the fever. Pt had hysterectomy. 02-19-2023 Unclassified (3 sources) !Patient notification of lab results - Dr. Jaquez. The test(s) that you had done were/was a sleep study. Your tests showed the following abnormalities: sleep apnea which is best treated with CPAP set at 15 cm H2O . You should call our office for a new prescription. 01-30-2019 Unclassified (3 sources) cough - The onset of the cough has been acute and has been occurring for 2 weeks. There has been no associated fever, runny nose or sore throat. Note for cough : Pt said she does have a lot of sinus pressure and the cough is worse at night.. 08-20-2016 Unclassified (3 sources) !Patient notification of lab results 1 - Korkyaus. The test(s) that you had done were/was [...] your symptoms do not improve. 03-29-2014 Unclassified (3 sources) !Patient notification of lab results 1 - Wisam. The test(s) that you had done were/was an iron, TIBC, B12 and folate. Your tests showed the following abnormalities: low iron . Please adjust your therapy by adding Ferrous sulfate 325 mg 3x/day and rech iron/TIBC in 1 month. 03-29-2014 Unclassified (3 sources) cough - The onset of the cough has been acute and has been occurring in a persistent pattern for 6 days. The cough is characterized as productive of mucoid sputum. The symptoms have been associated with fever and headache. Note for cough : pt also c/o burning with urination. See urine results. Here for exam. 03-27-2014 Unclassified (3 sources) recheck - other illness (WARTS ON HANDS. CRYO I MONTH AGO.). 01-12-2011 Unclassified (3 sources) Warts.. - The lesions are located on the left hand (3RD DIGIT) and right hand (THUMB AND 3RD DIGIT). The patient describes this as worsening. 12-01-2010 Unclassified (2 sources) Skin lesion - Note for Skin lesion : On the righ thumb. 11-04-2010 Unclassified (2 sources) [ADDITIONAL REASON] Sore throat - Note for Sore throat : Has been occuring for a few days. No cough. 11-04-2010 Unclassified (1 source) Sore throat - Note for Sore throat : Has been occuring for a few days. No cough. 11-04-2010 Unclassified (1 source) [ADDITIONAL REASON] Skin lesion - Note for Skin lesion : On the righ thumb. 11-04-2010 Results Test Name Value Interpretation Reference Range Facil ity Vital Signs Date Time Vital Sign Value Performing Clinician Marva litlisa 02-19-2023 09:28-0400 Body height 165.1 cm Brii Ordoñez RN [facility] [place], [employer] [facility], [facility]. 02-19-2023 09:28-0400 Body mass index (BMI) [Ratio] 67.33 kg/m2 Brii Ordoñez RN [facility] [place], [employer] [facility], [facility]. 02-19-2023 09:28-0400 Body surface area Derived from formula 2.67 m2 Brii Ordoñez RN [facility] [employer] [facility] [place], [employer] [facility], [facility]. 02-19-2023 09:28-0400 Body temperature 98.8 [degF] Brii Ordoñez RN [facility] [place] [place], [employer]. Encounters Encounter Date Encounter Type Care Provider Facility Start: 05-26-2023 Evaluation and management of inpatient OMEGA JAQUEZ Facility:[id number] Start: 04-29-2023 ambulatory OMEGA JAQUEZ Facility :[id number] Start: 04-08-2023 End: 04-08-2023 ambulatory BAKARI VELÁZQUEZ Facility:[id number] Start: 03-24-2023 End: 03-24-2023 ambulatory BAKARI VELÁZQUEZ Facility:[id number] Start: 02-23-2023 End: 02-25-2023 Evaluation and management of inpatient NAE BILLINGSLEY Facility:[id number] Start: 02-23-2023 End: 02-23-2023 Emergency department patient visit NAE BILLINGSLEY Facility:[id number] Start: 02-22-2023 End: 02-23-2023 Emergency department patient visit NAE RIVERA [facility] Start: 02-22-2023 ambulatory RAND VICKERS [facility] Start: 02-22-2023 End: 02-22-2023 Medication Refill/Order CRISTIAN TAYLOR ASSISTANT CLINICAL NURSE MANAGER-C Work Phone: [facility] [employer]. Start: 02-19-2023 End: 02-24-2023 ambulatory CRISTIAN TAYLOR COTTON SAMPLER-PATIENT ACCOUNT LIAISON Facility:A Start: 02-19-2023 End: 02-19-2023 Office outpatient visit 10 minutes CRISTIAN TAYLOR ASSISTANT CLINICAL NURSE MANAGER-C Work Phone: [employer] Start: 11-27-2022 End: 11-27-[address] [facility] Start: 01-30-2019 End: 01-30-2019 Historical Summary CRISTIAN TAYLOR ASSISTANT CLINICAL NURSE MANAGER-C Work Phone: [email or web address] Start: 10-27-2018 End: 10-27-2018 Historical Summary CRISTIAN TAYLOR ASSISTANT CLINICAL NURSE MANAGER-C Work Phone: [employer]. Start: 07-13-2018 End: 07-13-2018 Historical Summary CRISTIAN MELENDEZER ASSISTANT CLINICAL NURSE MANAGER-C Work Phone: [employer] Start: 06-21-2018 Patient encounter Amaury Ocampo [facility] Start: 06-14-2018 Patient encounter Amaury Ocampo [facility] Start: 06-09-2018 End: 06-09-2018 Historical Summary CRISTIAN TAYLOR ASSISTANT CLINICAL NURSE MANAGER-C Work Phone: [employer] [facility] [employer]. Start: 06-01-2018 End: 06-01-2018 Historical Summary CRISTIAN TAYLOR ASSISTANT CLINICAL NURSE MANAGER-C Work Phone: [employer]. Start: 06-01-2018 Patient encounter Amaury Ocampo [facility] Start: 11-20-2016 End: 11-20-2016 Office outpatient visit 10 minutes CRISTIAN TAYLOR ASSISTANT CLINICAL NURSE MANAGER-C Work Phone: [facility] [employer] Start: 08-20-2016 End: 08-20-2016 Office outpatient visit 10 minutes CRISTIAN TAYLOR ASSISTANT CLINICAL NURSE MANAGER-C Work Phone: [employer]. Start: 11-20-2015 End: 11-20-2015 Lab Only CRISTIAN TAYLOR ASSISTANT CLINICAL NURSE MANAGER-C Work Phone: [employer]. Start: 03-29-2014 End: 03-29-2014 Follow-up encounter CRISTIAN TAYLOR ASSISTANT CLINICAL NURSE MANAGER-C Work Phone: [facility] [email or web address] Start: 03-29-2014 End: 03-29-2014 Results Review CRISTIAN TAYLOR ASSISTANT CLINICAL NURSE MANAGER-C Work Phone: [facility] [employer]. Start: 03-28-2014 End: 03-28-2014 Patient encounter procedure CRISTIAN TAYLOR ASSISTANT CLINICAL NURSE MANAGER-C Work Phone: [employer]. Start: 03-27-2014 End: 03-27-2014 Patient encounter procedure CRISTIAN TAYLOR ASSISTANT CLINICAL NURSE MANAGER-C Work Phone: [employer] [facility] [employer] Start: 03-27-2014 End: 03-27-2014 Patient encounter procedure CRISTIAN MELENDEZER ASSISTANT CLINICAL NURSE MANAGER-C [facility] Start: 10-18-2013 End: 10-18-2013 Results Review CRISTIAN TAYLOR ASSISTANT CLINICAL NURSE MANAGER-C [facility] Start: 09-01-2013 End: 09-01-2013 Results Review CRISTIAN TAYLOR ASSISTANT CLINICAL NURSE MANAGER-C Work Phone[facility] Start: 12-30-2012 End: 12-30-2012 Results Review CRISTIAN TAYLOR ASSISTANT CLINICAL NURSE MANAGER-C [facility] Start: 05-21-2011 End: 05-21-2011 Annotation/Addendum CRISTIAN TAYLOR ASSISTANT CLINICAL NURSE MANAGER-C [facility] Start: 05-20-2011 End: 05-20-2011 Annotation/Addendum CRISTIAN TAYLOR ASSISTANT CLINICAL NURSE MANAGER-C [facility] Start: 01-12-2011 End: 01-12-2011 Patient encounter procedure CRISTIAN TAYLOR ASSISTANT CLINICAL NURSE MANAGER-C [facility] Start: 01-07-2011 End: 01-07-2011 Historical Summary CRISTIAN TAYLOR ASSISTANT CLINICAL NURSE MANAGER-C [facility] Start: 12-01-2010 End: 12-01-2010 Patient encounter procedure CRISTIAN TAYLOR ASSISTANT CLINICAL NURSE MANAGER-C [facility] Start: 11-18-2010 End: 11-18-2010 Medication Refill/Order CRISTIAN MELENDEZER ASSISTANT CLINICAL NURSE MANAGER-C [facility] Start: 11-17-2010 End: 11-17-2010 Medication Refill/Order CRISTIAN TRANTTER ASSISTANT CLINICAL NURSE MANAGER-C [facility] Start: 11-04-2010 End: 11-04-2010 Patient encounter procedure CRISTIAN TAYLOR ASSISTANT CLINICAL NURSE MANAGER-C [facility] Start: 11-04-2010 End: 11-04-2010 Historical Summary CRISTIAN TAYLOR ASSISTANT CLINICAL NURSE MANAGER-C [facility] Procedures Date Procedure Procedure Detail Performing Clinician Start: 02-23-2023 Urinalysis NAE PETERSON Plan of Treatment Date Care Activity Detail Author Start: 11-20-2016 Patient Education SINUSITIS Indication: Acute sinusitis, recurrence not specified, unspecified location Start: 20-Nov-2016 Instruction Type: Patient Education [facility] [place]; [facility] [place] Start: 08-20-2016 Patient Education Pneumonia *: coughing Indication: Atypical pneumonia Start: 20-Aug-2016 Instruction Type: Patient Education [facility] [place]; [facility] [place] Start: 04-29-2014 Immunoelectrophoresis serum [facility] [place]; [facility] [place]. Start: 04-29-2014 Assay of iron [facility] [place]; [facility] [employer]. Start: 04-29-2014 Blood count complete auto&auto difrntl wbc [facility]; [facility] [place]. Start: 03-27-2014 Chest x-ray X-RAY CHEST- TWO VIEWS - AP/LL ([id number]) Start: 27-Mar-2014 Intent Comments: Please call result to [place] office [phone] this afternoon (or cell Dr. Bryan [phone]) [facility]; [facility] [place] Payers Date Payer Category Payer Unknown [id number] 2022 Unknown 60 1986 Unknown [id number] 1986 Unknown [id number] 1986 Unknown [id number] Unknown Social History Date Type Detail Facility Alcohol Use: Alcohol Use: ; N o Alcohol Use. [facility]; [facility] Current Work/Study Status Current Work/St udy Status [facility]; [facility] Tobacco use: Tobacco use: ; N ever smoker. [facility]; [facility] Female [facility]; [facility] Work Phone: Never smoked tobacco [facility]; [facility] Work Phone: Clinical Notes 02-24-2023 to 05-27-2023 Note Date & Type Note Facility 05-27-2023 Note HNO ID: [id number] Author: Artis Paredes MD Service: General Internal [...] Drains, and Airways Line Duration Peripheral 05/26/23 [facility] Left Antecubital 20 Gauge 1 day DATA: [...] -- 05/26/23 1300 activity - mobilize patient (ut,oh) VTE Prophylaxis: VTE prophylaxis appropriate Disposition: To be determined Plan of care discussed with: Provider, RN, Patient SIGNATURE: Artis Paredse MD PATIENT NAME: Lorna Wylie DATE: May 27, 2023 TIME: 2:08 PM etx [id number] [facility] 05-26-2023 Note HNO ID: [id number] Author: Bertin Delgado RPh Service: ? Author [...] identified: No barriers noted Preferred outpatient pharmacy: [facility] [address] [place] [address] - [address] - [phone] [address] [facility] Allergies: Sulfamethoxazole-Tr* Hives, Unknown Iodine [...] Facility-Administered Medications: None Bertin Delgado RPh 05/26/2023 [facility] 04-29-2023 Note HNO ID: [id number] Author: SERG Franco) Service: Radiology Author Type: Technologist Type: Progress [...] RT Salvador(R) April 29, 2023 12:06 PM [facility] 04-28-2023 Note HNO ID: [id number] Author: Karen Mcdonald RN Service: Nursing Author [...] Ensure Pre-Surgery (given by AMADOR or your ), fruit juice without pulp (apple/cranberry), clear tea, [...] directed. Bring copy of Living Will/Power of Cnc Lathe Programmer. Do not smoke or chew. If you [...] the Surgery Center. UPON ARRIVAL: Access to [facility] ([facility]) is located on [address] [employer] parking is available for your convenience from [...] instructions for the morning of your procedure. [facility] 04-27-2023 Note HNO ID: [id number] Author: Marnie Dong APRN.GONZALO Service: ? Author [...] instructions for the morning of your procedure. [facility] 04-08-2023 Note HNO ID: [id number] Author: Bakari Velázquez MD Service: ? Author Type: Physician Type: Procedures Filed: 04/08/2023 10:10 AM Note Text: CYSTOSCOPY/stent removal- PROCEDURE NOTE: Cysto/stent remove-[id number] Dx:[id number] Lorna Wylie is a 37 year old female who presents for a cystoscopy and stent removal Pt ID verified with patient: yes Procedure verified with patient: cystoscopy/stent remove-yes Procedure confirmed with physician and end user support specialist: yes Special equipment-cystoscope and grasping forceps [...] progress note for plans Bakari Velázquez MD [facility] 04-08-2023 Note HNO ID: [id number] Author: RT Ariane(R) Service: Radiology Author Type: [...] RT Ariane(R) April 08, 2023 9:18 AM [facility] 03-24-2023 Note HNO ID: [id number] Author: Marisol Zafar RN Service: Nursing Author Type: Registered Nurse Type: Nursing Progress Note Filed: 03/24/2023 2:47 PM Note Text: Procedural site to Left flank from ESWL slightly reddened [facility] 03-24-2023 Note HNO ID: [id number] Author: Candi Subramanian APRN.CRNA Service: ? Author Type: Nurse Cashier Wrapper Type: Anesthesia Procedure Notes Filed: 03/24/2023 11:36 AM Note Text: ANESTHESIOLOGY PROCEDURE NOTE Airway General Information Procedure Start Time/Medication Administration: 03/24/2023 11:20 AM Patient location during procedure: OR Timeout Performed Pre-procedure: timeout performed Consent Obtained: Yes Patient identity confirmed: arm band Staffing Anesthesiologist: Melvin Casarez DO HAT AND CAP PARTS CUTTER HAND: Candi Subramanian APRN.HAT AND CAP PARTS CUTTER HAND Performed by: anesthesiologist Indications and Patient Condition Indications for airway management: anesthesia and airway protection Preoxygenated: yes anesthesia circuit Patient position: sniffing Method: asleep Cricoid Pressure: Yes Manual In-Line Stabilization: Yes Difficult Mask: No Airway Accessory: oral airway Final Airway Details Final airway type: endotracheal airway Final Endotracheal Airway: ETT Cuffed: yes Successful intubation technique: video laryngoscopy Devices used: Mieple Endotracheal tube insertion site: oral Blade: Heather [...] March 24, 2023 TIME: 11:35 AM CSN: [id number] [facility] 03-23-2023 Note HNO ID: [id number] Author: Michael Tuttle RN Service: Nursing Author [...] directed. Bring copy of Living Will/Power of Cnc Lathe Programmer. Do not smoke or chew. If you [...] the Surgery Center. UPON ARRIVAL: Access to [facility] (the glass building) is located on [address] [employer] parking is available for your convenience from [...] time are permitted in your preoperative room. [facility] 03-23-2023 Note HNO ID: [id number] Author: Marnie Dong APRN.CNP Service: ? Author Type: Nurse Practitioner Type: [...] instructions for the morning of your procedure. [facility] 02-28-2023 Note . MICRO - Microbiology PROCEDURE: [...] Locations *1: This test was performed at: [address] ([place]) 02-24-2023 Note . MICRO - Microbiology PROCEDURE: [...] Locations *1: This test was performed at: [facility], [address] [place] [address], [facility] , [facility] ([place]) 02-24-2023 Note HNO ID: [id number] Author: Ismael Lofton DO Service: Hospital Medicine [...] infusion 5-30 mL/hr INTRAVENOUS CONTINUOUS Gustavo Rose APRN.YOUSIF lactated ringers iv infusion 5-30 mL/hr INTRAVENOUS [...] 650 mg ORAL q 4 H PRN Bakari Velázquez MD 650 mg at 02/24/23 0802 [...] 37 [facility], fevers and chills. In the emergency department she was hypotensive. She was fluid resuscitated CT scan showed a 7 mm left proximal ureteral stone. She was transferred to [facility]. On arrival she was normotensive and did [...] cough She wears (more content not included)... [facility] 02-24-2023 Note HNO ID: [id number] Author: Gustavo Rose APRN.YOUSIF Service: Anesthesiology Author Type: Nurse Cashier Wrapper Type: Anesthesia Procedure Notes Filed: 02/24/2023 3:21 PM Note Text: ANESTHESIOLOGY PROCEDURE NOTE Airway General Information Procedure Start Time/Medication Administration: 02/24/2023 3:15 PM Patient location during procedure: OR Timeout Performed Pre-procedure: timeout performed Consent Obtained: Yes Patient identity confirmed: arm band Staffing Anesthesiologist: Efren Cade MD HAT AND CAP PARTS CUTTER HAND: Gustavo Rose APRN.HAT AND CAP PARTS CUTTER HAND Performed by: anesthesiologist Indications and Patient Condition [...] no Airway not difficult SIGNATURE: Gustavo Rose APRN.HAT AND CAP PARTS CUTTER HAND PATIENT NAME: Lorna Wylie DATE: February 24, 2023 TIME: 3:20 PM CSN: [id number] [facility] 02-24-2023 Note HNO ID: [id number] Author: GENNA Duque Service: Care Management Author Type: Echocardiography Tech Type: Care Mgt Progress Note Filed: 02/24/2023 [...] 24, 2023 TIME: 12:04 PM PAGER/CONTACT #: [facility] Summary Purpose Family History No Family History Records FoundNo Family History Records FoundNo Family History Records FoundNo Family History Records Found Advance Directives No Advanced Directives Records FoundNo Advanced Directives Records FoundNo Advanced Directives Records FoundNo Advanced Directives Records Found Additional Source Comments INFORMATION SOURCE (unrecogn ized section and content) DATE CREATED AUTHOR AUTHOR'S ORGANIZ ATION 03/01/2023 [facility] DATE CREATED AUTHOR AUTHOR'S ORGANIZ ATION 05/20/2023 [facility] DATE CREATED AUTHOR AUTHOR'S ORGANIZ ATION 05/28/2023 [facility] nter FOR RECORDS PERTAINING TO PATIENTS [...] BE BASED ON THE PRIMARY CLINICAL RECORDS. [employer] [facility]. provides no warranty or guarantee of the accuracy or completeness of information in this document.
[2024-01-04] MEDS: 0.9% Normal Saline (1000mL) 1,000 ML 1000 ML IV (02:28)
[2024-01-04] MEDS: Ondansetron 4 MG/2 ML Vial IV (02:28)
[2024-01-04] MEDS: Morphine 4 MG/ML Syringe IV (02:28)
[2024-01-04 03:00] VITALS: BP 154/96; PULSE 88; RESP 18; O2SAT 92
[2024-01-04] MEDS: Ceftriaxone 1 GM/50 ML BAG IV (04:45)
[2024-01-04 05:00] VITALS: BP 148/90; PULSE 83; RESP 16; O2SAT 94
[2024-01-04 05:17] VITALS: BP 148/90; PULSE 83; RESP 18; TEMP 36.6; O2SAT 93
== END 2024-01-04 05:23 | disposition home or self-care (01) ==
PROVIDERS: Emergency Provider Emergency Medicine; PCP Family Medicine; Visit Provider Emergency Medicine
DX: N13.6 Pyonephrosis (principal); E11.9 Type 2 diabetes mellitus without complications; R11.0 Nausea; E66.9 Obesity, unspecified; Z79.82 Long term (current) use of aspirin; Z79.899 Other long term (current) drug therapy
CPT/HCPCS: 74176; 80053; 81001; 85025; 87086; 96361; 96365; 96375; 99283; J7030; A4216; J2405

== ENCOUNTER → 2024-01-12 | Outpatient (CLI) | payer OTHER, SELFPAY ==
[2024-01-12 12:20] LABS: Hematocrit 41.6 % (37-47); Hemoglobin 13.1 g/dL (12.0-15.0); Mean Corp Hgb Conc 31.5 g/dL (32-36); Mean Corpuscular Hgb 24.3 pg (27.0-32.0); Mean Platelet Vol. 11.6 fl (6.2-12.0); Platelet Count 206 K/mm3 (150-450); RBC Distribution Width CV 14.7 % (11.6-14.6); RBC Distribution Width SD 40.6 fl (35.1-43.9); White Blood Count 11.4 K/mm3 (4.4-11.0)
[2024-01-12 12:46] LABS: Anion Gap 6 (5-15); BUN 19 mg/dL (7-18); BUN/Creat Ratio 12.6 RATIO (10-20); Calcium,Total 10.9 mg/dL (8.5-10.1); Chloride 108 mmol/L (98-107); Creatinine, Serum 1.51 mg/dL (0.55-1.02); EST Glomerular Filtration Rate 41 mL/min (>60); Est Glom Filt Rate - Afr Amer 50 mL/min (>60); Glucose 112 mg/dL (74-106); Potassium 3.7 mmol/L (3.5-5.1); Sodium Level 140 mmol/L (136-145)
== END | disposition home or self-care (01) ==
LOC: MTLAB 10:35
PROVIDERS: PCP Family Medicine; Referring Provider Urology; Visit Provider Urology
DX: N20.0 Calculus of kidney (principal)
CPT/HCPCS: 36415; 80048; 85027

== ENCOUNTER 2024-01-21 07:37 | Day surgery (SDC) | payer SELFPAY, OTHER ==
[2024-01-21 08:06] VITALS: BP 160/98; PULSE 90; RESP 18; TEMP 36.2; O2SAT 97; BMI 65.4
[2024-01-21] MEDS: Lactated Ringers 1,000 ML 15 ML IV (08:13)
[2024-01-21 08:34] LABS: Bedside Glucose 95 mg/dL (74-106)
[2024-01-21] MEDS: Cefazolin 3 GM in 0.9% Normal Saline (100mL Bag) 100 ML IV (08:45)
[2024-01-21 09:50] VITALS: BP 145/89; BP 160/98; PULSE 92; RESP 16; TEMP 36.2; O2SAT 95
--- NOTE | 2024-01-21 09:50 | DCINST_ITS ---
Discharge Instructions Diet Discharge Diet: No restrictions Activity Discharge Activity: Return to Normal Activity Dressing / Incision Call your doctor if you observe: Fever of 101 or Higher, Inability to urinate and Inability to have a bowel movement Follow Up Care Please Follow Up With: Kenzie Simmons MD When: The office will call to make follow-up arrangements. Test Results: Test results from this visit will be discussed in further detail at your follow- up appointment, if applicable. Discharge Plan Admission Attending Provider: Kenzie Simmons Primary Care Provider: Pedro Malik Discharge Orders/Prescriptions Prescriptions: New phenazopyridine [Pyridium] 200 mg tablet 200 mg PO TID PRN PRN (Reason: Bladder Spasms) 7 Days Qty: 30 0RF oxycodone-acetaminophen [Percocet] 5-325 mg tablet 1 tab PO Q8H PRN (Reason: pain) 3 Days Qty: 10 0RF cephalexin [cephalexin] 500 mg capsule 500 mg PO Q12 3 Days Qty: 6 0RF ondansetron 4 mg tablet,disintegrating 4 mg PO Q8H PRN (Reason: nausea and vomiting) Qty: 10 0RF Continued calcium carbonate 600 MG tablet 600 mg PO DAILY metformin 1,000 MG tablet 1,000 mg PO BIDCM Hold Instructions: Resume on 10/26/23. multivitamin Tablet 1 tab PO DAILY magnesium oxide 420 mg tablet 420 mg PO DAILY acetaminophen 325 mg Tablet 1,000 mg PO Q8H PRN (Reason: Pain 1-10 Or Fever) Qty: 0 0RF ibuprofen 200 mg capsule 600 mg PO DAILY PRN (Reason: pain) phenazopyridine [Pyridium] 200 mg tablet 200 mg PO TID PRN PRN (Reason: Bladder Spasms) 7 Days Qty: 30 0RF Referrals / Follow Up: Pedro Malik MD [Primary Care Provider] - Disposition Disposition (needs filled in before D/C Order can be placed): Home, Self Care
--- NOTE | 2024-01-21 09:53 | OP.PCM_ITS ---
Report of Operation Date of Procedure: 01/21/24 Pre-Operative Diagnosis: Left ureteral and renal stones Post-Operative Diagnosis: Same Surgery/Procedure Performed:: Cystoscopy, left ureteroscopy, holmium laser lithotripsy, stone basket extraction, left ureteral stent change Surgeon: Kenzie Simmons Type of Anesthesia: General Specimen's removed: Left ureteral stone fragments Description of Procedure: The patient is a 38-year-old female with a large left renal stone and several left ureteral calculi after undergoing left renal extracorporal shockwave lithotripsy. She presents for ureteroscopy with laser lithotripsy, stone removal and stent change. Informed consent was obtained. The patient was taken to the operating room and placed on the operating room table. Anesthesia monitored the head, neck, airway, IV access and vital signs throughout the case. Once anesthesia was appropriately administered, the patient was placed into dorsolithotomy position was prepped and draped in usual sterile fashion. The cystoscope was inserted through the urethra under direct visualization into the urinary bladder. The left ureteral stent was grasped and pulled to the urethral meatus. I was unable to intubate the stent with a Glidewire, so the Glidewire was passed alongside the stent which was then removed with a little bit of tension. At this time the semirigid ureteroscope was passed into the left ureter where multiple pieces of stones were identified. Holmium laser lithotripsy was performed and the fragments were removed with a stone basket. Of note, the distal aspect of where the stones were stuck was extremely edematous and there was some difficulty in passing the ureteroscope through this area. I did not feel it was safe to proceed with a ureteral access sheath for further removal of left renal stones. After all of the visible ureteral stones were removed, the safety wire was used for placement of a 6 Vietnamese 24 cm JJ stent. There was good positioning in the renal pelvis as well as the urinary bladder. The stone fragments were then emptied from the urinary bladder and sent for analysis. There are likely stone fragments that I could not retrieve from the bladder. The patient was then awakened and taken to the recovery room in good condition. There were no complications during the procedure. Grafts/Implants Used: 6 x 24 JJ stent Complications None Admit VTE Documentation VTE Present on Admission: Yes VTE Mechan Device Prophylaxis: SCD's VTE Pharm Prophylaxis ordered?: No Reason prophylaxis not ordered:: Treatment Not Indicated
[2024-01-21 09:55] VITALS: BP 135/93; BP 160/98; PULSE 92; RESP 16; O2SAT 92
[2024-01-21 10:00] VITALS: BP 140/88; BP 160/98; PULSE 90; RESP 16; O2SAT 95
[2024-01-21 10:15] VITALS: BP 147/88; BP 160/98; PULSE 91; RESP 16; TEMP 36.2; O2SAT 95
[2024-01-21 11:29] VITALS: BP 137/67; BP 160/98; PULSE 81; RESP 16; TEMP 36.8; O2SAT 93
== END 2024-01-21 12:00 | disposition home or self-care (01) ==
LOC: SDC 07:39 → AC 07:40
PROVIDERS: PCP Family Medicine; Referring Provider Urology; Visit Provider Urology
PROC: (CPT 52356; principal; 2024-01-21 08:55)
DX: N20.2 Calculus of kidney with calculus of ureter (principal); E11.9 Type 2 diabetes mellitus without complications; N39.0 Urinary tract infection, site not specified; I10 Essential (primary) hypertension; Z79.84 Long term (current) use of oral hypoglycemic drugs
CPT/HCPCS: 52356; 00873; 82360; 82962; J7120; J2405

== ENCOUNTER → 2024-02-04 | Outpatient (CLI) | payer SELFPAY, OTHER ==
--- NOTE | 2024-02-04 16:03 | CT_ITS ---
STUDY: CT ABDOMEN AND PELVIS WITHOUT CONTRAST REASON FOR EXAM: Female, 38 years old. LT URETUERALSTONE, HYDRONEPHROSIS RADIATION DOSAGE (If Supplied By Facility): CTDIvol = ( 24.18 ) mGy, DLP = ( 1304.78 ) mGycm TECHNIQUE: Transaxial images were obtained from the dome of the diaphragm to the symphysis pubis without oral contrast, and without intravenous contrast. Sagittal and coronal images were reconstructed. Individualized dose optimization techniques were used for this CT. COMPARISON: Comparison is made with prior study of January 04, 2024. FINDINGS: The visualized lung bases are unremarkable. The visualized portions of the heart are within normal limits. Normal liver. The patient is status post cholecystectomy. Normal spleen. Normal pancreas. Normal bilateral adrenal glands. Stable 1 cm nonobstructive calculus in the posterior lower pole calyx of the right kidney. Punctate calculus is also seen in the lower pole of the right kidney. A left-sided double-J stent catheter is seen. Proximal tip is in the left renal pelvis and the distal tip is in the urinary bladder. Stable 1.2 cm calculus in the lower pole calyx of the left kidney. 3 mm nonobstructive calculus in the midpole calyx of the left kidney as well as a 8 mm calculus in the upper pole calyx of the left kidney. No significant hydronephrosis seen. There is a small hiatal hernia. Normal small intestine. Normal colon. The appendix is visualized and appears normal. Normal abdominal aorta. Normal inferior vena cava. There is borderline retroperitoneal lymphadenopathy with enlarged nodes no greater than 10mm in the short axis diameter. Normal urinary bladder. There is absence of the uterus consistent with a prior hysterectomy. Normal abdominal wall. There are diffuse degenerative changes of the visualized lumbar spine. CT/Abdomen/Pelvis without Cont IMPRESSION: Stable bilateral intrarenal calculi. Status post left double-J stent catheter placement. No significant hydronephrosis is seen. Electronically Signed: Jameel Mckinney MD at 9:39 EDT ,
== END | disposition home or self-care (01) ==
PROVIDERS: PCP Family Medicine; Referring Provider Urology; Visit Provider Urology
DX: N20.1 Calculus of ureter (principal); N13.30 Unspecified hydronephrosis
CPT/HCPCS: 74176; 76000

== ENCOUNTER 2024-03-16 10:38 | Day surgery (SDC) | payer SELFPAY, OTHER ==
[2024-03-16] VITALS (7 sets, daily range): BP systolic 130–174; BP diastolic 76–106; PULSE 84–96; RESP 16; TEMP 36.1–36.4; O2SAT 94–100; BMI 70.4
--- NOTE | 2024-03-16 10:29 | PCM.OPRPT ---
Problems Associated Problem List Diagnoses (1) Kidney stones: Report of Operation Date of Procedure: 03/16/24 Pre-Operative Diagnosis: Left renal stones Post-Operative Diagnosis: Same Surgery/Procedure Performed:: Left renal extracorporal shockwave lithotripsy Surgeon: Kenzie Simmons Type of Anesthesia: General Specimen's removed: None Description of Procedure: The patient is a 38-year-old female with left renal stone fragments who presents for repeat shockwave lithotripsy. Informed consent has been obtained. The patient was taken to the operating room and placed on the lithotripsy table. Anesthesia monitored the head, neck, airway, IV access and vital signs throughout the case. Once anesthesia was appropriately administered, she was aligned with the machine. There were no ureteral stones seen along the length of the stent. The stone was visible with some difficulty and 3000 shocks were applied. The stones appeared to be further fragmented at the conclusion of the case. She was awakened and taken to the recovery room in good condition. There were no complications during this procedure. Grafts/Implants Used: None Complications None Admit VTE Documentation VTE Present on Admission: Yes VTE Mechan Device Prophylaxis: SCD's VTE Pharm Prophylaxis ordered?: No Reason prophylaxis not ordered:: Treatment Not Indicated
--- NOTE | 2024-03-16 10:30 | DCINST_ITS ---
Discharge Instructions Diet Discharge Diet: No restrictions Activity Discharge Activity: Return to Normal Activity Dressing / Incision Call your doctor if you observe: Fever of 101 or Higher, Inability to urinate and Inability to have a bowel movement Follow Up Care Please Follow Up With: Kenzie Simmons MD When: In the office in 2 to 3 weeks with a KUB Test Results: Test results from this visit will be discussed in further detail at your follow- up appointment, if applicable. Discharge Plan Admission Attending Provider: Kenzie Simmons Primary Care Provider: Pedro Malik Instructions Print Language: Bhutanese Discharge Orders/Prescriptions Prescriptions: New oxycodone-acetaminophen [Percocet] 5-325 mg tablet 1 tab PO Q8H PRN (Reason: pain) 3 Days Qty: 10 0RF Continued calcium carbonate 600 MG tablet 600 mg PO DAILY metformin 1,000 MG tablet 1,000 mg PO BIDCM multivitamin Tablet 1 tab PO DAILY magnesium oxide 420 mg tablet 420 mg PO DAILY ibuprofen 200 mg capsule 600 mg PO DAILY PRN (Reason: pain) No Action cephalexin 500 mg capsule 500 mg PO Q12.TCU Patient Comments: stated on wednesday Referrals / Follow Up: Pedro Malik MD [Primary Care Provider] - Disposition Disposition (needs filled in before D/C Order can be placed): Home, Self Care
[2024-03-16 11:13] LABS: Hemoglobin 12.5 g/dL (12.0-15.0); Mean Corp Hgb Conc 30.5 g/dL (32-36); Mean Corpuscular Hgb 24.1 pg (27.0-32.0); Platelet Count 209 K/mm3 (150-450); RBC Distribution Width CV 15.7 % (11.6-14.6); RBC Distribution Width SD 44.6 fl (35.1-43.9); Red Blood Count 5.19 M/mm3 (4.2-5.4)
[2024-03-16] MEDS: Lactated Ringers 1,000 ML 15 ML IV (11:32)
[2024-03-16 11:41] LABS: Anion Gap 4 (5-15); BUN 14 mg/dL (7-18); BUN/Creat Ratio 11.7 RATIO (10-20); Calcium,Total 10.1 mg/dL (8.5-10.1); Chloride 111 mmol/L (98-107); EST Glomerular Filtration Rate 54 mL/min (>60); Est Glom Filt Rate - Afr Amer 65 mL/min (>60); Estimated Creatinine Clearance 108.65 ml/min; Glucose 96 mg/dL (74-106); Potassium 3.6 mmol/L (3.5-5.1); Sodium Level 141 mmol/L (136-145)
[2024-03-16 11:41] LABS: Bedside Glucose 91 mg/dL (74-106)
--- NOTE | 2024-03-16 12:00 | HP.PCM_ITS ---
HPI - General General Date of Admission: 03/16/24 Date of Service: 03/16/24 Chief Complaint: left renal stones and pain [facility] Narrative TASIA EDWARDS, is a 38 F who presents for left renal stone management. Informed consent has been obtained. [facility] Medical History Left ureteral calculus Cancer Multiple thyroid nodules Non-smoker History of edema History of echocardiogram Diabetes CPAP (continuous positive airway pressure) dependence Kidney stones BMI 60.0-69.9, adult Home Medications ?Medication ?Instructions ?Recorded ?Last Taken ?Type calcium carbonate 600 mg PO DAILY SUPPLEMENT 05/19/18 03/10/24 History metformin 1,000 mg tablet 1,000 mg PO BIDCM DIABETES 05/19/18 03/15/24 History magnesium oxide 420 mg tablet 420 mg PO DAILY supplement 10/20/23 03/10/24 History multivitamin 1 tab PO DAILY health maintenance 10/20/23 03/15/24 History ibuprofen 200 mg capsule 600 mg PO DAILY PRN pain 12/06/23 03/15/24 History cephalexin 500 mg capsule 500 mg PO Q12.TCU 03/16/24 03/13/24 History Allergy/AdvReac Type Severity Reaction Status Date / Time sulfamethoxazole (From Allergy SORES IN Verified 03/16/24 11:10 Septra) MOUTH trimethoprim (From Septra) Allergy SORES IN Verified 03/16/24 11:10 MOUTH Surgical History Hx of cystoscopy History of tonsillectomy and adenoidectomy Hx laparoscopic cholecystectomy S/P hysterectomy Social History Smoking Status: Never smoker ROS Constitutional Constitutional: Reports systems reviewed and no addt'l complaints, except as documented Eyes Eyes: Reports systems reviewed and no addt'l complaints, except as documented ENT HEENT: Reports systems reviewed and no addt'l complaints, except as documented Cardiovascular Cardiovascular: Reports systems reviewed and no addt'l complaints, except as documented Respiratory/Chest Respiratory/Chest: Reports systems reviewed and no addt'l complaints, except as documented Gastrointestinal Gastrointestinal: Reports cramping Genitourinary Genitourinary: Reports abdominal discomfort and flank pain; Denies dysuria or hematuria Musculoskeletal Musculoskeletal: Reports systems reviewed and no addt'l complaints, except as documented Integumentary Integumentary: Reports systems reviewed and no addt'l complaints, except as documented Neurologic Neurologic: Reports systems reviewed and no addt'l complaints, except as documented Psychiatric Psychiatric: Reports systems reviewed and no addt'l complaints, except as documented Endocrine Endocrinology: Reports systems reviewed and no addt'l complaints, except as documented Hematologic/Lymphatic Hematologic/Lymphatic: Reports systems reviewed and no addt'l complaints, except as documented Allergic/Immunologic Allergic/Immunologic: Reports systems reviewed and no addt'l complaints, except as documented Vital Signs Vital Signs Vital Signs: 03/16/24 11:16 03/16/24 11:16 Temperature 97.1 F L Temperature Source Temporal Pulse Rate 93 Respiratory Rate 16 Respiratory Pattern Normal Blood Pressure 174/106 H Blood Pressure Mean 128 Blood Pressure Source Monitor Blood Pressure Position Sitting Blood Pressure Location Right Arm Pulse Ox 98 Oxygen Delivery Method Room Air Weight Weight: 186 kg Body Mass Index (BMI) 70.4 Physical Exam Const alert, oriented x3 and no apparent distress General Appearance: cooperative, comfortable, well kempt and well developed HEENT normocephalic, head/scalp atraumatic, hearing grossly normal bilaterally, external ears normal, external nose normal and moist oral mucous membranes Eyes General Eye: normal appearance of both eyes Neck supple General: normal visual inspection and trachea midline Lymph Lymphatic: no lymphedema noted Chest inspection of chest normal Resp normal respiratory effort, normal air movement, no retractions and no use of accessory muscles Cardio regular rate and regular rhythm GI soft to palpation, non-tender and non-distended GI Narrative: obese Extremity normal to inspection Skin no rashes or lesions noted, skin turgor normal, no jaundice, no petechiae and no mottling Neuro oriented x3 and CN's II-XII intact bilaterally Psych mental status grossly normal Results Lab / Micro Data 03/16/24 11:05 03/16/24 11:05 Labs: Laboratory Results - last 24 hr 03/16/24 11:05: WBC 6.0, RBC 5.19, Hgb 12.5, Hct 41.0, MCV 79.0 L, MCH 24.1 L, M CHC 30.5 L, RDW Std Deviation 44.6 H, RDW Coeff of Gregory 15.7 H, Plt Count 209, MPV 11.0, Sodium 141, Potassium 3.6, Chloride 111 H, Carbon Dioxide 26.0, Anion Gap 4 L, BUN 14, Creatinine 1.20 H, Estim Creat Clear Calc 108.65, Est GFR (MDRD) Af Amer 65, Est GFR (MDRD) Non-Af 54 L, BUN/Creatinine Ratio 11.7, Glucose 96, Calcium 10.1 03/16/24 11:06: POC Glucose 91 Assessment & Plan Assessment/Plan (1) Kidney stones: PLAN: Plan proceed with left renal extracorporeal shockwave lithotripsy
[2024-03-16] MEDS: Cefazolin 3 GM in 0.9% Normal Saline (100mL Bag) 100 ML IV (12:02)
[2024-03-16 14:07] LABS: Bedside Glucose 91 mg/dL (74-106)
== END 2024-03-16 15:10 | disposition home or self-care (01) ==
LOC: SDC 10:41 → AC 10:42
PROVIDERS: PCP Family Medicine; Referring Provider Urology; Visit Provider Urology
PROC: (CPT 50590; principal; 2024-03-16 11:50)
DX: N20.0 Calculus of kidney (principal); E11.9 Type 2 diabetes mellitus without complications; Z79.84 Long term (current) use of oral hypoglycemic drugs; Z87.442 Personal history of urinary calculi; Z90.49 Acquired absence of other specified parts of digestive tract
CPT/HCPCS: 50590; 00873; 80048; 82962; 85027; J7120; J2405

== ENCOUNTER 2024-03-22 09:44 | Emergency (ER) | payer OTHER, SELFPAY ==
[2024-03-22 09:45] VITALS: BP 171/102; PULSE 128; RESP 20; TEMP 37.1; O2SAT 98; O2SAT 99
[2024-03-22 09:57] VITALS: BMI 70.7
[2024-03-22 10:42] LABS: Absolute Lymphocyte Count 0.81 X10^3/uL (0.83-4.51); Absolute Neutrophil Count 7.8 X10^3/uL (2.0-7.7); Basophil# 0.03 X10^3/uL; Basophil% 0.3 % (0-1); Eosinophil# 0.03 X10^3/uL; Eosinophils% 0.3 % (0-5); Hematocrit 39.9 % (37-47); Hemoglobin 12.4 g/dL (12.0-15.0); Lymphocyte # 0.81 X10^3/ul (0.83-4.51); Lymphocyte % 8.2 % (19-41); Mean Corp Hgb Conc 31.1 g/dL (32-36); Mean Corpuscular Hgb 24.3 pg (27.0-32.0); Mean Corpuscular Volume 78.2 fL (81-99); Mean Platelet Vol. 11.2 fl (6.2-12.0); Monocyte# 1.18 X10^3/uL; Monocyte% 11.9 % (0-10); NRBC Flagged by Analyzer 0 % (0-5); Neutrophil # 7.81 X10^3/uL (2.7-7.7); Neutrophil % 78.7 % (47-70); Platelet Count 168 K/mm3 (150-450); RBC Distribution Width CV 15.5 % (11.6-14.6); RBC Distribution Width SD 43.8 fl (35.1-43.9); White Blood Count 9.9 K/mm3 (4.4-11.0)
[2024-03-22 10:44] LABS: Bacteria 0 SEEN /hpf (None Seen); Mucous, Urine 0 SEEN /hpf (<or=2+)
--- NOTE | 2024-03-22 10:44 | CT_ITS ---
STUDY: CT ABDOMEN AND PELVIS WITH CONTRAST REASON FOR EXAM: Female, 38 years old. lithotripsy and stent 03/16, fever today, diabetes, hysterectomy, cholecystectomy RADIATION DOSAGE (If Supplied By Facility): CTDIvol = ( 31.43 ) mGy, DLP = ( 1972.55 ) mGycm TECHNIQUE: Transaxial images were obtained from the dome of the diaphragm to the symphysis pubis without oral contrast. ml of contrast was administered. Sagittal and coronal images were reconstructed. Individualized dose optimization techniques were used for this CT. COMPARISON: None. FINDINGS: * Left kidney: Interval placement of a left internal ureteral stent since the February 04, 2024 study. The coiled proximal portion of the ureteral stent is retracted 2.42 cm from the UPJ into the proximal one third ureter and should be repositioned into the pelvic or calyceal regions determined by the urologist. * Moderate left hydronephrosis is present which is a new finding when compared to the February 04, 2024 study * Previously seen cluster of stones at the left UPJ is no longer present * Previously seen small calyceal stones in the upper mid pole of the left kidney are no longer present * Redemonstration of a 1.54 cm stone in the lower pole calyx of the left kidney * Mild left perinephric and periureteral inflammatory stranding and edema is present. * Right kidney: Redemonstration of multiple scattered calyceal stones without hydronephrosis. The largest stone on the right measures 9.5 mm in diameter. Cortical defect at the posterior aspect and inferior pole of the right kidney redemonstrated and likely due to prior trauma or similar entity. The visualized lung bases are unremarkable. The visualized portions of the heart are within normal limits. Mildly enlarged fatty liver. There is non-visualization of the gallbladder, consistent with prior cholecystectomy. Redemonstration of mild splenomegaly at 15.33 cm. Normal pancreas. Normal bilateral adrenal glands. Normal visualized stomach. Normal small intestine. Normal colon. The appendix is visualized and appears normal. Normal abdominal aorta. Normal inferior vena cava. Normal retroperitoneum. Normal urinary bladder. Normal abdominal wall. There are diffuse degenerative changes of the visualized lumbar spine. CT/Abdomen/Pelvis W IV Cont ONLY IMPRESSION: 1. Left kidney: Interval placement of a left internal ureteral stent since the February 04, 2024 study. The coiled proximal portion of the ureteral stent is retracted 2.42 cm from the UPJ into the proximal one third ureter and should be repositioned into the pelvic or calyceal regions determined by the urologist. 2. Moderate left hydronephrosis is present which is a new finding when compared to the February 04, 2024 study Electronically Signed: Raceil Sue MD at 11:47 EDT ,
[2024-03-22 10:49] LABS: Color, Urine Yellow (Yellow); Glucose, Dipstick Normal (Normal); Ketone-Dipstick Negative (Negative); Leukocyte Esterase-Dipstick 500 /ul (Negative); Nitrite-Dipstick Positive (Negative); Occult Blood-Urine 150 /ul (Negative); Protein-Dipstick 30 mg/dl (Negative); Urine Bilirubin Dipstick Negative (Negative); Urine Clarity Sl. Cloudy (Clear); Urine Urobilinogen 1 mg/dl (Normal)
[2024-03-22] MEDS: 0.9% Normal Saline (1000mL) 1,000 ML 1000 ML IV (10:50)
[2024-03-22] MEDS: Ketorolac 15 MG/ML Vial IV (10:50)
[2024-03-22 10:52] VITALS: BP 171/102; PULSE 128; RESP 20; TEMP 37.1; O2SAT 99
[2024-03-22 10:57] LABS: Internal QC Validated? YES +Cl - CLEAR BKGD; International Normalized Ratio 1.2; Pregnancy, Urine Negative Negative
[2024-03-22 10:58] LABS: Partial Thromboplast Time 30.1 Seconds (24.1-36.2)
[2024-03-22 10:59] LABS: ALB/GLOB Ratio 0.8 RATIO (0.9-2.4); AST(SGOT) 26 U/L (15-37); Alanine Aminotransfer ALT/SGPT 33 U/L (13-56); Albumin, Serum 3.5 g/dL (3.2-5.0); Alkaline Phosphatase 109 U/L (45-117); Anion Gap 7 (5-15); BUN 16 mg/dL (7-18); BUN/Creat Ratio 12.1 RATIO (10-20); Calcium,Total 10.3 mg/dL (8.5-10.1); Chloride 108 mmol/L (98-107); Creatinine, Serum 1.32 mg/dL (0.55-1.02); EST Glomerular Filtration Rate 48 mL/min (>60); Est Glom Filt Rate - Afr Amer 58 mL/min (>60); Estimated Creatinine Clearance 99.14 ml/min; Globulin 4.6 g/dL (2.2-4.2); Glucose 138 mg/dL (74-106); Potassium 3.6 mmol/L (3.5-5.1); Protein, Total 8.1 g/dL (6.4-8.2); Sodium Level 141 mmol/L (136-145)
[2024-03-22 11:00] LABS: Red Blood Cells-Urine 5-10 SEEN /hpf (0-5); Squamous Epithelial Cells - UA 0-5 SEEN /hpf (5-10); White Blood Cells 10-25 SEEN /hpf (0-5)
[2024-03-22 11:07] VITALS: BP 102/70; PULSE 85; RESP 23; O2SAT 100
[2024-03-22 11:07] LABS: Lactic Acid 1.7 mmol/L (0.4-1.9)
--- NOTE | 2024-03-22 11:17 | EX.ED.DYSGE1 ---
HPI History of Present Illness Chief Complaint: Flank Pain Informant: patient Narrative Narrative: Patient is a 38-year-old female with history of bilateral kidney stones with currently with stent on the left in place. She most recently had shockwave lithotripsy with Dr. Simmons on 03/16/2024. Her symptoms been in place for the past 2 months per the patient. Patient is presenting with worsening pain in her left lower quadrant radiates to her back as well as a fever. She had a fever of 101.6 last night and again this morning. Last had ibuprofen last night. Also had some Pyridium last night. Is having some mild intermittent dysuria and hematuria. Was recently on a course of Keflex but finished the dose on Wednesday, 3 days ago. Patient states her symptoms been progressively worsening since then. She is also plaint of generalized weakness. Denies any associated nausea, vomiting, change in her bowel habits, body aches, cough or URI symptoms. States sometimes the pain is more severe such as last night but today is more mild. It started to complain of an associated headache however. No other complaints or current concerns reported at this time. [facility] Medical History Left ureteral calculus Cancer Multiple thyroid nodules Non-smoker History of edema History of echocardiogram Diabetes CPAP (continuous positive airway pressure) dependence Kidney stones BMI 60.0-69.9, adult Home Medications ?Medication ?Instructions ?Recorded ?Last Taken ?Type metformin 1,000 mg tablet 1,000 mg PO BIDCM DIABETES 05/19/18 03/21/24 History multivitamin 1 tab PO DAILY SUPPLEMENT 10/20/23 03/15/24 History ibuprofen 200 mg capsule 600 mg PO DAILY PRN PAIN 12/06/23 03/15/24 History phenazopyridine 200 mg tablet 200 mg PO TID PRN URINARY TRACT 03/22/24 03/21/24 History PAIN Allergy/AdvReac Type Severity Reaction Status Date / Time sulfamethoxazole (From Allergy SORES IN Verified 03/22/24 09:44 Septra) MOUTH trimethoprim (From ) Allergy SORES IN Verified 03/22/24 09:44 MOUTH Surgical History Hx of cystoscopy History of tonsillectomy and adenoidectomy Hx laparoscopic cholecystectomy S/P hysterectomy Social History Smoking Status: Never smoker ROS ROS ED Constitutional Constitutional ED: Reports chills and fever(s) Eyes Eyes: Denies change in vision Cardiovascular Cardiovascular: Denies chest pain Respiratory/Chest Respiratory/Chest: Denies cough or dyspnea Gastrointestinal Gastrointestinal: Reports abdominal pain; Denies constipation, diarrhea, nausea or vomiting Genitourinary Genitourinary ED: Reports dysuria and hematuria; Denies urinary frequency Musculoskeletal Musculoskeletal: Reports other Details: Left flank pain ; Denies arthralgias or myalgias Integumentary Denies rash Neurologic Neurologic: Reports headache(s); Denies paresthesias or weakness Psychiatric Psychiatric: Denies anxiety EXAM Physical Exam Const Vital Signs: 03/22/24 09:45 03/22/24 09:45 03/22/24 10:41 Temperature 98.8 F 98.8 F Temperature Source Oral Oral Pulse Rate 128 H 128 H Respiratory Rate 20 H 20 H Blood Pressure 171/102 H 171/102 H Blood Pressure Mean 125 125 Pulse Ox 98 99 Oxygen Delivery Method Room Air Room Air Room Air 03/22/24 10:52 03/22/24 11:07 03/22/24 12:00 Temperature 98.8 F 98.9 F Temperature Source Temporal Temporal Pulse Rate 128 H 85 102 H Respiratory Rate 20 H 23 H 23 H Blood Pressure 171/102 H 102/70 156/89 H Blood Pressure Mean 125 80 111 Pulse Ox 99 100 98 Oxygen Delivery Method Room Air Room Air Room Air 03/22/24 13:00 03/22/24 13:51 Temperature 98.3 F Temperature Source Pulse Rate 102 H 102 H Respiratory Rate 18 23 H Blood Pressure 156/83 H 156/93 H Blood Pressure Mean 107 114 Pulse Ox 98 99 Oxygen Delivery Method Room Air Positive well nourished and well developed Constitutional Narrative: BMI 70.8 General Appearance ED: well developed and NAD HEENT Reports moist mucous membranes Eyes PERRL and EOMs intact bilaterally Neck supple Chest Wall inspection of chest normal Resp normal respiratory effort and clear to auscultation bilaterally Cardio regular rate and regular rhythm GI non-distended GI Narrative: Mild tenderness palpation of the left lower quadrant Inspection: Negative for abdominal distention Auscultation: normoactive bowel sounds Palpation: soft; Negative for guarding Back/Spine no CVA tenderness Neuro oriented x3 Sensorium / Orientation: alert Motor Exam: Negative for general weakness Psych mental status grossly normal Skin no rashes or lesions noted and no wounds MDM MDM MDM Narrative Medical decision making narrative: Patient evaluated for reported fever at home as well as worsening left lower quadrant abdominal pain. She does have a stent in her left ureter which could be a nidus for infection. Upon arrival patient is hypertensive and tachycardic. Septic workup is ordered. Overall patient actually is pretty well-appearing. She is afebrile in the emergency room and did not take any antipyretics prior to arrival. Her workup is largely unremarkable with a normal CBC, lactate and CMP. Her creatinine is mildly elevated at 1.32 but this appears to be near her baseline. Urinalysis shows positive nitrites with 10-25 white blood cells however there is no bacteria seen. Her test is negative. I am not sure if these findings are confounded by the fact that the stent is in place. CT of the abdomen pelvis with contrast is obtained for concern of hydronephrosis versus malposition stent versus pyelonephritis versus diverticulitis. CT does show a left ureteral stent which is retracted 2.42 cm and requiring repositioning in addition to moderate left hydronephrosis which is new compared to February 03. I suspect this might be contributing to the patient's presentation. Patient is given IV fluids, Toradol for symptoms in the emergency room. On repeat evaluation she is continues to complain of a headache so she is also given Reglan and Benadryl. Case is discussed with the patient's urologist, Dr. Simmons. She is quite familiar with the patient. She recommends that the patient come to her office where she can remove the stent and follow her up outpatient. Will give her dose of IV Rocephin in the emergency room. Patient and family are agreeable with this plan of care. At this time patient overall is well-appearing and with the removal of stent in the office this afternoon I think will be fine to trial outpatient treatment. Patient discharged home in stable condition. Discussed with the patient's urologist who will manage further antibiotic prescriptions at her discretion. A urine and blood cultures are pending at this time. Lab Data Attestation: I reviewed the patient's lab results. Labs: Laboratory Results - last 24 hr 03/22/24 03/22/2403/22/24 10:15 10:30 10:35 WBC 9.9 RBC 5.10 Hgb 12.4 Hct 39.9 MCV 78.2 L MCH 24.3 L MCHC 31.1 L RDW Std Deviation 43.8 RDW Coeff of Gregory 15.5 H Plt Count 168 MPV 11.2 Immature Gran % (Auto) 0.600 Neut % (Auto) 78.7 H Lymph % (Auto) 8.2 L Tyler % (Auto) 11.9 H Eos % (Auto) 0.3 Baso % (Auto) 0.3 Absolute Neuts (auto) 7.8 H Absolute Lymphs (auto) 0.81 L Nucleated RBC % 0 PT 15.0 H INR 1.2 APTT 30.1 Sodium 141 Potassium 3.6 Chloride 108 H Carbon Dioxide 26.0 Anion Gap 7 BUN 16 Creatinine 1.32 H Estim Creat Clear Calc 99.14 Est GFR (MDRD) Af Amer 58 L Est GFR (MDRD) Non-Af 48 L BUN/Creatinine Ratio 12.1 Glucose 138 H Lactic Acid 1.7 Calcium 10.3 H Total Bilirubin 0.80 AST 26 ALT 33 Alkaline Phosphatase 109 Total Protein 8.1 Albumin 3.5 Globulin 4.6 H Albumin/Globulin Ratio 0.8 L Urine Color Yellow Urine Clarity Sl. Cloudy Urine pH 8.0 Ur Specific Mead 1.010 Urine Protein 30 H Urine Glucose (UA) Normal Urine Ketones Negative Urine Occult Blood 150 H Urine Nitrite Positive H Urine Bilirubin Negative Urine Urobilinogen 1 H Ur Leukocyte Esterase 500 H Urine RBC 5-10 SEEN Urine WBC 10-25 SEEN Ur Squamous Epith Cells 0-5 SEEN Urine Bacteria 0 SEEN Urine Mucus 0 SEEN Urine Test Negative Radiography Diagnostic Testing: Clinical Impression(s) from Imaging Studies Abdomen/Pelvis CT 03/22/24 10:44 IMPRESSION: 1. Left kidney: Interval placement of a left internal ureteral stent since the February 04, 2024 study. The coiled proximal portion of the ureteral stent is retracted 2.42 cm from the UPJ into the proximal one third ureter and should be repositioned into the pelvic or calyceal regions determined by the urologist. 2. Moderate left hydronephrosis is present which is a new finding when compared to the February 04, 2024 study Electronically Signed: Raciel Sue MD at 11:47 EDT , Discharge Plan Triage Chief Complaint: Flank Pain ED Provider: Megan Munoz Dx/Rx/DC Orders Clinical Impression: Malposition of ureteral stent, Left ureteral calculus, Acute left flank pain Instructions: ED Kidney Stone with Pain Prescriptions: No Action metformin 1,000 MG tablet 1,000 mg PO BIDCM multivitamin Tablet 1 tab PO DAILY ibuprofen 200 mg capsule 600 mg PO DAILY PRN (Reason: PAIN ) phenazopyridine 200 mg tablet 200 mg PO TID PRN (Reason: URINARY TRACT PAIN ) Primary Care Provider: Pedro Malik Referrals: Kenzie Simmons MD [Med Staff - Active Staff] - As soon as possible Pedro Malik MD [Primary Care Provider] - Activity Restrictions/Additional Instructions: Please go directly to Dr. Simmons's office where they will remove the stent. Print Language: [place] Leonean Disposition Disposition: Home, Self Care Discharge Date/Time: 03/22/24 13:53
[2024-03-22 12:00] VITALS: BP 156/89; PULSE 102; RESP 23; TEMP 37.2; O2SAT 98
[2024-03-22] MEDS: Metoclopramide 10 MG/2 ML Vial 5 MG IV (12:38)
[2024-03-22] MEDS: DiphenhydrAMINE 50 MG/ML Syringe 25 MG IV (12:38)
[2024-03-22] MEDS: Ceftriaxone 1 GM/50 ML BAG IV (12:39)
[2024-03-22 13:00] VITALS: BP 156/83; PULSE 102; RESP 18; O2SAT 98
[2024-03-22 13:51] VITALS: BP 156/93; PULSE 102; RESP 23; TEMP 36.8; O2SAT 99
== END 2024-03-22 13:53 | disposition home or self-care (01) ==
PROVIDERS: Emergency Provider Emergency Medicine; PCP Family Medicine; Visit Provider Emergency Medicine
DX: T83.89XA Other specified complication of genitourinary prosthetic devices, implants and grafts, initial encounter (principal); N20.1 Calculus of ureter; R51.9 Headache, unspecified; R50.9 Fever, unspecified; R10.32 Left lower quadrant pain; R30.0 Dysuria; R31.9 Hematuria, unspecified; Y73.2 Prosthetic and other implants, materials and accessory gastroenterology and urology devices associated with adverse incidents
CPT/HCPCS: 74177; 80053; 81001; 81025; 83605; 85025; 85610; 85730; 87040; 87077; 87086; 87088; 87186; 96361; 96365; 96375; 99284; J7030; J7050; Q9967; A4216

== ENCOUNTER 2024-03-24 10:06 | Inpatient (IN) | payer OTHER, SELFPAY ==
[2024-03-23 19:00] VITALS: BP 156/111; PULSE 118; RESP 18; TEMP 36.8; O2SAT 97
[2024-03-23 19:47] VITALS: BMI 67.3
[2024-03-23 19:59] VITALS: BP 171/93
--- NOTE | 2024-03-23 20:11 | US_ITS ---
STUDY: RENAL ULTRASOUND - COMPLETE REASON FOR EXAM: Female, 38 years old. left hydronephrosis TECHNIQUE: Ultrasound evaluation of the kidneys was performed with real-time and static figueredo-scale imaging. COMPARISON: CT 03/22/2024 FINDINGS: RIGHT KIDNEY: Normal location of the right kidney, which is normal in size. The right kidney measures 12.3 cm. There is a normal cortex of the right kidney. The renal cortex measures 1.8 cm. There is no right renal mass or cyst. Echogenic focus in lower pole the right kidney consistent with a nonobstructing stone. There is no right hydronephrosis. DISTAL RIGHT URETER: There is non-visualization of the distal right ureter. There is no demonstrated right ureterovesical junction calculus. There is a visualized right ureteral jet. LEFT KIDNEY: Normal location of the left kidney, which is normal in size. The left kidney measures 15.1 cm. There is a normal cortex of the left kidney. The renal cortex measures 1.8 cm. There is no left renal mass or cyst. There are no left renal calculi. There is mild hydronephrosis of the left kidney. DISTAL LEFT URETER: There is non-visualization of the distal left ureter. There is no demonstrated left ureterovesical junction calculus. There is a visualized left ureteral jet. BLADDER: The distended urinary bladder has a volume of 440 ml. The empty urinary bladder has a volume of ml. There is a normal wall thickness of the distended urinary bladder. There is no demonstrated mass within the urinary bladder. There are no demonstrated bladder calculi. US/Kidney and Bladder IMPRESSION: Mild left hydronephrosis. Electronically Signed: Teofilo Elliott MD at 21:41 EDT ,
[2024-03-23 20:54] LABS: Absolute Lymphocyte Count 1.32 X10^3/uL (0.83-4.51); Absolute Neutrophil Count 4.9 X10^3/uL (2.0-7.7); Basophil# 0.03 X10^3/uL; Basophil% 0.4 % (0-1); Eosinophil# 0.09 X10^3/uL; Eosinophils% 1.2 % (0-5); Hematocrit 37.8 % (37-47); Hemoglobin 11.5 g/dL (12.0-15.0); Lymphocyte # 1.32 X10^3/ul (0.83-4.51); Lymphocyte % 17.7 % (19-41); Mean Corp Hgb Conc 30.4 g/dL (32-36); Mean Corpuscular Hgb 24.2 pg (27.0-32.0); Mean Corpuscular Volume 79.4 fL (81-99); Mean Platelet Vol. 10.9 fl (6.2-12.0); Monocyte# 0.98 X10^3/uL; Monocyte% 13.2 % (0-10); NRBC Flagged by Analyzer 0 % (0-5); Neutrophil # 4.93 X10^3/uL (2.7-7.7); Neutrophil % 66.2 % (47-70); Platelet Count 175 K/mm3 (150-450); RBC Distribution Width CV 15.5 % (11.6-14.6); RBC Distribution Width SD 44.7 fl (35.1-43.9); Red Blood Count 4.76 M/mm3 (4.2-5.4); White Blood Count 7.5 K/mm3 (4.4-11.0)
[2024-03-23 21:05] VITALS: BP 171/93; PULSE 118
[2024-03-23] MEDS: Piperacil/Tazobactam 3.375 GM in 0.9% Normal Saline (50mL MB+) 50 ML IV (21:05)
[2024-03-23] MEDS: 0.9% Normal Saline (250mL Bag) 250 ML 15 ML IV (21:05)
[2024-03-23] MEDS: hydrALAZINE 10 MG Tablet PO (21:05)
[2024-03-23] MEDS: Acetaminophen 500 MG Tablet 1000 MG PO (21:06)
[2024-03-23] MEDS: 0.9% Saline Lock 10 ML Syringe IV (21:07)
[2024-03-23 21:08] LABS: Anion Gap 8 (5-15); BUN 14 mg/dL (7-18); BUN/Creat Ratio 12.5 RATIO (10-20); Calcium,Total 10.4 mg/dL (8.5-10.1); Chloride 111 mmol/L (98-107); Creatinine, Serum 1.12 mg/dL (0.55-1.02); EST Glomerular Filtration Rate 58 mL/min (>60); Est Glom Filt Rate - Afr Amer 70 mL/min (>60); Estimated Creatinine Clearance 112.98 ml/min; Glucose 100 mg/dL (74-106); Potassium 3.6 mmol/L (3.5-5.1); Sodium Level 142 mmol/L (136-145)
[2024-03-23] MEDS: Enoxaparin 40 MG/0.4 ML Syringe SC (22:13)
[2024-03-24 00:33] VITALS: TEMP 36.8
[2024-03-24 02:29] VITALS: BP 152/105; PULSE 86; RESP 18; TEMP 36.3; O2SAT 96
[2024-03-24] MEDS: Piperacil/Tazobactam 3.375 GM in 0.9% Normal Saline (50mL MB+) 50 ML IV (06:14)
[2024-03-24] MEDS: Acetaminophen 500 MG Tablet 1000 MG PO (06:14)
[2024-03-24 07:22] VITALS: O2SAT 94
[2024-03-24 08:08] VITALS: BP 153/97; PULSE 85; RESP 16; TEMP 37.1; O2SAT 95
[2024-03-24] MEDS: Enoxaparin 40 MG/0.4 ML Syringe SC (08:21)
[2024-03-24] MEDS: metFORMIN HCl 1,000 MG Tablet 1000 MG PO (08:22)
--- NOTE | 2024-03-24 11:28 | CASEMGMT ---
COLTON SHELBY Assessment Face to Face with patient for initial transition planning/care coordination assessment. COLTON SHELBY introduced self and role at [facility], pt voices understanding. Pt is A&Ox4 and is resting comfortably in bed and is calm. Pt at bedside. Care providers, pharmacy, and demographics verified. Admitting dx: Pyelonephritis PCP: Pedro Malik Specialists: Troy (Uro), Yakov (Endo) Preferred Pharmacy: [facility] Insurance: [employer] Prescription Benefit: Pt states that she uses [facility]: Cheng Wylie (H), Delphine Rocha (M) Living Arrangements: Pt lives with he in a single story home with one step to enter ADLs/IADLs: Ind Transportation: Pt hires drivers for transportation DME: CPAP, BGM and supplies HHC/SNF: Denies history or needs Pt?s goal: Home Plan: Pt denies the need for HHC or OP therapy. Pt states that she wishes to DC home once medically ready. Pt denies further questions or concerns at this time. Obed Low RN, CM
--- NOTE | 2024-03-24 12:21 | DCINST_ITS ---
Discharge Instructions Diet Discharge Diet: No restrictions Activity Discharge Activity: Return to Normal Activity Dressing / Incision Call your doctor if you observe: Fever of 101 or Higher, Inability to urinate and Inability to have a bowel movement Follow Up Care Please Follow Up With: Kenzie Simmons MD When: the office will call to make arrangements. Test Results: Test results from this visit will be discussed in further detail at your follow- up appointment, if applicable. Discharge Plan Admission Admit Date/Time: 03/24/24 10:06 Attending Provider: Kenzie Simmons Primary Care Provider: Pedro Malik Discharge Orders/Prescriptions Prescriptions: Continued metformin 1,000 MG tablet 1,000 mg PO BIDCM multivitamin Tablet 1 tab PO DAILY ibuprofen 200 mg capsule 600 mg PO DAILY PRN (Reason: PAIN ) phenazopyridine 200 mg tablet 200 mg PO TID PRN (Reason: URINARY TRACT PAIN ) ciprofloxacin HCl 500 mg tablet 500 mg PO BID Referrals / Follow Up: Pedro Malik MD [Primary Care Provider] - Disposition Disposition (needs filled in before D/C Order can be placed): Home, Self Care
--- NOTE | 2024-03-24 12:23 | HP.PCM_ITS ---
HPI - General General Date of Admission: 03/24/24 Chief Complaint: flank pain, positive blood cultures [facility] Heidi EDWARDS, is a 38 F who was seen in the emergency room 2 days ago for a malpositioned stent with fever and flank pain. Blood cultures were done at that time. She was sent to the office after receiving a dose of ceftriaxone and I removed the malpositioned left ureteral stent. She was sent then with 5 days of Cipro for management. I was then called by the hospital with a positive blood culture with gram-negative rods. The patient feels good today. She was admitted yesterday and placed on Zosyn. She had IV ceftriaxone followed by 24 hours of oral Cipro and was then placed on Zosyn at admission. Currently she feels good and is ready to go home. [facility] Medical History (Updated 03/24/24 @ 12:[address] Kenzie Simmons MD) Bacteremia Left ureteral calculus Cancer Multiple thyroid nodules Non-smoker History of edema History of echocardiogram Diabetes CPAP (continuous positive airway pressure) dependence Kidney stones BMI 60.0-69.9, adult Home Medications ?Medication ?Instructions ?Recorded ?Last Taken ?Type metformin 1,000 mg tablet 1,000 mg PO BIDCM DIABETES 05/19/18 03/21/24 History multivitamin 1 tab PO DAILY SUPPLEMENT 10/20/23 03/15/24 History ibuprofen 200 mg capsule 600 mg PO DAILY PRN PAIN 12/06/23 03/15/24 History phenazopyridine 200 mg tablet 200 mg PO TID PRN URINARY TRACT 03/22/24 03/21/24 History PAIN ciprofloxacin HCl 500 mg tablet 500 mg PO BID infection 03/23/24 Unknown History Allergy/AdvReac Type Severity Reaction Status Date / Time sulfamethoxazole (From Allergy SORES IN Verified 03/23/24 19:56 Septra) MOUTH trimethoprim (From ) Allergy SORES IN Verified 03/23/24 19:56 MOUTH Surgical History Hx of cystoscopy History of tonsillectomy and adenoidectomy Hx laparoscopic cholecystectomy S/P hysterectomy Social History Smoking Status: Never smoker ROS ROS Narrative No nausea, vomiting or chills. Pain is improved. No issues with eating or drinking or voiding. Vital Signs Vital Signs Vital Signs: 03/23/24 19:00 03/23/24 19:41 03/23/24 19:59 Temperature 98.3 F Temperature Source Oral Pulse Rate 118 H Pulse Strength Respiratory Rate 18 Respiratory Effort Normal Non-Labored Respiratory Depth Normal Respiratory Pattern Normal Blood Pressure 156/111 H 171/93 H Blood Pressure Mean 126 119 Blood Pressure Source Monitor Blood Pressure Position Semi-Fowlers Blood Pressure Location Left Arm Pulse Ox 97 Oxygen Delivery Method Room Air Room Air 03/23/24 21:05 03/23/24 22:00 03/24/24 00:33 Temperature 98.2 F Temperature Source Oral Pulse Rate 118 H Pulse Strength Normal (2+) Respiratory Rate Respiratory Effort Respiratory Depth Respiratory Pattern Blood Pressure 171/93 H Blood Pressure Mean Blood Pressure Source Blood Pressure Position Blood Pressure Location Pulse Ox Oxygen Delivery Method 03/24/24 02:29 03/24/24 07:22 03/24/24 08:08 Temperature 97.4 F L 98.7 F Temperature Source Oral Oral Pulse Rate 86 85 Pulse Strength Respiratory Rate 18 16 Respiratory Effort Respiratory Depth Respiratory Pattern Blood Pressure 152/105 H 153/97 H Blood Pressure Mean 120 115 Blood Pressure Source Monitor Monitor Blood Pressure Position Semi-Fowlers Semi-Fowlers Blood Pressure Location Right Arm Right Arm Pulse Ox 96 94 95 Oxygen Delivery Method CPAP Room Air Room Air Weight Weight: 178.1 kg Body Mass Index (BMI) 67.3 Physical Exam Const alert, oriented x3 and no apparent distress HEENT normocephalic, head/scalp atraumatic, hearing grossly normal bilaterally, external nose normal and moist oral mucous membranes Eyes General Eye: normal appearance of both eyes Neck supple General: normal visual inspection and trachea midline Lymph Lymphatic: no lymphedema noted Chest inspection of chest normal Resp normal respiratory effort, normal air movement, no retractions and no use of accessory muscles Cardio regular rate Cardio Narrative: She was tachycardic and this has improved. She is continuing to have issues with hypertension. This will be addressed with her primary care physician. GI soft to palpation and non-tender Extremity normal to inspection Skin no rashes or lesions noted, no jaundice, no petechiae and no mottling Neuro oriented x3, CN's II-XII intact bilaterally and moves all extremities Psych mental status grossly normal Results Lab / Micro Data Lab results narrative: Urine culture results reveal E. coli that is sensitive to Cipro, ceftriaxone and Zosyn 03/23/24 20:46 03/23/24 20:46 Labs: Laboratory Results - last 24 hr 03/23/24 20:46: WBC 7.5, RBC 4.76, Hgb 11.5 L, Hct 37.8, MCV 79.4 L, MCH 24.2 L, MCHC 30.4 L, RDW Std Deviation 44.7 H, RDW Coeff of Gregory 15.5 H, Plt Count 175, MPV 10.9, Immature Gran % (Auto) 1.300 H, Neut % (Auto) 66.2, Lymph % (Auto) 17.7 L, Roosevelt % (Auto) 13.2 H, Eos % (Auto) 1.2, Baso % (Auto) 0.4, Absolute Neuts (auto) 4.9, Absolute Lymphs (auto) 1.32, Nucleated RBC % 0, Sodium 142, Potassium 3.6, Chloride 111 H, Carbon Dioxide 23.0, Anion Gap 8, BUN 14, C reatinine 1.12 H, Estim Creat Clear Calc 112.98, Est GFR (MDRD) Af Amer 70, Est GFR (MDRD) Non-Af 58 L, BUN/Creatinine Ratio 12.5, Glucose 100, Calcium 10.4 H Imaging Radiology Impression Renal Ultrasound 03/23/24 20:11 IMPRESSION: Mild left hydronephrosis. Electronically Signed: Teofilo Elliott MD at 21:41 EDT , Assessment & Plan Assessment/Plan (1) Kidney stones: (2) Bacteremia: PLAN: Plan She will be discharged home to complete her course of Cipro Follow-up in the office for further management of her kidney stones and mild left hydronephrosis
== END 2024-03-24 15:30 | disposition home or self-care (01) | DRG 694 ==
PROVIDERS: Admitting Provider Urology; PCP Family Medicine; Visit Provider Urology
DX: N13.2 Hydronephrosis with renal and ureteral calculous obstruction (principal); R78.81 Bacteremia; E11.9 Type 2 diabetes mellitus without complications; Z90.710 Acquired absence of both cervix and uterus; Z90.49 Acquired absence of other specified parts of digestive tract
CPT/HCPCS: 36415; 76770; 80048; 85025; J7050; A4216

== ENCOUNTER 2024-04-27 18:30 | Emergency (ER) | payer OTHER, SELFPAY ==
[2024-04-27] VITALS (7 sets, daily range): BP systolic 141–183; BP diastolic 75–107; PULSE 102–123; RESP 18–22; TEMP 37.5–38.7; O2SAT 94–100; BMI 71.6
--- NOTE | 2024-04-27 18:44 | CT_ITS ---
STUDY: CT ABDOMEN AND PELVIS WITHOUT CONTRAST REASON FOR EXAM: Female, 38 years old. L flank pain RADIATION DOSAGE (If Supplied By Facility): CTDIvol = ( 34.45 ) mGy, DLP = ( 1910.97 ) mGycm TECHNIQUE: Transaxial images were obtained from the dome of the diaphragm to the symphysis pubis without oral contrast, and without intravenous contrast. Sagittal and coronal images were reconstructed. Individualized dose optimization techniques were used for this CT. COMPARISON: March 22, 2024 FINDINGS: The visualized lung bases are unremarkable. The visualized portions of the heart are within normal limits. There is hepatomegaly with diffuse hepatic enlargement. There is decreased attenuation of the liver consistent with steatosis. Gallbladder is not seen consistent with cholecystectomy. There is moderate splenomegaly. Normal pancreas. Normal bilateral adrenal glands. There are at least 5 stones of the right kidney measuring up to 0.9 cm. There is 0.9 cm stone in the lower pole of the left kidney . There is mild left hydronephrosis. Normal visualized stomach. Normal small intestine. Normal colon. The appendix is visualized and appears normal. Normal abdominal aorta. Normal inferior vena cava. Normal retroperitoneum. Normal urinary bladder. There is absence of the uterus consistent with a prior hysterectomy. There is no free fluid in the abdomen or pelvis. Normal abdominal wall. There are diffuse degenerative changes of the visualized lumbar spine. CT/Abdomen/Pelvis without Cont IMPRESSION: Bilateral renal stones. Mild left hydronephrosis. Hepatosplenomegaly. Fatty infiltration of the liver. Electronically Signed: Yan Ricardo MD at 20:35 EDT ,
[2024-04-27 19:01] LABS: Bacteria 0 SEEN /hpf (None Seen); Mucous, Urine 0 SEEN /hpf (<or=2+)
[2024-04-27 19:02] LABS: Absolute Lymphocyte Count 1.22 X10^3/uL (0.83-4.51); Absolute Neutrophil Count 8.3 X10^3/uL (2.0-7.7); Basophil# 0.03 X10^3/uL; Basophil% 0.3 % (0-1); Eosinophil# 0.08 X10^3/uL; Eosinophils% 0.7 % (0-5); Hematocrit 40.3 % (37-47); Hemoglobin 12.3 g/dL (12.0-15.0); Lymphocyte # 1.22 X10^3/ul (0.83-4.51); Mean Corp Hgb Conc 30.5 g/dL (32-36); Mean Corpuscular Hgb 24.5 pg (27.0-32.0); Mean Corpuscular Volume 80.1 fL (81-99); Mean Platelet Vol. 10.9 fl (6.2-12.0); Monocyte# 1.34 X10^3/uL; Monocyte% 12.1 % (0-10); NRBC Flagged by Analyzer 0 % (0-5); Neutrophil # 8.28 X10^3/uL (2.7-7.7); Neutrophil % 74.9 % (47-70); Platelet Count 176 K/mm3 (150-450); RBC Distribution Width CV 15.7 % (11.6-14.6); RBC Distribution Width SD 45.3 fl (35.1-43.9); Red Blood Count 5.03 M/mm3 (4.2-5.4); White Blood Count 11.1 K/mm3 (4.4-11.0)
[2024-04-27 19:03] LABS: Color, Urine Yellow (Yellow); Glucose, Dipstick Normal (Normal); Ketone-Dipstick Negative (Negative); Leukocyte Esterase-Dipstick 500 /ul (Negative); Nitrite-Dipstick Positive (Negative); Occult Blood-Urine 250 /ul (Negative); Protein-Dipstick 30 mg/dl (Negative); Urine Bilirubin Dipstick Negative (Negative); Urine Clarity Sl. Cloudy (Clear); Urine Urobilinogen Normal (Normal)
[2024-04-27] MEDS: 0.9% Normal Saline (1000mL) 1,000 ML 999 ML IV (19:03)
[2024-04-27] MEDS: Acetaminophen 500 MG Tablet 1000 MG PO (19:04)
[2024-04-27] MEDS: Ketorolac 30 MG/ML Syringe IV (19:04)
[2024-04-27 19:11] LABS: Red Blood Cells-Urine 0-5 SEEN /hpf (0-5); Squamous Epithelial Cells - UA 0-5 SEEN /hpf (5-10); White Blood Cells 10-25 SEEN /hpf (0-5)
[2024-04-27 19:12] LABS: Internal QC Validated? YES +Cl - CLEAR BKGD; Pregnancy, Urine Negative Negative
[2024-04-27 19:16] LABS: International Normalized Ratio 1.2; Partial Thromboplast Time 34.3 Seconds (24.1-36.2); Prothrombin Time (Protime)PT. 15.5 SECONDS (11.7-14.9)
[2024-04-27 19:24] LABS: ALB/GLOB Ratio 0.7 RATIO (0.9-2.4); AST(SGOT) 40 U/L (15-37); Alanine Aminotransfer ALT/SGPT 55 U/L (13-56); Albumin, Serum 3.4 g/dL (3.2-5.0); Alkaline Phosphatase 122 U/L (45-117); Anion Gap 4 (5-15); BUN 12 mg/dL (7-18); BUN/Creat Ratio 9.3 RATIO (10-20); Calcium,Total 10.4 mg/dL (8.5-10.1); Chloride 108 mmol/L (98-107); Creatinine, Serum 1.29 mg/dL (0.55-1.02); EST Glomerular Filtration Rate 49 mL/min (>60); Est Glom Filt Rate - Afr Amer 60 mL/min (>60); Estimated Creatinine Clearance 102.31 ml/min; Globulin 4.9 g/dL (2.2-4.2); Glucose 100 mg/dL (74-106); Potassium 3.7 mmol/L (3.5-5.1); Protein, Total 8.3 g/dL (6.4-8.2); Sodium Level 137 mmol/L (136-145)
--- NOTE | 2024-04-27 19:29 | ED.VIS.GI ---
HPI HPI - GI History of Present Illness Chief Complaint: Flank Pain Informant: patient and spouse/S.O. Narrative Narrative: Patient states yesterday morning started having left flank pain suddenly, feels like prior kidney stones, 2 hours later started passing what looked like sand/sediment. Over the course of the day she took some ibuprofen which helped, her pain has not been as severe today she had a low-grade fever yesterday but it became upward of 102 today which is why she presents here. She is not having dysuria or hematuria, pain in her left flank is still present in her back and side/left lower quadrant, it is mild-moderate and tolerable she is more concerned about the fevers. Her urologist is Dr. Simmons. [facility] Medical History Anemia Excessive and frequent menstruation with irregular cycle Bacteremia Left ureteral calculus Cancer Multiple thyroid nodules Non-smoker History of edema History of echocardiogram Diabetes CPAP (continuous positive airway pressure) dependence Kidney stones BMI 60.0-69.9, adult Home Medications ?Medication ?Instructions ?Recorded ?Last Taken ?Type metformin 1,000 mg tablet 1,000 mg PO BIDCM DIABETES 05/19/18 03/21/24 History multivitamin 1 tab PO DAILY SUPPLEMENT 10/20/23 03/15/24 History ibuprofen 200 mg capsule 600 mg PO DAILY PRN PAIN 12/06/23 03/15/24 History phenazopyridine 200 mg tablet 200 mg PO TID PRN URINARY TRACT 03/22/24 03/21/24 History PAIN ciprofloxacin HCl 500 mg tablet 500 mg PO BID #14 tabs 04/27/24 Unknown Rx Allergy/AdvReac Type Severity Reaction Status Date / Time sulfamethoxazole (From Allergy SORES IN Verified 04/27/24 18:30 Sept) MOUTH trimethoprim (From ) Allergy SORES IN Verified 04/27/24 18:30 MOUTH Surgical History Hx of cystoscopy History of tonsillectomy and adenoidectomy Hx laparoscopic cholecystectomy S/P hysterectomy Social History Smoking Status: Never smoker ROS ROS ED Constitutional Constitutional ED: Reports chills and fever(s) Eyes Eyes: Denies change in vision or diplopia ENT ENT ED: Denies rhinorrhea or sore throat Cardiovascular Cardiovascular: Denies chest pain or palpitations Respiratory/Chest Respiratory/Chest: Denies cough or dyspnea Gastrointestinal Gastrointestinal: Reports abdominal pain and nausea; Denies diarrhea or vomiting Genitourinary Genitourinary ED: Reports flank pain; Denies dysuria or hematuria Musculoskeletal Musculoskeletal: Reports back pain; Denies neck pain Integumentary Denies abscess or rash Neurologic Neurologic: Denies headache(s), paresthesias or weakness Psychiatric Psychiatric: Denies anxiety or suicidal thoughts EXAM Physical Exam Const Vital Signs: 04/27/24 18:30 04/27/24 18:56 04/27/24 18:57 Temperature 99.8 F H 101.7 F H Temperature Source Temporal Oral Pulse Rate 123 H 115 H Respiratory Rate 20 H 22 H Blood Pressure 183/107 H 176/96 H Blood Pressure Mean 132 122 Pulse Ox 98 100 100 Oxygen Delivery Method Room Air Room Air Room Air 04/27/24 19:32 04/27/24 20:30 04/27/24 21:00 Temperature 101.3 F H 99.5 F H 99.5 F H Temperature Source Oral Oral Oral Pulse Rate 113 H 102 H 102 H Respiratory Rate 18 19 H 19 H Blood Pressure 156/93 H 141/75 H 141/75 H Blood Pressure Mean 114 97 97 Pulse Ox 95 95 95 Oxygen Delivery Method Room Air Room Air Room Air Positive well nourished, well developed and obese Constitutional Narrative: Well-appearing General Appearance ED: well developed and NAD Nutritional Appearance: obese HEENT Reports moist mucous membranes normocephalic and atraumatic Eyes PERRL and EOMs intact bilaterally Neck full ROM and supple Resp normal respiratory effort and clear to auscultation bilaterally Cardio regular rate, regular rhythm and no murmurs GI non-tender and non-distended Auscultation: normoactive bowel sounds Palpation: soft Back/Spine General Back: CVA tenderness left (Mild) and other FROM Extremity normal to inspection General Extremety ED: Negative for edema, pulses abnormal or tenderness General Extremity: Negative for edema or pulses abnormal Neuro oriented x3, CN's II-XII intact bilaterally and no sensory deficits noted Sensorium / Orientation: awake and alert Motor Exam: strength 5/5 throughout Skin no rashes or lesions noted and no wounds MDM MDM MDM Narrative Medical decision making narrative: Given his symptoms and possibility of an infected kidney stone and history of bacteremia, septic workup was obtained and we treated her with IV fluids, Tylenol for the fever, and Toradol for the pain she did not require quire any nausea medications, while we obtain workup including urinalysis and CT. Urinalysis is consistent with infection, she has a very mild leukocytosis, and her lactate is within normal limits. Blood cultures were sent given her prior history as above. Looking at the specifics, she had a ureteral stent after lithotripsy, that has since been removed. She had urine and blood cultures that grew out E. coli I reviewed the sensitivities, sensitive to both cephalosporins and ciprofloxacin. I reviewed her CT images and report here which I agree with, it is consistent with some mild hydronephrosis on the left where she is having the pain but no obstructing stones. Clinically she was passing stone fragments yesterday. I suspect she passed the stones but may have a residual infection. Open to treat her as pyelonephritis, she is tolerating the pain very well after just Toradol, she is doing very well clinically, her fever is down after Tylenol and so sister tachycardia. She is not septic appearing clinically and agrees that she feels well enough to go home. I am giving her a dose of IV Rocephin after all the cultures were sent, kidney function is normal so I think she can go home on ciprofloxacin for the next week and that she can follow-up with urology. Her urologist is out of town right now there is no one else on-call for her so I think following up as an outpatient right now is okay. Started her on Cipro as well. Lab Data Attestation: I reviewed the patient's lab results. Labs: Laboratory Results - last 24 hr 04/27/24 04/27/24 18:36 18:51 WBC 11.1 H RBC 5.03 Hgb 12.3 Hct 40.3 MCV 80.1 L MCH 24.5 L MCHC 30.5 L RDW Std Deviation 45.3 H RDW Coeff of Gregory 15.7 H Plt Count 176 MPV 10.9 Immature Gran % (Auto) 1.000 H Neut % (Auto) 74.9 H Lymph % (Auto) 11.0 L [place] % (Auto) 12.1 H Eos % (Auto) 0.7 Baso % (Auto) 0.3 Absolute Neuts (auto) 8.3 H Absolute Lymphs (auto) 1.22 Nucleated RBC % 0 PT 15.5 H INR 1.2 APTT 34.3 Sodium 137 Potassium 3.7 Chloride 108 H Carbon Dioxide 25.0 Anion Gap 4 L BUN 12 Creatinine 1.29 H Estim Creat Clear Calc 102.31 Est GFR (MDRD) Af Amer 60 Est GFR (MDRD) Non-Af 49 L BUN/Creatinine Ratio 9.3 L Glucose 100 Lactic Acid 1.0 Calcium 10.4 H Total Bilirubin 0.70 AST 40 H ALT 55 Alkaline Phosphatase 122 H Total Protein 8.3 H Albumin 3.4 Globulin 4.9 H Albumin/Globulin Ratio 0.7 L Urine Color Yellow Urine Clarity Sl. Cloudy Urine pH 8.0 Ur Specific [place] 1.010 Urine Protein 30 H Urine Glucose (UA) Normal Urine Ketones Negative Urine Occult Blood 250 H Urine Nitrite Positive H Urine Bilirubin Negative Urine Urobilinogen Normal Ur Leukocyte Esterase 500 H Urine RBC 0-5 SEEN Urine WBC 10-25 SEEN Ur Squamous Epith Cells 0-5 SEEN Urine Bacteria 0 SEEN Urine Mucus 0 SEEN Urine Test Negative Radiography Diagnostic Testing: Clinical Impression(s) from Imaging Studies Abdomen/Pelvis CT 04/27/24 18:44 IMPRESSION: Bilateral renal stones. Mild left hydronephrosis. Hepatosplenomegaly. Fatty infiltration of the liver. Electronically Signed: Yan Ricardo MD at 20:35 EDT Reading Location ID and State: [address] [place] [address] , Service support , Discharge Plan Triage Chief Complaint: Flank Pain ED Provider: Yan Mercado Dx/Rx/DC Orders Clinical Impression: Pyelonephritis, Bilateral nephrolithiasis Instructions: ED Kidney Stone, Passed, ED Pyelonephritis, Female (Adult) Prescriptions: Continued metformin 1,000 MG tablet 1,000 mg PO BIDCM multivitamin Tablet 1 tab PO DAILY ibuprofen 200 mg capsule 600 mg PO DAILY PRN (Reason: PAIN ) phenazopyridine 200 mg tablet 200 mg PO TID PRN (Reason: URINARY TRACT PAIN ) ciprofloxacin HCl 500 mg tablet 500 mg PO BID Qty: 14 0RF Primary Care Provider: Pedro Malik Referrals: Kenzie Simmons MD [Med Staff - Active Staff] - (when able) Pedro Malik MD [Primary Care Provider] - Print Language: Mohawk Disposition Disposition: Home, Self Care
[2024-04-27] MEDS: Ceftriaxone 1 GM/50 ML BAG IV (20:51)
[2024-04-27] MEDS: Ciprofloxacin 500 MG Tablet PO (21:39)
== END 2024-04-27 21:40 | disposition home or self-care (01) ==
PROVIDERS: Emergency Provider Emergency Medicine; PCP Family Medicine; Visit Provider Emergency Medicine
DX: N13.6 Pyonephrosis (principal); E11.9 Type 2 diabetes mellitus without complications; Z79.84 Long term (current) use of oral hypoglycemic drugs; Z79.899 Other long term (current) drug therapy; Z87.442 Personal history of urinary calculi
CPT/HCPCS: 74176; 80053; 81001; 81025; 83605; 85025; 85610; 85730; 87040; 87077; 87086; 87088; 87186; 96361; 96365; 96375; 99284; J7030; J7040; A4216

== ENCOUNTER 2024-06-08 07:04 | Day surgery (SDC) | payer SELFPAY, OTHER ==
[2024-06-08] VITALS (7 sets, daily range): BP systolic 110–140; BP diastolic 72–94; PULSE 77–93; RESP 16–18; TEMP 36.3–37.1; O2SAT 90–96; BMI 71.2
--- NOTE | 2024-06-08 07:28 | PRE.ANES_ITS ---
ASA Classification* ASA Classification ASA Classification: 3 Assessment & Plan Anesthesia* Anesthesia Assessment Anesthesia Assessment: Discussed sedation and/or anesthesia options, risks, benefits, and alternatives with patient/parents/legal guardian/POA. Questions invited. The patient/parents/legal guardian/POA seems to understand and agrees to proceed with anesthesia plan. Reviewed the physical assessment, medical history, allergy history and patient home medications list prior to surgery/procedure/anesthetic and documented any changes. Performed airway and anesthesia risk assessments. Anesthesia Type Anesthesia Type: General (*see written pre anesthesia record for full assessment) Anesthesia Focused Assessment* Airway Assessment Mouth opens: >3 cm Mallampati Score: III Focused Labs Anesthesia Preop lab: CBC WBC 11.1 K/mm3 (4.4-11.0) H 04/27/24 18:51 RBC 5.03 M/mm3 (4.2-5.4) 04/27/24 18:51 Hgb 12.3 g/dL (12.0-15.0) 04/27/24 18:51 Hct 40.3 % (37-47) 04/27/24 18:51 Plt Count 176 K/mm3 (150-450) 04/27/24 18:51 CHEMISTRY Potassium 3.7 mmol/L (3.5-5.1) 04/27/24 18:51 Sodium 137 mmol/L (136-145) 04/27/24 18:51 BUN 12 mg/dL (7-18) 04/27/24 18:51 Creatinine 1.29 mg/dL (0.55-1.02) H 04/27/24 18:51 Glucose 100 mg/dL (74-106) 04/27/24 18:51 POC Glucose 91 mg/dL (74-106) 03/16/24 13:36 TSH 0.89 uIU/mL (0.358-3.74) 10/21/23 05:45 COAG PT 15.5 SECONDS (11.7-14.9) H 04/27/24 18:51 Urine Test Negative Negative 04/27/24 18:36 Pre-Assessment Diagnosis/Proposed Procedure Planned Operative Procedure(s): CYSTOSCOPY, LEFT URETEROSCOPY, LASER LITHOTRIPSY, STONE BASKET EXTRACTION, LEFT STENT INSERTION Anesthesia History 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 Any Problems With Anesthesia No 06/01/24 07:58 Cholinesterase deficiency No 06/01/24 07:58 You/Your Family Experience No 06/01/24 07:58 fever (hyperthermia) with Relationship Recent Exposure to Contagious No 03/16/24 11:16 Disease Does patient have nerve No 06/01/24 07:58 stimulator Patient instructed to have device shut off --Does patient have Pacemaker or ICD? When Was Last Pacemaker Check QUESTION #4 FULL TEXT: You/Your Family Experience fever (hyperthermia) with Anesthesia Last Oral Intake Last Oral intake: Last Oral Intake NPO since Meds taken in AM with sips of water? Meds patient instructed to take am of surgery PONV PONV - scuba dive training instructor: PONV - scuba dive training instructor Female Yes 06/01/24 07:58 HX of Motion Sickness No 06/01/24 07:58 HX of N/V After Surgery No 06/01/24 07:58 Non-Smoker Yes 06/01/24 07:58 Duration of Surgery greater Yes 06/01/24 07:58 than 60 minutes Number of Risk Factors 3 06/01/24 07:58 PONV Score Moderate Risk 06/01/24 07:58 Height & Weight Height & Weight: Anesthesia: Height & Weight Height 5 ft 4 in 04/27/24 18:30 Respiratory Assessment Respiratory Assessment - scuba dive training instructor: Respiratory Tract Infection Hx - scuba dive training instructor Hx Respiratory Tract Infection No 06/01/24 07:58 STOP Sleep Apnea STOP Sleep Apnea - scuba dive training instructor: STOP Sleep Apnea - scuba dive training instructor Hx Hypertension Yes: NO BP MEDS 06/01/24 07:58 Hx Sleep Apnea Yes 06/01/24 07:58 CPAP Yes 06/01/24 07:58 BIPAP No 06/01/24 07:58 Do you snore loudly (louder than talking or can be heard Do you often feel tired/ fatigued/ sleepy during daytime? Has anyone observed you stop breathing during sleep? STOP Results Positive 06/01/24 07:58 QUESTION #5 FULL TEXT : Do you snore loudly (louder than talking or can be heard through closed doors)? 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: Tobacco Use History - scuba dive training instructor Tobacco Use Smoking Status Never smoker 06/01/24 07:58 Hx Tobacco Use No 06/01/24 07:58 Years Smoking Packs Smoked per Day Smoking Cessation Date was within the last 15 years Hx Smoking Cessation Date Hx Smoking Cessation Counseling Hematologic Medial History Hematologic Hx - scuba dive training instructor: Hematologic Medical Hx - rn documentation specialist Hx of Blood Transfusion No 06/01/24 07:58 Hx of Transfusion in last 3 No 06/01/24 07:58 Months Date of Last Transfusion (if within last 3 months) Ever experience any problems No 06/01/24 07:58 with transfusion(s)? Specify any problems Hx of Preganancy in last 3 No 06/01/24 07:58 Months Nurse Filling Out Transfusion [id number] 06/01/24 07:58 & Questions: Date: 06/01/24 06/01/24 07:58 Time: 08:06/01/24 07:58 Patient unable to answer at this time (ie. confused, unrespo /Reproduction History /Reproductive History - scuba dive training instructor: /Reproductive Hx- scuba dive training instructor Hx Now Gestational Age (in weeks): EDC: Hx Hx Para Hx Section SAB No 06/01/24 07:58 Active Medications Active Medications: Current Medications Generic Name Dose Route Start Last Admin Trade Name Freq PRN Reason Stop Dose Admin Cefazolin Sodium 2 gm/ Sodium 110 mls @ 150 mls/hr 06/08/24 08:25 Chloride IV 06/08/24 09:08 PREOP ONE Lactated Ringer's 1,000 mls @ 15 mls/hr 06/08/24 07:15 IV .Q48H HUGO PFSH Medical History Anemia Excessive and frequent menstruation with irregular cycle Bacteremia Left ureteral calculus Cancer Multiple thyroid nodules Non-smoker History of edema History of echocardiogram Diabetes CPAP (continuous positive airway pressure) dependence Kidney stones BMI 60.0-69.9, adult Home Medications ?Medication ?Instructions ?Recorded ?Last Taken ?Type metformin 1,000 mg tablet 1,000 mg PO BIDCM DIABETES 05/19/18 03/21/24 History multivitamin 1 tab PO DAILY SUPPLEMENT 10/20/23 03/15/24 History ibuprofen 200 mg capsule 600 mg PO DAILY PRN PAIN 12/06/23 03/15/24 History Allergy/AdvReac Type Severity Reaction Status Date / Time sulfamethoxazole (From Allergy SORES IN Verified 06/08/24 07:29 Sept) MOUTH trimethoprim (From ) Allergy SORES IN Verified 06/08/24 07:29 MOUTH Surgical History Hx of cystoscopy History of tonsillectomy and adenoidectomy Hx laparoscopic cholecystectomy S/P hysterectomy Social History Smoking Status: Never smoker Review of Systems (Anesthesia) ROS Narrative System reviewed and no additional complaints, except as documented.
[2024-06-08] MEDS: Lactated Ringers 1,000 ML 15 ML IV (07:31)
[2024-06-08 07:57] LABS: Bedside Glucose 103 mg/dL (74-106)
[2024-06-08] MEDS: Cefazolin 2 GM in 0.9% Normal Saline (100mL Bag) 100 ML IV (08:18)
--- NOTE | 2024-06-08 08:20 | OP.PCM_ITS ---
Report of Operation Date of Procedure: 06/08/24 Pre-Operative Diagnosis: left renal stones Post-Operative Diagnosis: same, left ureteral stricture Surgery/Procedure Performed:: cystoscopy with left ureteroscopy and stent insertion Surgeon: Kenzie Simmons Type of Anesthesia: General Specimen's removed: None Description of Procedure: The patient is a 38-year-old female with bilateral stones. She is here for ureteroscopy laser lithotripsy and stone basket extraction, stent insertion. Informed consent was obtained. The patient was taken to the operating room and placed on the operating room table. Anesthesia monitored the head, neck, airway, IV access and vital signs throughout the case. Once anesthesia was appropriately administered, she was placed into dorsal lithotomy position and was prepped and draped in usual sterile fashion. The cystoscope was inserted through the urethra under direct visualization into the urinary bladder. The left ureteral orifice was identified and intubated with a 0.035 Glidewire which advanced easily into the renal pelvis. An attempt was made at passing a second 0.035 Glidewire for flexible ureteroscopy. This wire was unable to pass. The semirigid ureteroscope was then utilized to intubate the left ureteral orifice and advanced to the level of the obstruction which revealed a ureteral stricture. An attempt was then made to pass a 6 Angolan 24 cm JJ stent stent. This stent would not pass over the wire. The decision was made to place a 4.5 Angolan stent which went without difficulty. The patient's bladder was then emptied and the cystoscope was removed. She was awakened and taken to the recovery room in good condition. There were no complications during the procedure. Grafts/Implants Used: 4.5 [place]olan by 24 cm JJ stent Complications none Admit VTE Documentation VTE Present on Admission: Yes VTE Mechan Device Prophylaxis: SCD's VTE Pharm Prophylaxis ordered?: No Reason prophylaxis not ordered:: Treatment Not Indicated
--- NOTE | 2024-06-08 08:22 | DCINST_ITS ---
Discharge Instructions Diet Discharge Diet: No restrictions Activity Discharge Activity: Return to Normal Activity Dressing / Incision Call your doctor if you observe: Fever of 101 or Higher, Inability to urinate and Inability to have a bowel movement Follow Up Care Please Follow Up With: Kenzie Simmons MD When: The office will call her to make arrangements for referral to tertiary [facility]. Test Results: Test results from this visit will be discussed in further detail at your follow- up appointment, if applicable. Discharge Plan Admission Attending Provider: Kenzie Simmons Primary Care Provider: Pedro Malik Instructions Print Language: Urdu Discharge Orders/Prescriptions Prescriptions: New oxycodone-acetaminophen [Percocet] 5-325 mg tablet 1 tab PO Q8H PRN (Reason: pain) 3 Days Qty: 10 0RF phenazopyridine [Pyridium] 200 mg tablet 200 mg PO TID PRN PRN (Reason: Bladder Spasms) 7 Days Qty: 30 0RF Continued metformin 1,000 MG tablet 1,000 mg PO BIDCM multivitamin Tablet 1 tab PO DAILY ibuprofen 200 mg capsule 600 mg PO DAILY PRN (Reason: PAIN ) Referrals / Follow Up: Pedro Malik MD [Primary Care Provider] - Disposition Disposition (needs filled in before D/C Order can be placed): Home, Self Care
--- NOTE | 2024-06-08 09:02 | PCM.POST.ANE ---
Anesthesia: Postop Eval I Current Vital Signs Temperature: 98.7 F Pulse Rate: 92 Blood Pressure: 112/72 Respiratory Rate: 18 Pulse Ox: 93 Assessment Airway patent: Yes Spontaneous unlabored respirations: Yes nausea: No Vomiting: No Anesthesia Complication: No Fluid Hydration Crystalloid volume administer (ml): 500 Total IV fluid infused: 500 Progress Note Anesthesia document: Postop Eval 1 completed: Yes
--- NOTE | 2024-06-08 09:44 | POSTOPAN2_ITS ---
Anesthesia Postop Eval I Sum Postop Eval Completion status Anesthesia document: Postop Eval 1 completed: Yes Anesthesia Postop Eval I Summary Anesthesia Postop Eval I Summary: Anesthesia Postop Eval I: Assessment Summary Airway patent Yes 06/08/24 09:02 ADHESION [email or web address].CSIR Spontaneous unlabored Yes 06/08/24 09:02 ADHESION TESTER.CSIR respirations Mental status nausea No 06/08/24 09:02 ADHESION TESTER.CSIR Vomiting No 06/08/24 09:02 ADHESION TESTER.CSIR Anesthesia Postop Eval I: Fluid Summary Crystalloid volume administer 500 06/08/24 09:02 ADHESION TESTER.CSIR (ml) Colloids volume administered ( ml) Blood Product volume administered (ml) Total IV fluid infused 500 06/08/24 09:02 ADHESION TESTER.CSIR Anesthesia Postop Eval I: Summary Notes Anesthesia Complication No 06/08/24 09:02 ADHESION TESTER.CSIR Anesthesia Complication Comment: Post-operative progress note Anesthesia: Postop Eval II Evaluation Mental status: Awake Pain Level: 0 nausea: No Vomiting: No
--- NOTE | 2024-06-08 09:44 | PCM.POSTANE2 ---
Anesthesia Postop Eval I Sum Postop Eval Completion status Anesthesia document: Postop Eval 1 completed: Yes Anesthesia Postop Eval I Summary Anesthesia Postop Eval I Summary: Anesthesia Postop Eval I: Assessment Summary Airway patent Yes 06/08/24 09:02 AEROSPACE ENGINEER OFFICER ARMAMENT.CSIR Spontaneous unlabored Yes 06/08/24 09:02 AEROSPACE ENGINEER OFFICER ARMAMENT.CSIR respirations Mental status nausea No 06/08/24 09:02 AEROSPACE ENGINEER OFFICER ARMAMENT.CSIR Vomiting No 06/08/24 09:02 AEROSPACE ENGINEER OFFICER ARMAMENT.CSIR Anesthesia Postop Eval I: Fluid Summary Crystalloid volume administer 500 06/08/24 09:02 AEROSPACE ENGINEER OFFICER ARMAMENT.CSIR (ml) Colloids volume administered ( ml) Blood Product volume administered (ml) Total IV fluid infused 500 06/08/24 09:02 AEROSPACE ENGINEER OFFICER ARMAMENT.CSIR Anesthesia Postop Eval I: Summary Notes Anesthesia Complication No 06/08/24 09:02 AEROSPACE ENGINEER OFFICER ARMAMENT.CSIR Anesthesia Complication Comment: Post-operative progress note Anesthesia: Postop Eval II Evaluation Mental status: Awake Pain Level: 0 nausea: No Vomiting: No
== END 2024-06-08 10:35 | disposition home or self-care (01) ==
LOC: SDC 07:06 → AC 07:07
PROVIDERS: PCP Family Medicine; Referring Provider Urology; Visit Provider Urology
PROC: 0TJ98ZZ Inspection of Ureter, Via Natural or Artificial Opening Endoscopic (ICD-10-PCS; CPT 52352; principal; 2024-06-08 08:15)
DX: N20.0 Calculus of kidney (principal); E11.9 Type 2 diabetes mellitus without complications; N13.5 Crossing vessel and stricture of ureter without hydronephrosis; I10 Essential (primary) hypertension; N39.0 Urinary tract infection, site not specified; Z90.49 Acquired absence of other specified parts of digestive tract; Z90.710 Acquired absence of both cervix and uterus
CPT/HCPCS: 52356; 00918; 76000; 82962; J7120; C2617; J2405